=== PATIENT | male | born 1985 | race Caucasian/White ===

== ENCOUNTER 2018-06-15 06:54 | Emergency (ER) | payer OTHER ==
--- OUTSIDE RECORDS SUMMARY | 2018-06-15 06:56 | XMS REPORT | Clinical Summary ---
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 Last Filed Vital Signs Not on file Plan of Treatment Not on file Results Not on fileafter 06/14/2017 Insurance Payer Benefit Plan / Group Subscriber ID Type Phone Address MEDICARE MEDICARE PART A AND B xxxxxxxxxx Medicare [place], [place] Advance Directives Patient has advance care planning documents on file. For more information, please contact:[phone] [place] [address]
[2018-06-15] MEDS ORDERED: LORAZEPAM 1 MG TABLET ONE (07:38)
[2018-06-15] MEDS ORDERED: CLINDAMYCIN 600MG/D5W 0 MG/0 ML BAG IV ONE (07:38)
--- NOTE | 2018-06-15 08:00 | EDPHYS ---
Physician Documentation [facility] Name: Osvaldo Crowe Age: 33 yrs Sex: Male : 1985 Arrival Date: 06/15/2018 Time: 06:57 Bed 6 Private MD: ED Physician Nicola Moore HPI: 06/15 07:35 This 33 yrs old Male presents to ER via Ambulatory with complaints of kb Anxiety, hand cellulitis. 07:37 The patient presents with cellulitis of the left hand. Description: erythematous, kb swollen, warm. Onset: The symptoms/episode began/occurred 2 day(s) ago. Possible cause(s): unknown. Associated signs and symptoms: Pertinent positives: erythema, swelling, Pertinent negatives: discharge, drainage, foreign body sensation, fever, headache, nausea, shortness of breath, vomiting. Modifying factors: the symptoms are alleviated by nothing, the symptoms are aggravated by sitting, squeezing the lesion and expressing the contents, touching. Severity of symptoms: At their worst the symptoms were moderate, severe, in the emergency department the symptoms are unchanged. The patient has not experienced similar symptoms in the past. The patient has not recently seen a physician. Historical: - Allergies: 07:27 No Known Allergies; ss - PMHx: 07:27 Anxiety; Bipolar disorder; Depression; Schizophrenia; Panic Attacks; Seizures; ss - PSHx: 07:27 Open heart surgery; ss - Immunization history:: Adult Immunizations up to date. - Social history:: Smoking status: Patient uses tobacco products, smokes one pack cigarettes per day. - Ebola Screening: : Patient denies exposure to infectious person Patient denies travel to an Ebola-affected area in the 21 days before illness onset. ROS: 07:36 Constitutional: Negative for fever, chills, and weight loss, ENT: Negative for injury, kb pain, and discharge, Neck: Negative for injury, pain, and swelling, Cardiovascular: Negative for chest pain, palpitations, and edema, Respiratory: Negative for shortness of breath, cough, wheezing, and pleuritic chest pain, Abdomen/GI: Negative for abdominal pain, nausea, vomiting, diarrhea, and constipation, Back: Negative for injury and pain, : Negative for injury, bleeding, discharge, and swelling, MS/Extremity: Negative for injury and deformity. 07:36 Skin: Positive for cellulitis, erythema, swelling, of the left hand. 07:37 Psych: Positive for anxiety, Negative for depression, drug dependence, alcohol kb dependence, auditory hallucinations, visual hallucinations, homicidal ideation, insomnia, suicide gesture, suicidal ideation. Exam: 07:36 Constitutional: This is a well developed, well nourished patient who is awake, alert, kb and in no acute distress. Head/Face: Normocephalic, atraumatic. ENT: Nares patent. No nasal discharge, no septal abnormalities noted. Tympanic membranes are normal and external auditory canals are clear. Oropharynx with no redness, swelling, or masses, exudates, or evidence of obstruction, uvula midline. Mucous membranes moist. Neck: Trachea midline, no thyromegaly or masses palpated, and no cervical lymphadenopathy. Supple, full range of motion without nuchal rigidity, or vertebral point tenderness. No Meningismus. Chest/axilla: Normal chest wall appearance and motion. Nontender with no deformity. No lesions are appreciated. Cardiovascular: Regular rate and rhythm with a normal S1 and S2. No gallops, murmurs, or rubs. Normal PMI, no JVD. No pulse deficits. Respiratory: Lungs have equal breath sounds bilaterally, clear to auscultation and percussion. No rales, rhonchi or wheezes noted. No increased work of breathing, no retractions or nasal flaring. Abdomen/GI: Soft, non-tender, with normal bowel sounds. No distension or tympany. No guarding or rebound. No evidence of tenderness throughout. MS/ Extremity: Pulses equal, no cyanosis. Neurovascular intact. Full, normal range of motion. Neuro: Awake and alert, GCS 15, oriented to person, place, time, and situation. Cranial nerves II-XII grossly intact. Motor strength 5/5 in all extremities. Sensory grossly intact. Cerebellar exam normal. Normal gait. 07:36 Skin: cellulitis, that is moderate, that is severe, on the left hand. 07:36 Psych: Behavior/mood is cooperative, anxious, Affect is animated, Oriented to person, place, time, Patient has no thoughts/intents to harm self or others. Judgement / Insight is normal. Memory is normal. Delusions/hallucinations are not present. Vital Signs: 07:27 BP 146 / 91; Pulse 98; Resp 20; Temp 98.9(TE); Pulse Ox 99% on R/A; Weight 63.5 kg; ss Height 5 ft. 3 in. (160.02 cm); Pain 5/10; 07:27 Body Mass Index 24.80 (63.50 kg, 160.02 cm) ss MDM: 07:17 Patient medically screened. kb 07:33 Data reviewed: vital signs, nurses notes. Data interpreted: Pulse oximetry: on room air kb is 99 %. Interpretation: normal. 07:54 Counseling: I had a detailed discussion with the patient and/or guardian regarding: the kb historical points, exam findings, and any diagnostic results supporting the discharge/admit diagnosis, the need for further work-up and treatment in the hospital. Refusal of service: The patient/guardian displays adequate decision making capability and despite a detailed discussion of alternatives, benefits, risks, and consequences refuses: Admission to the hospital for further work-up and treatment, all lab tests, Medications. ED course: Pt refuses IV and blood work. States he cannot handle needles and just wants to go home. States "I will take whatever medicine I need, but please just let me go home. I don't want to be here." Pt tearful and anxious. Educated on need for IV antibiotics due to hand infection and risk of going home without recommended treatment. Pt still wants to leave, refuses IV and labs. Will give PO clindamycin. Pt educated on importance of returning for worsening symptoms. Pt states he will come back if it gets worse. . Administered Medications: 07:31 Drug: Ativan 1 mg Route: PO; sv 08:12 Follow up: Response: No adverse reaction; Anxiety decreased ss 08:02 Not Given (Patient Refused): Clindamycin 600 mg IVPB once over 30 mins; (mix in 50 mL) sv 08:02 Drug: Clindamycin 300 mg Route: PO; sv 08:12 Follow up: Response: Medication administered at discharge. ss Disposition: 06/16 07:32 Co-signature as Attending Physician, Nicola Moore MD I agree with the assessment and kdr plan of care. Disposition: 06/15/18 07:59 Patient has left against medical advice. Impression: Cellulitis of left upper limb - left hand. - Patients states they are going to Home. - Condition is Stable. - Discharge Instructions: Cellulitis, Adult, [id number]. - Prescriptions for Clindamycin HCl 300 mg Oral Capsule - take 1 capsule by ORAL route every 6 hours for 10 days; 40 capsule. Follow up: Emergency Department; When: As needed; Reason: Worsening of condition. Follow up: Private Physician; When: 2 - 3 days; Reason: Recheck today's complaints, Continuance of care, Re-evaluation by your physician. - Problem is new. - Symptoms are unchanged. Signatures: Dispatcher [employer] EDEvie Cody, DANDRE-Germán AMOS-Keri Ash, RN RN sv Nicola Moore MD MD [facility] Divya Conroy RN RN ss Corrections: (The following items were deleted from the chart) 06/15 08:02 07:23 IV Saline Lock ordered. kb 08:12 07:59 06/15/2018 07:59 Patients has left against medical advice. Impression: Cellulitis ss of left upper limb - left hand. Patient states they are going to Home. Condition is Stable. Follow up: Emergency Department; When: As needed; Reason: Worsening of condition. Follow up: Private Physician; When: 2 - 3 days; Reason: Recheck today's complaints, Continuance of care, Re-evaluation by your physician. Problem is new. Symptoms are unchanged. kb
--- NOTE | 2018-06-15 08:00 | ER ---
Nurse's Notes [facility] Name: Osvaldo Crowe Age: 33 yrs Sex: Male : 1985 Arrival Date: 06/15/2018 Time: 06:57 Bed 6 Private MD: Diagnosis: Cellulitis of left upper limb-left hand Presentation: 06/15 07:24 Presenting complaint: Patient states: L hand redness, pain and swelling that began 3 ss weeks ago as a "spider bite" as reported by patient and is now affecting the whole hand. Transition of care: patient was not received from another setting of care. Onset of symptoms was May 2018. Risk Assessment: Do you want to hurt yourself or someone else? Patient reports no desire to harm self or others. Initial Sepsis Screen: Does the patient meet any 2 criteria? HR > 90 bpm. Does the patient have a suspected source of infection? No. Patient's initial sepsis screen is negative. Care prior to arrival: None. 07:24 Method Of Arrival: Ambulatory ss 07:24 Acuity: LUCERO 3 ss Historical: - Allergies: 07:27 No Known Allergies; ss - PMHx: 07:27 Anxiety; Bipolar disorder; Depression; Schizophrenia; Panic Attacks; Seizures; ss - PSHx: 07:27 Open heart surgery; ss - Immunization history:: Adult Immunizations up to date. - Social history:: Smoking status: Patient uses tobacco products, smokes one pack cigarettes per day. - Ebola Screening: : Patient denies exposure to infectious person Patient denies travel to an Ebola-affected area in the 21 days before illness onset. Screenin:27 Abuse screen: Denies threats or abuse. Denies injuries from another. Nutritional sv screening: No deficits noted. Tuberculosis screening: No symptoms or risk factors identified. Fall Risk None identified. Assessment: 07:27 General: Appears uncomfortable, Behavior is anxious, crying, uncooperative, Family at sv the bedside. Pt immediately started crying and trying to get out of bed upon entry to the room to give him Ativan. Pt not wanting anything done. Family at bedside informed pt of the medication and I reinforced education. Pt now ok to take medication to help calm him down.. Neuro: Level of Consciousness is awake, alert, obeys commands, Oriented to person, place, time, situation. Respiratory: Respiratory effort is even, unlabored, Respiratory pattern is regular, symmetrical. 08:10 Reassessment: Pt and family member verbalizes understanding significant importance of ss following up with PCP as soon as possible. Pt is grateful for care received. Vital Signs: 07:27 BP 146 / 91; Pulse 98; Resp 20; Temp 98.9(TE); Pulse Ox 99% on R/A; Weight 63.5 kg; ss Height 5 ft. 3 in. (160.02 cm); Pain 5/10; 07:27 Body Mass Index 24.80 (63.50 kg, 160.02 cm) ss ED Course: 06:57 Patient arrived in ED. es 07:11 Evie Mccormick [facility]-C [facility]. kb 07:11 Connor Harry MD is Attending Physician. kb 07:20 Keri Mcconnell, TANNA is Primary Nurse. sv 07:26 Triage completed. ss 07:27 Arm band placed on right wrist. ss 07:27 Patient has correct armband on for positive identification. Bed in low position. Adult sv w/ patient. 07:59 Nicola Moore MD is Attending Physician. kb 08:10 No provider procedures requiring assistance completed. Patient did not have IV access ss during this emergency room visit. Administered Medications: 07:31 Drug: Ativan 1 mg Route: PO; sv 08:12 Follow up: Response: No adverse reaction; Anxiety decreased ss 08:02 Not Given (Patient Refused): Clindamycin 600 mg IVPB once over 30 mins; (mix in 50 mL) sv 08:02 Drug: Clindamycin 300 mg Route: PO; sv 08:12 Follow up: Response: Medication administered at discharge. ss Outcome: 08:10 AMA AMA form signed ss 08:10 Condition: stable 08:10 Discharge instructions given to patient, family, Instructed on discharge instructions, follow up and referral plans. medication usage, Demonstrated understanding of instructions, follow-up care, medications, Prescriptions given X 1. 08:12 Patient left the ED. ss Signatures: Evie Mccormick FNP-C FNP-Keri Ash, RN RN Sulma Andrade Shelby, RN RN
[2018-06-15] MEDS ORDERED: CLINDAMYCIN HCL 150 MG CAP ONE (08:10)
== END 2018-06-15 08:12 | disposition left against medical advice (07) ==
LOC: ER 06:54
DX: L03.114 Cellulitis of left upper limb (principal); F17.210 Nicotine dependence, cigarettes, uncomplicated
CPT/HCPCS: 99283

== ENCOUNTER 2019-06-15 07:57 | Emergency (ER) | payer OTHER ==
--- OUTSIDE RECORDS SUMMARY | 2019-06-15 08:00 | XMS REPORT ---
:1985 [facility] Address [address] [place] [address] Dr. Juares [address] [place] [id number] Care Team Providers Name Role Phone Unavailable Unavailable Unavailable Problems This patient has no known problems. Allergies, Adverse Reactions, Alerts This patient has no known allergies or adverse reactions. Medications This patient has no known medications.
--- OUTSIDE RECORDS SUMMARY | 2019-06-15 08:01 | XMS REPORT | Summary of Care ---
:1985 Author Organization [facility] - [facility] Address [address] [place] [address] Care Team Providers Name Role Phone Jesus Alberto Hernandez MD Primary Care Provider Unavailable Reason for Referral Radiology Services (STAT) Status Reason Specialty Diagnoses / Referred By Referred To Procedures Contact Contact New Request Diagnostic Diagnoses Suicidal ideation Edenilson Granados Radiology Procedures XR CHEST 1 III, [address] [facility] [place] [address] Radiology Services (STAT) Status Reason Specialty Diagnoses / Referred By Referred To Procedures Contact Contact New Request Diagnostic Diagnoses Suicidal ideation Edenilson Granados Radiology Procedures XR CHEST 1 III, [address] [facility] [place] [address] Reason for Visit Reason Comments Medication Problem Auth/Cert Status Reason Specialty Diagnoses / Referred By Referred To Procedures Contact Contact [facility] [address] [place] [address] [place] [address] Encounter Details Date Type Department Care Team Description 02/17/2019 - Emergency ADC-Emergency Edenilson Granados Suicidal ideation 02/18/2019 Department III, PA (Primary Dx) [address] [place] [address] [place] [address] [place], [place] [id number] Allergies Active Allergy Reactions Severity Noted Date Comments Ibuprofen Palpitations 09/09/2016 documented as of this encounter (statuses as of 02/18/2019) Medications Medication Sig Dispensed Refills Start Date End Date Status acetaminophen (TYLENOL) Take 2 tablets by 30 tablet 0 04/28/2016 Active 325 mg tablet mouth every 6 (six) hours as needed for Pain (scale 1-3) or Pain (scale 4-6). multivitamin tablet Take 1 tablet by 30 tablet 0 04/28/2016 Active mouth daily. documented as of this encounter (statuses as of 02/18/2019) Active Problems Problem Noted Date Acute respiratory failure 04/24/2016 Major depressive disorder, recurrent episode, severe 03/04/2006 Overview: ICD10 Diagnosis Term System Support Analyst Utility Other and unspecified alcohol dependence 03/04/2006 documented as of this encounter (statuses as of 02/18/2019) Social History Tobacco Use Types Packs/Day Years Used Date Never Assessed Sex Assigned at Date Recorded Not on file Job Start Date Occupation Industry Not on file Not on file Not on file Travel History Travel Start Travel End No recent travel history available. documented as of this encounter Last Filed Vital Signs Vital Sign Reading Time Taken Comments Blood Pressure 102/66 02/18/2019 1:30 AM CDT Pulse 71 02/18/2019 1:30 AM CDT Temperature 36.5 C (97.7 F) 02/17/2019 10:19 PM CDT Respiratory Rate 18 02/18/2019 1:30 AM CDT Oxygen Saturation 98% 02/18/2019 1:30 AM CDT Inhaled Oxygen Concentration - - Weight 59.9 kg (132 lb) 02/17/2019 10:19 PM CDT Height 165.1 cm (5' 5") 02/17/2019 10:19 PM CDT Body Mass Index 21.97 02/17/2019 10:19 PM CDT documented in this encounter Plan of Treatment Health Maintenance Due Date Last Done Comments PNEUMOCOCCAL 0-64 YEARS COMBINED SERIES (1 of 1 - 1990 PPSV23) VARICELLA VACCINES (1 of 2 - 13+ 2-dose series) 1997 DTaP,Tdap,and Td Vaccines (1 - Tdap) 2003 INFLUENZA VACCINE (Retired version) 02/26/2019 documented as of this encounter Procedures Procedure Name Priority Date/Time Associated Comments Diagnosis XR CHEST 1 VW STAT 02/17/2019 10:59 Suicidal ideation Results for this PM CDT procedure are in the results section. CBC WITH DIFFERENTIAL STAT 02/17/2019 10:57 Suicidal ideation Results for this PM CDT procedure are in the results section. ADC / LCC - DRUG STAT 02/17/2019 10:57 Suicidal ideation Results for this SCREEN TRIAGE PM CDT procedure are in the results section. URINALYSIS STAT 02/17/2019 10:57 Suicidal ideation Results for this PM CDT procedure are in the results section. CBC WITH DIFF Routine 02/17/2019 10:57 Suicidal ideation Results for this PM CDT procedure are in the results section. ETHANOL STAT 02/17/2019 10:57 Suicidal ideation Results for this PM CDT procedure are in the results section. ACETAMINOPHEN STAT 02/17/2019 10:57 Suicidal ideation Results for this PM CDT procedure are in the results section. COMP. METABOLIC PANEL STAT 02/17/2019 10:57 Suicidal ideation Results for this (99689) PM CDT procedure are in the results section. THYROID STIMULATING STAT 02/17/2019 10:57 Suicidal ideation Results for this HORMONE PM CDT procedure are in the results section. EKG-12 LEAD Routine 02/17/2019 10:31 PM CDT documented in this encounter Results XR CHEST 1 VW (02/17/2019 10:59 PM CDT) Specimen Impressions Performed At [facility]/VR/DOSE No acute cardiopulmonary abnormality. Elizabet Pfeiffer MD., have reviewed this study and agree with the above report. Narrative Performed At * * * * * * * * ORIGINAL REPORT * * * * * * * * [facility]/VR/DOSE XR CHEST 1 VW HISTORY: Admission clearance COMPARISON: 04/16/2016 FINDINGS: The lungs are clear. No focal consolidation, pneumothorax, or pleural effusion is seen. The cardiomediastinal silhouette is normal. No acute osseous abnormality. Procedure Note [facility], Radiant Results Inft User - 02/17/2019 11:52 PM CDT * * * * * * * * ORIGINAL REPORT * * * * * * * * XR CHEST 1 VW HISTORY: Admission clearance COMPARISON: 04/16/2016 FINDINGS: The lungs are clear. No focal consolidation, pneumothorax, or pleural effusion is seen. The cardiomediastinal silhouette is normal. No acute osseous abnormality. IMPRESSION No acute cardiopulmonary abnormality. Tanika Pfeiffer MD., have reviewed this study and agree with the above report. Performing Organization Address City/State/Zipcode Phone Number [facility]//DOSE CBC WITH DIFFERENTIAL (02/17/2019 10:57 PM CDT) WBC 7.35 4.20 - 10.[address] [facility] 10*3/L [facility] RBC 4.68 4.26 - 5.[address] [facility] 10*6/L [facility] HGB 14.0 12.2 - 16.4 g/dL [facility] HCT 42.0 38.4 - 49.3 % [facility] MCV 89.7 81.7 - 95.6 fL [facility] MCH 29.9 26.1 - 32.7 pg [facility] MCHC 33.3 31.2 - 35.0 g/dL [facility] RDW-SD 43.0 38.5 - 51.6 fL [facility] RDW-CV 12.9 12.1 - 15.4 % [facility] PLT 230 150 - [address] [facility] 10*3/L [facility] MPV 9.7 (L) 9.8 - 13.0 fL [facility] NRBC/100 WBC 0.0 0.0 - 10.0 /[address] [facility] WBCs [facility] NRBC x10^3 <0.01 10*3/L [facility] GRAN MAT (NEUT) % 57.3 % [facility] IMM GRAN % 0.40 % [facility] LYMPH % 32.4 % [facility] MONO % 8.7 % [facility] EOS % 0.8 % [facility] BASO % 0.4 % [facility] GRAN MAT x10^3(ANC) 4.21 1.99 - 6.[address] [facility] 10*3/uL [facility] IMM GRAN x10^3 0.03 0.00 - [address] [facility] 10*3/uL [facility] LYMPH x10^3 2.38 1.09 - 3.[address] [facility] 10*3/uL [facility] MONO x10^3 0.64 0.36 - [address] [facility] 10*3/uL [facility] EOS x10^3 0.06 0.06 - [address] [facility] 10*3/uL [facility] BASO x10^3 0.03 0.01 - 0.[address] [facility] 10*3/uL [facility] Specimen Blood - VENOUS Performing Organization Address City/[facility]/Zipcode Phone Number [facility] CLIA: [id number], [address] [place] [address] URINALYSIS (02/17/2019 10:57 PM CDT) APPEARANCE Slightly Cloudy (A) Clear [facility] COLOR Yellow Yellow [facility] PH 7.0 4.8 - 8.0 [facility] SP GRAVITY 1.020 1.003 - 1.030 [facility] GLU U QUAL Negative Negative [facility] BLOOD Negative Negative [facility] KETONES Negative Negative [facility] PROTEIN Negative Negative [facility] UROBILIN 0.2 mg/dL 0-1.0 mg/dL [facility] BILIRUBIN Negative Negative [facility] NITRITE Negative Negative [facility] LEUK LYNN Negative Negative [facility] RBC/HPF 1 0 - 3 HPF [facility] WBC/HPF 0 0 - 5 HPF [facility] BACTERIA Few (A) Negative [facility] AMORPHOUS Moderate HPF [facility] Specimen Urine - URINE, CLEAN CATCH Performing Organization Address City/[facility] Phone Number [facility] CLIA: [id number], [address] [place] [address] COMP. METABOLIC PANEL (76248) (02/17/2019 10:57 PM CDT) NA 142 135 - 145 mmol/L [facility] K 4.0 3.5 - 5.0 mmol/L [facility] CL 107 98 - 108 mmol/L [facility] CO2 TOTAL 24 23 - 31 mmol/L [facility] AGAP 11 2 - 16 [facility] BUN 16 7 - 23 mg/dL [facility] GLUCOSE 105 70 - 110 mg/dL [facility] CREATININE 0.74 0.60 - 1.[address] [facility] mg/dL [facility] TOTAL BILI 0.3 0.1 - 1.1 mg/dL [facility] CALCIUM 9.5 8.6 - 10.6 mg/dL [facility] T PROTEIN 7.0 6.3 - 8.2 g/dL [facility] ALBUMIN 4.3 3.5 - 5.0 g/dL [facility] ALK PHOS 97 34 - 122 U/L [facility] ALT(SGPT) 16 9 - 51 U/L [facility] AST(SGOT) 18 13 - 40 U/L [facility] eGFR Calculation 121.1 mL/min/1.73m2 [facility] (Non-) [facility] eGFR Calculation 146.7 mL/min/1.73m2 [facility] () [facility] Specimen Blood - VENOUS Narrative Performed At Association of Glomerular Filtration Rate (GFR) [facility] and Staging of Kidney Disease* + + +- + | GFR (mL/min/1.73 m2)| With Kidney Damage|Without Kidney Damage + + +- + |>90| Stage one| Normal + + +- + |60-89|S tage two| Decreased GFR + + +- + |30-59|S tage three| Stage three + + +- + |15-29|S tage four | Stage four + + +- + |<15 (or dialysis)|Stage five | Stage five + + +- + *Each stage assumes the associated GFR level has been in effect for at least three months.Stages 1 to 5, with or without kidney disease, indicate chronic kidney disease. Notes: Determination of stages one and two (with eGFR >59mL/min/1.73 m2) requires estimation of kidney damage for at least three months as defined by structural or functional abnormalities of the kidney, manifested by either: Pathological abnormalities or Markers of kidney damage (including abnormalities in the composition of the blood or urine or abnormalities in imaging tests). Performing Organization Address City/[facility]/Zipcode Phone Number [facility] CLIA: [id number], [address] [place] [address] THYROID STIMULATING HORMONE (02/17/2019 10:57 PM CDT) TSH 4.66 0.45 - 4.70 mIU/L [facility] Specimen Blood - VENOUS Performing Organization Address City/[facility]/Zipcode Phone Number [facility] CLIA: [id number], [address] [place] [address] ETHANOL (02/17/2019 10:57 PM CDT) ALCOHOL <10 mg/dL [facility] Specimen Blood - VENOUS Narrative Performed At <10 Negative [facility] LAB[facility]ORY 50-100 Toxic >100 Depression of TIP MENDER >400 Fatalities Reported Performing Organization Address [facility] Facility[facility] Phone Number [facility] CLIA: [id number], [address] [place] [address] ADC / LCC - DRUG SCREEN TRIAGE (02/17/2019 10:57 PM CDT) BENZO U Negative Negative [facility]OR[facility] VENKATESH U Negative Negative [facility] AMPHET Negative Negative [facility] THC Negative Negative [facility] METHADONE Negative Negative [facility] Meth U Negative Negative [facility] OPIATES Negative Negative [facility] Cocaine Metabolite Negative Negative [facility] PROPOXY Negative Negative [facility] Tric U Negative Negative [facility] PCP Negative Negative [facility] OXYCOD Negative Negative [facility] Specimen Urine - URINE, CLEAN CATCH Narrative Performed At Urine Drug Cutoff Ranges [facility] Benzodiazepines: 150 ng/mL Barbiturates: 200 ng/mL Amphetamine: 500 ng/mL Cannabinoids: 50ng/mL Methadone: 200 ng/mL Methamphetamine: 500 ng/mL Opiates: 100 ng/mL or 2000 ng/mL Cocaine: 150 ng/mL Propoxyphene:300 ng/mL Tricyclics:300 ng/mL Oxycodone: 100 ng/mL PCP: 25ng/mL The results are to be used only for medical (i.e., treatment) purposes. Unconfirmed screening results must not be used for non-medical purposes (e.g., employment testing, legal testing). Performing Organization Address [facility] Phone Number [facility] CLIA: [id number], [address] [place] [address] ACETAMINOPHEN (02/17/2019 10:57 PM CDT) ACETAMINOP <10.0 (L) 10.0 - 30.0 ug/mL [facility]ORY Specimen Blood - VENOUS Narrative Performed At Toxic: Greater than 200 ug/mL @ 4 hour post [facility] ingestion or greater than 50 ug/mL @ 12 hour post ingestion Performing Organization Address City/State/Zipcode Phone Number [facility] CLIA: [id number], [address] [place] [address] documented in this encounter Visit Diagnoses Diagnosis Suicidal ideation - Primary documented in this encounter Insurance Payer Benefit Plan / Subscriber ID Effective Dates Phone Address Type Group MEDICARE MEDICARE PART xxxxxxxxxx 2016-Nhi [phone] [address] Medicare [id number] [place] [phone] (Home) [place] [address] documented as of this encounter
--- NOTE | 2019-06-15 08:15 | EDPHYS ---
Physician Documentation [facility] Name: Osvaldo Crowe Age: 34 yrs Sex: Male : 1985 Arrival Date: 06/15/2019 Time: 07:59 Bed 5 Private MD: ED Physician Connor Harry HPI: 06/15 08:39 This 34 yrs old Male presents to ER via Ambulatory with complaints of Hand snw Injury. 08:39 The patient or guardian reports pain. The complaints affect the PIP of right index snw finger, PIP of right middle finger, PIP of right ring finger and PIP of right little finger. Context: The problem was sustained at home, resulted from a direct blow, by a heavy object. Onset: The symptoms/episode began/occurred suddenly, today. Modifying factors: the symptoms are aggravated by touching area. Associated signs and symptoms: The patient has no apparent associated signs or symptoms. Severity of symptoms: At their worst the symptoms were mild, moderate. The patient has experienced similar episodes in the past. It is unknown whether or not the patient has recently seen a physician. multiple surgical procedures on right hand s/p remote injury, very poor rom of fingers since. Historical: - Allergies: 08:04 No Known Drug Allergies; sv - PMHx: 08:04 Anxiety; Bipolar disorder; Depression; Panic Attacks; Schizophrenia; Seizures; sv - PSHx: 08:04 Open heart surgery; sv 08:11 hand; sv - Immunization history:: Adult Immunizations up to date. - Social history:: Smoking status: Patient uses tobacco products. - Ebola Screening: : No symptoms or risks identified at this time. ROS: 08:38 Constitutional: Negative for fever, chills, and weight loss, Eyes: Negative for injury, snw pain, redness, and discharge, ENT: Negative for injury, pain, and discharge, Neck: Negative for injury, pain, and swelling, Cardiovascular: Negative for chest pain, palpitations, and edema, Respiratory: Negative for shortness of breath, cough, wheezing, and pleuritic chest pain, Abdomen/GI: Negative for abdominal pain, nausea, vomiting, diarrhea, and constipation, Back: Negative for injury and pain, : Negative for injury, bleeding, discharge, and swelling, Skin: Negative for injury, rash, and discoloration, Neuro: Negative for headache, weakness, numbness, tingling, and seizure. 08:38 MS/extremity: Positive for abrasion, contusion, pain, of the dorsal aspect of middle phalanx of right index finger, dorsal aspect of middle phalanx of right middle finger, dorsal aspect of middle phalanx of right ring finger and dorsal aspect of middle phalanx of right little finger. Exam: 08:33 Constitutional: This is a well developed, well nourished patient who is awake, alert, snw and in no acute distress. Head/Face: Normocephalic, atraumatic. Eyes: Pupils equal round and reactive to light, extra-ocular motions intact. Lids and lashes normal. Conjunctiva and sclera are non-icteric and not injected. Cornea within normal limits. Periorbital areas with no swelling, redness, or edema. ENT: Nares patent. No nasal discharge, no septal abnormalities noted. Tympanic membranes are normal and external auditory canals are clear. Oropharynx with no redness, swelling, or masses, exudates, or evidence of obstruction, uvula midline. Mucous membranes moist. Neck: Trachea midline, no thyromegaly or masses palpated, and no cervical lymphadenopathy. Supple, full range of motion without nuchal rigidity, or vertebral point tenderness. No Meningismus. Chest/axilla: Normal chest wall appearance and motion. Nontender with no deformity. No lesions are appreciated. + scar to central chest, post heart surgery as a baby Cardiovascular: Regular rate and rhythm with a normal S1 and S2. No gallops, murmurs, or rubs. Normal PMI, no JVD. No pulse deficits. Respiratory: Lungs have equal breath sounds bilaterally, clear to auscultation and percussion. No rales, rhonchi or wheezes noted. No increased work of breathing, no retractions or nasal flaring. Abdomen/GI: Soft, non-tender, with normal bowel sounds. No distension or tympany. No guarding or rebound. No evidence of tenderness throughout. Back: No spinal tenderness. No costovertebral tenderness. Full range of motion. Neuro: Awake and alert, GCS 15, oriented to person, place, time, and situation. Cranial nerves II-XII grossly intact. Motor strength 5/5 in all extremities. Sensory grossly intact. Cerebellar exam normal. Normal gait. Psych: Awake, alert, with orientation to person, place and time. Behavior, mood, and affect are within normal limits. 08:33 Musculoskeletal/extremity: Extremities: grossly normal except: noted in the right hand: decreased ROM, claw shaped hand with decreased ROM of digits 2nd to remote injury with multiple surgical procedures, increased sensation to area, Circulation is intact in all extremities. increased 08:33 Skin: Appearance: normal except for affected area, injury, abrasion(s), small abrasion noted, of the dorsal aspect of middle phalanx of right middle finger. Vital Signs: 08:11 BP 132 / 88; Pulse 85; Resp 18; Temp 98; Pulse Ox 100% ; Weight 59.87 kg; Height 5 ft. sv 5 in. (165.10 cm); Pain 6/10; 08:11 Body Mass Index 21.97 (59.87 kg, 165.10 cm) sv MDM: 08:14 Patient medically screened. snw 08:37 Data reviewed: vital signs, nurses notes. Data interpreted: Pulse oximetry: on room air snw is 100 %. Interpretation: normal. Counseling: I had a detailed discussion with the patient and/or guardian regarding: the historical points, exam findings, and any diagnostic results supporting the discharge/admit diagnosis, the presence of at least one elevated blood pressure reading (>120/80) during this emergency department visit, the need for outpatient follow up, for definitive care, to return to the emergency department if symptoms worsen or persist or if there are any questions or concerns that arise at home. Special discussion: I have referred the patient to see his PCP for further evaluation of high blood pressure. Based on the history and exam findings, there is no indication for further emergent testing or inpatient evaluation. I discussed with the patient/guardian the need to see the hand specialist for further evaluation of the symptoms. I discussed with the patient/guardian the need to see the primary care provider for further evaluation of the symptoms. Administered Medications: 08:25 Drug: [place] 5 mg-325 mg 1 tabs {Note: rass1.} Route: PO; sv 08:25 Follow up: Response: Medication administered at discharge. sv 08:25 Drug: KeFLEX 500 mg Route: PO; sv 08:25 Follow up: Response: Medication administered at discharge. sv Disposition: 08:53 Co-signature as Attending Physician, Connor Harry MD. rn Disposition: 06/15/19 08:14 Discharged to Home. Impression: Contusion of right hand, Abrasion of right hand. - Condition is Stable. - Discharge Instructions: Hand Contusion, Hand Washing, Cryotherapy. - Prescriptions for Keflex 500 mg Oral capsule - take 1 capsule by ORAL route every 8 hours; 30 capsule. Tylenol- Codeine #3 300-30 mg Oral Tablet - take 1 tablet by ORAL route every 6 hours As needed; 6 tablet. - Work release form, Medication Reconciliation Form, Thank You Letter, Antibiotic Education, Prescription Opioid Use form. - Follow up: Emergency Department; When: As needed; Reason: Worsening of condition. Follow up: Private Physician; When: 2 - 3 days; Reason: Recheck today's complaints, Continuance of care, Re-evaluation by your physician. Signatures: Keri Mcconnell RN RN Debra Gonzalez, DUCK FARMER-C DUCK FARMER-Csnw Connor Harry MD MD burner tender: (The following items were deleted from the chart) 08:26 08:14 06/15/2019 08:14 Discharged to Home. Impression: Contusion of right hand; sv Abrasion of right hand. Condition is Stable. Forms are Medication Reconciliation Form, Thank You Letter, Antibiotic Education, Prescription Opioid Use. Follow up: Emergency Department; When: As needed; Reason: Worsening of condition. Follow up: Private Physician; When: 2 - 3 days; Reason: Recheck today's complaints, Continuance of care, Re-evaluation by your physician. snw 08:42 08:33 Constitutional: This is a well developed, well nourished patient who is awake, snw alert, and in no acute distress. Head/Face: Normocephalic, atraumatic. Eyes: Pupils equal round and reactive to light, extra-ocular motions intact. Lids and lashes normal. Conjunctiva and sclera are non-icteric and not injected. Cornea within normal limits. Periorbital areas with no swelling, redness, or edema. ENT: Nares patent. No nasal discharge, no septal abnormalities noted. Tympanic membranes are normal and external auditory canals are clear. Oropharynx with no redness, swelling, or masses, exudates, or evidence of obstruction, uvula midline. Mucous membranes moist. Neck: Trachea midline, no thyromegaly or masses palpated, and no cervical lymphadenopathy. Supple, full range of motion without nuchal rigidity, or vertebral point tenderness. No Meningismus. Chest/axilla: Normal chest wall appearance and motion. Nontender with no deformity. No lesions are appreciated. Cardiovascular: Regular rate and rhythm with a normal S1 and S2. No gallops, murmurs, or rubs. Normal PMI, no JVD. No pulse deficits. Respiratory: Lungs have equal breath sounds bilaterally, clear to auscultation and percussion. No rales, rhonchi or wheezes noted. No increased work of breathing, no retractions or nasal flaring. Abdomen/GI: Soft, non-tender, with normal bowel sounds. No distension or tympany. No guarding or rebound. No evidence of tenderness throughout. Back: No spinal tenderness. No costovertebral tenderness. Full range of motion. Neuro: Awake and alert, GCS 15, oriented to person, place, time, and situation. Cranial nerves II-XII grossly intact. Motor strength 5/5 in all extremities. Sensory grossly intact. Cerebellar exam normal. Normal gait. Psych: Awake, alert, with orientation to person, place and time. Behavior, mood, and affect are within normal limits. snw
--- NOTE | 2019-06-15 08:15 | ER ---
Nurse's Notes [facility] Name: Osvaldo Crowe Age: 34 yrs Sex: Male : 1985 Arrival Date: 06/15/2019 Time: 07:59 Bed 5 Private MD: Diagnosis: Contusion of right hand;Abrasion of right hand Presentation: 06/15 08:09 Presenting complaint: Patient states: right hand injury after having a riding lawn sv mower motor fall on it this morning. Transition of care: patient was not received from another setting of care. Onset of symptoms was June 15, 2019. Risk Assessment: Do you want to hurt yourself or someone else? Patient reports no desire to harm self or others. Initial Sepsis Screen: Does the patient meet any 2 criteria? No. Patient's initial sepsis screen is negative. Does the patient have a suspected source of infection? No. Patient's initial sepsis screen is negative. Care prior to arrival: None. 08:09 Method Of Arrival: Ambulatory sv 08:09 Acuity: LUCERO 3 sv Triage Assessment: 08:09 General: Appears in no apparent distress. uncomfortable, Behavior is cooperative, sv appropriate for age. Pain: Complains of pain in right hand Pain currently is 6 out of 10 on a pain scale. Neuro: Level of Consciousness is awake, alert, obeys commands, Oriented to person, place, time, situation, Moves all extremities. Full function Gait is steady. Respiratory: Airway is patent Respiratory effort is even, unlabored, Respiratory pattern is regular, symmetrical. Musculoskeletal: Range of motion: limited in right hand. Injury Description: Crush injury sustained to right hand was sustained 2-4 hours ago. Historical: - Allergies: 08:04 No Known Drug Allergies; sv - PMHx: 08:04 Anxiety; Bipolar disorder; Depression; Panic Attacks; Schizophrenia; Seizures; sv - PSHx: 08:04 Open heart surgery; sv 08:11 hand; sv - Immunization history:: Adult Immunizations up to date. - Social history:: Smoking status: Patient uses tobacco products. - Ebola Screening: : No symptoms or risks identified at this time. Screenin:11 Abuse screen: Denies threats or abuse. Denies injuries from another. Nutritional sv screening: No deficits noted. Tuberculosis screening: No symptoms or risk factors identified. Fall Risk None identified. Assessment: 08:25 Reassessment: Patient appears in no apparent distress at this time. No changes from sv previously documented assessment. Patient and/or family updated on plan of care and expected duration. Pain level reassessed. Patient is alert, oriented x 3, equal unlabored respirations, skin warm/dry/pink. Mother stated that they are calling for a ride home right now because they do not drive. Vital Signs: 08:11 BP 132 / 88; Pulse 85; Resp 18; Temp 98; Pulse Ox 100% ; Weight 59.87 kg; Height 5 ft. sv 5 in. (165.10 cm); Pain 6/10; 08:11 Body Mass Index 21.97 (59.87 kg, 165.10 cm) sv ED Course: 07:59 Patient arrived in ED. as 08:02 Debra Galindo [facility]-C [facility]. snw 08:02 Connor Harry MD is Attending Physician. snw 08:03 Keri Mcconnell RN is Primary Nurse. sv 08:03 Arm band placed on Patient placed in an exam room, on a stretcher. sv 08:10 Triage completed. sv 08:11 Nurse Practitioner and/or Physician Edge Grinder Machine to see patient. sv 08:11 Patient has correct armband on for positive identification. Bed in low position. Call sv light in reach. Adult w/ patient. Pulse ox on. NIBP on. Door closed. Head of bed elevated. 08:26 No provider procedures requiring assistance completed. Patient did not have IV access sv during this emergency room visit. Administered Medications: 08:25 Drug: [place] 5 mg-325 mg 1 tabs {Note: rass1.} Route: PO; sv 08:25 Follow up: Response: Medication administered at discharge. sv 08:25 Drug: KeFLEX 500 mg Route: PO; sv 08:25 Follow up: Response: Medication administered at discharge. sv Outcome: 08:14 Discharge ordered by . snw 08:26 Discharged to home ambulatory, with family. sv 08:26 Condition: stable 08:26 Discharge instructions given to patient, family, Instructed on discharge instructions, follow up and referral plans. no drinking with medication, no driving heavy equipment, medication usage, Demonstrated understanding of instructions, follow-up care, medications, Prescriptions given X 2. 08:26 Patient left the ED. sv Signatures: Keri Mcconnell RN RN sv Mateo, Debra, CASHIER SELF SERVICE GASOLINE-C CASHIER SELF SERVICE GASOLINE-Csnw Sharmila Tillman as
[2019-06-15] MEDS ORDERED: CEPHALEXIN 250 MG CAP ONE (08:19)
[2019-06-15] MEDS ORDERED: HYDROCODONE/APAP 5/325 MG TAB ONE (08:19)
[2019-06-15 08:37] VITALS: BP 132/88; TEMP 98; O2SAT 100
== END 2019-06-15 08:26 | disposition home or self-care (01) ==
LOC: ER 07:57
DX: S60.511A Abrasion of right hand, initial encounter (principal); W22.8XXA Striking against or struck by other objects, initial encounter; Y93.9 Activity, unspecified; Y92.009 Unspecified place in unspecified non-institutional (private) residence as the place of occurrence of the external cause; Z72.0 Tobacco use
CPT/HCPCS: 99283

== ENCOUNTER 2020-04-17 17:31 | Emergency (ER) | payer OTHER ==
--- OUTSIDE RECORDS SUMMARY | 2020-04-17 17:33 | XMS REPORT | Continuity of Care Document ---
:1985 Author Organization [facility] t Address [address] [place] [address] Care Team Providers Name Role Phone Asked, Pcp Primary Care Physician Unavailable Terri Mendoza Attending Clinician Payers Payer Name Policy Type Policy Effective Date Expiration Date Sour ce Number MEDICAREMEDICARE PART [id number] 2016 Natalio shirin Terri AND 00:00:00 [place] [id number] [address] Problems Condition Condition Condition Status Onset Resolution Last Treating Co mments Source Name Details Category Date Date Treatment Clinician Date Drug-induc Drug-induc Disease Active H [facility] ed ed 3-16 [facility] intensive intensive 00:00: care care 00 psychosis psychosis Allergies, Adverse Reactions, Alerts This patient has no known allergies or adverse reactions. Family History Family Member Diagnosis Comments Start Date Stop Date Source Natural father Bipolar disorder [facility] Judaism Natural mother Alcohol abuse Alexandre Judaism Social History Social Habit Start Date Stop Date Quantity Comments Source History of tobacco Cigarette Smoker Alexandre use Judaism Sex Assigned At [facility] Cigarettes smoked 2016-09-15 2016-09-15 [facility] current (pack per 00:00:00 00:00:[address] day) - Reported Cigarette 2016-09-15 2016-09-15 [facility] pack-years 00:00:00 00:00:00 Judaism Alcohol intake 2016-09-15 2016-09-15 Current drinker [place] on 00:00:00 00:00:00 of alcohol Judaism (finding) Smoking Status Start Date Stop Date Source Current every day smoker 2016-09-15 00:00:00 Marco Antonio lopez Judaism Medications This patient has no known medications. Procedures This patient has no known procedures. Encounters Start End Encounter Admission Attending Care Care Encounter Source Date/Time Date/Time Type Type Clinicians Facility Department ID 2019-02-17 2019-02-18 Emergency [facility] [id number] 22:23:41 01:31:00 [facility] [id number] [place] [id number] [place] [id number] Results This patient has no known results.
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
--- NOTE | 2020-04-17 18:17 | EDPHYS ---
Physician Documentation [facility] Name: Osvaldo Crowe Age: 35 yrs Sex: Male : 1985 Arrival Date: 04/17/2020 Time: 17:33 Bed 25 Private MD: Max Lawson HPI: 04/17 18:13 This 35 yrs old Male presents to ER via Ambulatory with complaints of fernando Toothache. 18:13 The patient presents with broken tooth/teeth, pain, redness, swelling. The problem is fernando located in the right cheek, gums and right buccal mucosa and right jaw. Onset: The symptoms/episode began/occurred 3 day(s) ago. Duration: The symptoms are continuous, and are steadily getting worse. Modifying factors: The symptoms are alleviated by nothing, the symptoms are aggravated by nothing. Associated signs and symptoms: The patient has no apparent associated signs or symptoms. Severity of symptoms: At their worst the symptoms were. Historical: - Allergies: 17:41 No Known Allergies; ca1 - Home Meds: 17:41 None [Active]; ca1 - PMHx: 17:41 Anxiety; Bipolar disorder; Depression; Panic Attacks; Schizophrenia; Seizures; ca1 - PSHx: 17:41 Open heart surgery; hand; ca1 - Immunization history:: Adult Immunizations not up to date, Flu vaccine is not up to date. - Social history:: Smoking status: Patient reports the use of cigarette tobacco products, smokes one-half pack cigarettes per day. - Family history:: not pertinent. ROS: 18:13 Constitutional: Negative for fever, chills, and weight loss, Eyes: Negative for injury, fernando pain, redness, and discharge, Neck: Negative for injury, pain, and swelling, Cardiovascular: Negative for chest pain, palpitations, and edema, Respiratory: Negative for shortness of breath, cough, wheezing, and pleuritic chest pain, Abdomen/GI: Negative for abdominal pain, nausea, vomiting, diarrhea, and constipation, Back: Negative for injury and pain, : Negative for injury, bleeding, discharge, and swelling, MS/Extremity: Negative for injury and deformity, Skin: Negative for injury, rash, and discoloration, Neuro: Negative for headache, weakness, numbness, tingling, and seizure, Psych: Negative for depression, anxiety, suicide ideation, homicidal ideation, and hallucinations, Allergy/Immunology: Negative for hives, rash, and allergies, Endocrine: Negative for neck swelling, polydipsia, polyuria, polyphagia, and marked weight changes, Hematologic/Lymphatic: Negative for swollen nodes, abnormal bleeding, and unusual bruising. 18:13 ENT: Positive for dental pain, Teeth pain Exam: 18:13 Constitutional: This is a well developed, well nourished patient who is awake, alert, fernando and in no acute distress. Eyes: Pupils equal round and reactive to light, extra-ocular motions intact. Lids and lashes normal. Conjunctiva and sclera are non-icteric and not injected. Cornea within normal limits. Periorbital areas with no swelling, redness, or edema. Neck: Trachea midline, no thyromegaly or masses palpated, and no cervical lymphadenopathy. Supple, full range of motion without nuchal rigidity, or vertebral point tenderness. No Meningismus. Chest/axilla: Normal chest wall appearance and motion. Nontender with no deformity. No lesions are appreciated. Cardiovascular: Regular rate and rhythm with a normal S1 and S2. No gallops, murmurs, or rubs. Normal PMI, no JVD. No pulse deficits. Respiratory: Lungs have equal breath sounds bilaterally, clear to auscultation and percussion. No rales, rhonchi or wheezes noted. No increased work of breathing, no retractions or nasal flaring. Abdomen/GI: Soft, non-tender, with normal bowel sounds. No distension or tympany. No guarding or rebound. No evidence of tenderness throughout. Back: No spinal tenderness. No costovertebral tenderness. Full range of motion. Male : Normal genitalia with no discharge or lesions. Skin: Warm, dry with normal turgor. Normal color with no rashes, no lesions, and no evidence of cellulitis. MS/ Extremity: Pulses equal, no cyanosis. Neurovascular intact. Full, normal range of motion. Neuro: Awake and alert, GCS 15, oriented to person, place, time, and situation. Cranial nerves II-XII grossly intact. Motor strength 5/5 in all extremities. Sensory grossly intact. Cerebellar exam normal. Normal gait. Psych: Awake, alert, with orientation to person, place and time. Behavior, mood, and affect are within normal limits. 18:13 Head/face: Noted is swelling, tenderness, that is moderate, of the right cheek, gums and right buccal mucosa. Vital Signs: 17:39 BP 141 / 78; Pulse 73; Resp 16 S; Temp 97.3(TE); Pulse Ox 96% on R/A; Weight 58.97 kg ca1 (R); Height 5 ft. 5 in. (165.10 cm) (R); Pain 7/10; 17:39 Body Mass Index 21.63 (58.97 kg, 165.10 cm) ca1 MDM: 17:57 Patient medically screened. fernando 18:18 Differential diagnosis: dental caries, gingivitis, dental abscess, acute necrotizing fernando ulcerative gingivitis. Data reviewed: vital signs, nurses notes. Data interpreted: compliance monitor: not applicable for this patient encounter. rate is 96 beats/min, rhythm is regular, Pulse oximetry: on room air is 96 %. Counseling: I had a detailed discussion with the patient and/or guardian regarding: the historical points, exam findings, and any diagnostic results supporting the discharge/admit diagnosis, the need for outpatient follow up, for definitive care, a dentist, an oral maxilofacial specialist. Administered Medications: 18:18 Drug: [place] 10 mg-325 mg 1 tabs Route: PO; iw 18:20 Follow up: Response: No adverse reaction iw 18:18 Drug: Clindamycin 300 mg Route: PO; iw 18:20 Follow up: Response: No adverse reaction iw Disposition: 04/17/20 18:17 Discharged to Home. Impression: Dental caries, Dental root caries. - Condition is Stable. - Discharge Instructions: Dental Caries, Adult, Dental Pain, Dental Pain, [id number], Dental Caries, [id number]. - Prescriptions for Clindamycin HCl 300 mg Oral Capsule - take 1 capsule by ORAL route every 6 hours for 10 days; 40 capsule. Tylenol- Codeine #3 300-30 mg Oral Tablet - take 2 tablets by ORAL route every 6 hours As needed; 24 tablet. - Medication Reconciliation Form, Thank You Letter, Antibiotic Education, Prescription Opioid Use form. - Follow up: Private Physician; When: 2 - 3 days; Reason: Recheck today's complaints, Continuance of care, Re-evaluation by your physician. Follow up: Fortunato Balderas DDS; When: Tomorrow; Reason: Recheck today's complaints, Re-evaluation by your physician. - Problem is new. - Symptoms have improved. Signatures: Max Cheek MD MD cha Williams, Irene, RN RN iw Acob, Cheryl, RN RN ca1 Corrections: (The following items were deleted from the chart) 18:27 18:17 04/17/2020 18:17 Discharged to Home. Impression: Dental caries; Dental root iw caries. Condition is Stable. Forms are Medication Reconciliation Form, Thank You Letter, Antibiotic Education, Prescription Opioid Use. Follow up: Private Physician; When: 2 - 3 days; Reason: Recheck today's complaints, Continuance of care, Re-evaluation by your physician. Follow up: Fortunato Balderas; When: Tomorrow; Reason: Recheck today's complaints, Re-evaluation by your physician. Problem is new. Symptoms have improved. fernando
--- NOTE | 2020-04-17 18:17 | ER ---
Nurse's Notes [facility] Name: Osvaldo Crowe Age: 35 yrs Sex: Male : 1985 Arrival Date: 04/17/2020 Time: 17:33 Bed 25 Private MD: Diagnosis: Dental caries;Dental root caries Presentation: 04/17 17:39 Chief complaint: Patient states: tooth abscess x 2 days. Swelling on R side of face. ca1 Coronavirus screen: Client denies travel out of the [place] in the last 14 days. At this time, the client does not indicate any symptoms associated with coronavirus-19. Ebola Screen: Patient negative for fever greater than or equal to 101.5 degrees Fahrenheit, and additional compatible Ebola Virus Disease symptoms Patient denies exposure to infectious person. Patient denies travel to an Ebola-affected area in the 21 days before illness onset. No symptoms or risks identified at this time. Initial Sepsis Screen: Does the patient meet any 2 criteria? No. Patient's initial sepsis screen is negative. Does the patient have a suspected source of infection? No. Patient's initial sepsis screen is negative. Risk Assessment: Do you want to hurt yourself or someone else? Patient reports no desire to harm self or others. Onset of symptoms was April 17, 2020. 17:39 Method Of Arrival: Ambulatory ca1 17:39 Acuity: LUCERO 4 ca1 Historical: - Allergies: 17:41 No Known Allergies; ca1 - Home Meds: 17:41 None [Active]; ca1 - PMHx: 17:41 Anxiety; Bipolar disorder; Depression; Panic Attacks; Schizophrenia; Seizures; ca1 - PSHx: 17:41 Open heart surgery; hand; ca1 - Immunization history:: Adult Immunizations not up to date, Flu vaccine is not up to date. - Social history:: Smoking status: Patient reports the use of cigarette tobacco products, smokes one-half pack cigarettes per day. - Family history:: not pertinent. Screenin:03 Abuse screen: Denies threats or abuse. Denies injuries from another. Nutritional iw screening: No deficits noted. Tuberculosis screening: No symptoms or risk factors identified. Fall Risk None identified. Assessment: 18:02 General: Appears in no apparent distress. Behavior is calm, cooperative. Pain: iw Complains of pain in right cheek and right jaw. Neuro: Level of Consciousness is awake, alert, obeys commands, Oriented to person, place, time, situation, Moves all extremities. Full function. Cardiovascular: Patient's skin is warm and dry. Respiratory: Respiratory effort is even, unlabored, Respiratory pattern is regular, symmetrical. EENT: Reports pain in right cheek and right jaw. Musculoskeletal: Range of motion: intact in all extremities. Vital Signs: 17:39 BP 141 / 78; Pulse 73; Resp 16 S; Temp 97.3(TE); Pulse Ox 96% on R/A; Weight 58.97 kg ca1 (R); Height 5 ft. 5 in. (165.10 cm) (R); Pain 7/10; 17:39 Body Mass Index 21.63 (58.97 kg, 165.10 cm) ca1 ED Course: 17:33 Patient arrived in ED. as 17:34 Max Cheek MD is Attending Physician. fernando 17:40 Triage completed. ca1 17:41 Arm band placed on right wrist. ca1 17:54 Evangelina Washington, RN is Primary Nurse. iw 18:02 Patient has correct armband on for positive identification. iw 18:16 Fortunato Balderas DDS is Referral Physician. fernando 18:26 No provider procedures requiring assistance completed. Patient did not have IV access iw during this emergency room visit. Administered Medications: 18:18 Drug: [place] 10 mg-325 mg 1 tabs Route: PO; iw 18:20 Follow up: Response: No adverse reaction iw 18:18 Drug: Clindamycin 300 mg Route: PO; iw 18:20 Follow up: Response: No adverse reaction iw Outcome: 18:17 Discharge ordered by . fernando 18:26 Discharged to home ambulatory, with family. iw 18:26 Condition: good 18:26 Discharge instructions given to patient, family, Instructed on discharge instructions, follow up and referral plans. medication usage, Demonstrated understanding of instructions, follow-up care, medications, Prescriptions given X 2. 18:27 Patient left the ED. iw Signatures: Max Cheek MD MD cha Martinez, Amelia as Evangelina Washington, RN TNANA iw Marine Sylvester RN RN ca1
[2020-04-17] MEDS ORDERED: HYDROCODONE/APAP 10/325 TAB ONE (18:30)
[2020-04-17 19:07] VITALS: BP 141/78; TEMP 97.3; O2SAT 96
== END 2020-04-17 18:27 | disposition home or self-care (01) ==
LOC: ER 17:31
DX: K02.7 Dental root caries (principal); F31.9 Bipolar disorder, unspecified; F17.210 Nicotine dependence, cigarettes, uncomplicated
CPT/HCPCS: 99283

== ENCOUNTER 2020-08-07 17:10 | Emergency (ER) | payer OTHER ==
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
[2020-08-07 19:22] VITALS: BP 113/75; TEMP 98.8; O2SAT 100
[2020-08-07] MEDS ORDERED: IBUPROFEN 200 MG TAB PO ONE (19:27)
[2020-08-07] MEDS ORDERED: CYCLOBENZAPRINE 10 MG TAB ONE (19:27)
--- OUTSIDE RECORDS SUMMARY | 2020-08-07 20:22 | XMS REPORT | Clinical Summary ---
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
--- OUTSIDE RECORDS SUMMARY | 2020-08-07 20:22 | XMS REPORT | Continuity of Care Document ---
:1985 Author Organization [facility] t Address [address] [place] [address] Care Team Providers Name Role Phone Asked, Pcp Primary Care Physician Unavailable Terri Mendoza Attending Clinician Payers Payer Name Policy Type Policy Effective Date Expiration Date Sour ce Number MEDICAREMEDICARE PART [id number] 2016 Natalio shirin Murray AND 00:00:00 [place] [id number] [place] Problems Condition Condition Condition Status Onset Resolution Last Treating Co mments Source Name Details Category Date Date Treatment Clinician Date Drug-induc Drug-induc Disease Active [facility] ed ed 3-16 Methodi intensive intensive 00:00: care care 00 psychosis psychosis Allergies, Adverse Reactions, Alerts This patient has no known allergies or adverse reactions. Family History Family Member Diagnosis Comments Start Date Stop Date Source Natural father Bipolar disorder [place] Yazdanism Natural mother Alcohol abuse [place] [employer] Social History Social Habit Start Date Stop Date Quantity Comments Source Sex Assigned At [place] Yazdanism History of tobacco Cigarette Smoker [place] use Yazdanism Cigarettes smoked 2016-09-15 2016-09-15 [place] current (pack per 00:00:00 00:00:[address] ) - Reported Cigarette 2016-09-15 2016-09-15 [place] pack-years 00:00:00 00:00:00 Yazdanism Alcohol intake 2016-09-15 2016-09-15 Current drinker [place] on 00:00:00 00:00:00 of alcohol Yazdanism (finding) Smoking Status Start Date Stop Date Source Current every day smoker 2016-09-15 00:00:00 Marco Antonio lopez Yazdanism Medications This patient has no known medications. Procedures This patient has no known procedures. Encounters Start End Encounter Admission Attending Care Care Encounter Source Date/Time Date/Time Type Type Clinicians Facility Department ID 2019-02-17 2019-02-18 Emergency [facility] [id number] 22:23:41 01:31:00 Edenilson Bergman [id number] [place] [id number] [place] [id number] Results This patient has no known results.
== END 2020-08-07 19:17 | disposition home or self-care (01) ==
LOC: ER 17:10
DX: S02.2XXA Fracture of nasal bones, initial encounter for closed fracture (principal); S00.31XA Abrasion of nose, initial encounter; S00.412A Abrasion of left ear, initial encounter; V23.4XXA Motorcycle driver injured in collision with car, pick-up truck or van in traffic accident, initial encounter; F20.9 Schizophrenia, unspecified
CPT/HCPCS: 70450; 70486; 72125; 76377; 99284

== ENCOUNTER 2020-08-10 19:12 | Emergency (ER) | payer OTHER ==
--- NOTE | 2020-08-10 20:52 | EDPHYS ---
Physician Documentation [facility] Name: Osvaldo Crowe Age: 35 yrs Sex: Male : 1985 Arrival Date: 08/10/2020 Time: 19:12 Bed External Waiting Private MD: ED Physician Mukesh Vora HPI: 08/10 20:35 This 35 yrs old Male presents to ER via EMS with complaints of Suicidal mh7 Ideation. 20:35 The patient presents to the emergency department with paranoia, a history of substance mh7 abuse, Type: methamphetamines, the amount of abuse is unknown, for years, suicide ideation, but the patient has no formulated plan. Onset: The symptoms/episode began/occurred yesterday. Past psychiatric history: Prior diagnosis: addiction history, bipolar disorder, depression, schizophrenia, Psychiatric medications include: Primary psychiatric physician: the patient does not have a primary psychiatric physician, the patient has not had a prior suicide gesture. 20:36 Past psychiatric history: the patient has a previous inpatient psychiatric history, mh7 last year, at unsure, the patient's last psychiatric treatment was last year. Associated signs and symptoms: Pertinent positives; paranoia, substance abuse, suicide ideation, Pertinent negatives: abdominal pain, anxiety, chest pain, chills, delusions, fever, hallucinations, headache, homicidal ideation, nausea, night sweats, palpitations, shortness of breath, tremor, vomiting. Severity of symptoms: At their worst the symptoms were mild today, in the emergency department the symptoms have resolved and did so just prior to arrival. The patient has experienced similar episodes in the past, multiple times. [facility] due to wanting to get psychiatric medication refill. He states he feels that people are out to get him. He has had some depression and has had some thoughts of hurting himself when he was arrested but does not feel suicidal currently. He admits to punching a wall out of anger while at [facility] and injured his right middle knuckle. He denies any homicidal ideation, auditory or visual hallucinations. He admits to using methamphetamine, last time was yesterday.. Historical: - Allergies: 19:12 No Known Allergies; jb4 - Home Meds: 19:12 None [Active]; jb4 - PMHx: 19:12 Anxiety; Bipolar disorder; Depression; Panic Attacks; Schizophrenia; Seizures; jb4 - PSHx: 19:12 open heart surgery; jb4 - Immunization history:: Adult Immunizations up to date, Last tetanus immunization: up to date. - Social history:: Smoking status: Patient reports the use of cigarette tobacco products, smokes one pack cigarettes per day. Patient uses alcohol, occasionally. street drugs, Methamphetamine (Meth). ROS: 20:36 Constitutional: Negative for fever, chills, and weight loss, Eyes: Negative for injury, mh7 pain, redness, and discharge, ENT: Negative for injury, pain, and discharge, Neck: Negative for injury, pain, and swelling, Cardiovascular: Negative for chest pain, palpitations, and edema, Respiratory: Negative for shortness of breath, cough, wheezing, and pleuritic chest pain, Abdomen/GI: Negative for abdominal pain, nausea, vomiting, diarrhea, and constipation, Back: Negative for injury and pain, : Negative for injury, bleeding, discharge, and swelling, Neuro: Negative for headache, weakness, numbness, tingling, and seizure, Allergy/Immunology: Negative for hives, rash, and allergies, Endocrine: Negative for neck swelling, polydipsia, polyuria, polyphagia, and marked weight changes, Hematologic/Lymphatic: Negative for swollen nodes, abnormal bleeding, and unusual bruising. Exam: 20:36 Constitutional: This is a well developed, well nourished patient who is awake, alert, mh7 and in no acute distress. Head/Face: Normocephalic, atraumatic. Eyes: Pupils equal round and reactive to light, extra-ocular motions intact. Lids and lashes normal. Conjunctiva and sclera are non-icteric and not injected. Cornea within normal limits. Periorbital areas with no swelling, redness, or edema. Neck: Trachea midline, no thyromegaly or masses palpated, and no cervical lymphadenopathy. Supple, full range of motion without nuchal rigidity, or vertebral point tenderness. No Meningismus. Chest/axilla: Normal chest wall appearance and motion. Nontender with no deformity. No lesions are appreciated. Cardiovascular: Regular rate and rhythm with a normal S1 and S2. No gallops, murmurs, or rubs. Normal PMI, no JVD. No pulse deficits. Respiratory: Lungs have equal breath sounds bilaterally, clear to auscultation and percussion. No rales, rhonchi or wheezes noted. No increased work of breathing, no retractions or nasal flaring. Abdomen/GI: Soft, non-tender, with normal bowel sounds. No distension or tympany. No guarding or rebound. No evidence of tenderness throughout. Back: No spinal tenderness. No costovertebral tenderness. Full range of motion. 20:36 Neuro: Awake and alert, GCS 15, oriented to person, place, time, and situation. Cranial nerves II-XII grossly intact. Motor strength 5/5 in all extremities. Sensory grossly intact. Cerebellar exam normal. Normal gait. 20:36 Musculoskeletal/extremity: Extremities: noted in the right hand middle MCP joint: abrasion, contusion, pain, swelling, tenderness, ROM: intact in all extremities, Circulation is intact in all extremities. Sensation intact. Compartment Syndrome exam of affected extremity: is normal. no numbness, no tingling, no sensation deficit, no palor, no weak pulses, Joints: the MCP of right middle finger displays pain at rest, painful range of motion, swelling, tenderness, Weight bearing: able to fully bear weight, without difficulty, Tendon exam: specific tendon testing normal through active and passive range of motion 20:36 Skin: injury, abrasion(s), small abrasion noted, of the right hand MCP joint, contusion(s), that are superficial, of the Right hand MCP joint. 20:36 Psych: Behavior/mood is cooperative, Affect is calm, Oriented to person, place, time, Patient has no thoughts/intents to harm self or others. Judgement / Insight is normal. Memory is normal. Delusions/hallucinations States that he does not really believe people are out to get him but feels that way sometimes. Denies any suicidal or homicidal ideation. Has no plan for suicidal action.. Vital Signs: 19:12 BP 123 / 86; Pulse 82; Resp 16; Temp 99.5; Pulse Ox 98% on R/A; Weight 58.97 kg (R); jb4 Height 5 ft. 5 in. (165.10 cm); Pain 0/10; 19:12 Body Mass Index 21.63 (58.97 kg, 165.10 cm) jb4 MDM: 20:36 Differential diagnosis: drug withdrawal. acute psychotic break, depression, psychosis [facility] secondary to non-compliance. Data reviewed: vital signs, nurses notes, EMS record. Data interpreted: Pulse oximetry: on room air is 98 %. Interpretation: normal. 20:52 Patient medically screened. [facility] 20:52 Differential diagnosis: right hand fracture, hand contusion. [facility] 20:53 ED course: Informed by nursing staff that patient refused all care and left against [facility] medical advice.. 08/10 19:26 Order name: EKG; Complete Time: 19:27 [facility] 08/10 19:26 Order name: EKG - Nurse/Tech [facility] 08/10 19:26 Order name: IV Saline Lock [facility] 08/10 19:26 Order name: Labs collected and sent [facility] 08/10 19:26 Order name: Urine Dipstick-Ancillary (obtain specimen) [facility] Administered Medications: No medications were administered Disposition: 08/10/20 20:52 Patient has left against medical advice. Impression: Schizophrenia, unspecified, Depression, Methamphetamine Abuse, Right Hand Injury. - Patients states they are going to Home. - Condition is Stable. - Discharge Instructions: Schizophrenia, Stimulant Use Disorder-Methamphetamines, Major Depressive Disorder, [id number], Hand Pain. Follow up: Private Physician; When: 1 - 2 days; Reason: Worsening of condition, Recheck today's complaints, Continuance of care, Re-evaluation by your physician. Follow up: Wai Krishnan MD; When: 1 - 2 days; Reason: Worsening of condition, Recheck today's complaints. Follow up: Ramon Montes MD; When: 1 - 2 days; Reason: Worsening of condition, Recheck today's complaints. - Problem is an ongoing problem. - Symptoms have improved. Signatures: Dispatcher [employer] EDMA Obie Kraft RN RN jb4 Mukesh Vora MD MD 7 Corrections: (The following items were deleted from the chart) 19:48 19:27 Hand Left 3 View+RAD.RAD.BRZ ordered. [facility] 21:11 20:52 08/10/2020 20:52 Patients has left against medical advice. Impression: jb4 Schizophrenia, unspecified; Depression; Methamphetamine Abuse; Right Hand Injury. Patient states they are going to Home. Condition is Stable. Follow up: Private Physician; When: 1 - 2 days; Reason: Worsening of condition, Recheck today's complaints, Continuance of care, Re-evaluation by your physician. Follow up: Wai Krishnan; When: 1 - 2 days; Reason: Worsening of condition, Recheck today's complaints. Follow up: Ramon Montes; When: 1 - 2 days; Reason: Worsening of condition, Recheck today's complaints. Problem is an ongoing problem. Symptoms have improved. 7
--- NOTE | 2020-08-10 20:52 | ER ---
Nurse's Notes [facility] Name: Osvaldo Crowe Age: 35 yrs Sex: Male : 1985 Arrival Date: 08/10/2020 Time: 19:12 Bed External Waiting Private MD: Diagnosis: Schizophrenia, unspecified;Depression;Methamphetamine Abuse;Right Hand Injury Presentation: 08/10 19:12 Chief complaint: Patient states: I was having suicidal thoughts when I was going to [facility] senior living but I do not want to hurt myself currently. I do not want to be admitted I just want my meds refilled. I hurt my hand because I punched the wall when I got angry about going to senior living. EMS states: He was recently released from senior living. Reports SI and was punching the wall and injured his right hand. 19:12 Coronavirus screen: Client denies travel out of the [place] in the last 14 days. At this [facility] time, the client does not indicate any symptoms associated with coronavirus-19. Ebola Screen: No symptoms or risks identified at this time. Initial Sepsis Screen: Does the patient meet any 2 criteria? No. Patient's initial sepsis screen is negative. Does the patient have a suspected source of infection? No. Patient's initial sepsis screen is negative. Risk Assessment: Do you want to hurt yourself or someone else? Patient reports no desire to harm self or others. Onset of symptoms was August 10, 2020. Transition of care: patient was not received from another setting of care. 19:12 Method Of Arrival: EMS: [facility] 19:12 Acuity: LUCERO 3 jb4 Historical: - Allergies: 19:12 No Known Allergies; jb4 - Home Meds: 19:12 None [Active]; jb4 - PMHx: 19:12 Anxiety; Bipolar disorder; Depression; Panic Attacks; Schizophrenia; Seizures; jb4 - PSHx: 19:12 open heart surgery; jb4 - Immunization history:: Adult Immunizations up to date, Last tetanus immunization: up to date. - Social history:: Smoking status: Patient reports the use of cigarette tobacco products, smokes one pack cigarettes per day. Patient uses alcohol, occasionally. street drugs, Methamphetamine (Meth). Screenin:35 Abuse screen: Denies threats or abuse. Denies injuries from another. Nutritional sf screening: No deficits noted. Tuberculosis screening: No symptoms or risk factors identified. Never had TB. Possible symptoms: None Risk factors: None. Fall Risk None identified. No fall in past 12 months (0 pts). No secondary diagnosis (0 pts). No IV (0 pts). Ambulatory Aid- None/Bed Rest/Nurse Assist (0 pts). Gait- Normal/Bed Rest/Wheelchair (0 pts) Mental Status- Oriented to own ability (0 pts). Total Person Fall Scale indicates No Risk (0-24 pts). Assessment: 19:35 General: Appears comfortable, unkempt, Behavior is calm, cooperative, Patient denies sf SI/HI. Does not want to hurt himself or others. No plan to hurt himself or others. Pain: Denies pain. Neuro: No deficits noted. Level of Consciousness is awake, alert, obeys commands, Oriented to person, place, time, situation. Cardiovascular: No deficits noted. Patient's skin is warm and dry. Respiratory: No deficits noted. Airway is patent Respiratory effort is even, unlabored, Respiratory pattern is regular, symmetrical. 19:45 Reassessment: PT continues to deny SI or HI. Pt denies wanting to stay in the hospital. jb4 Verbalized desire to leave. Informed PT of the need for an xray and other test to check his injured hand, and that the injury could worsen. Pt verbalized understanding information and states " that's okay, I am fine. I just want to go." PT was given information about [facility] mental health resources. AMA formed signed, pt left with steady gait. Vital Signs: 19:12 BP 123 / 86; Pulse 82; Resp 16; Temp 99.5; Pulse Ox 98% on R/A; Weight 58.97 kg (R); jb4 Height 5 ft. 5 in. (165.10 cm); Pain 0/10; 19:12 Body Mass Index 21.63 (58.97 kg, 165.10 cm) jb4 ED Course: 19:12 Patient arrived in ED. cl3 19:12 Arm band placed on right wrist. jb4 19:15 Mukesh Vora MD is Attending Physician. mh7 19:22 Almeida, Osmin, RN is Primary Nurse. sf 19:34 Triage completed. jb4 19:35 Patient has correct armband on for positive identification. Bed in low position. Call sf light in reach. Side rails up X2. Patient refused. Door closed. Noise minimized. Verbal reassurance given. 19:49 No provider procedures requiring assistance completed. Patient did not have IV access sf during this emergency room visit. 20:50 Wai Krishnan MD is Referral Physician. [facility] 20:50 Ramon Montes MD is Referral Physician. 7 Administered Medications: No medications were administered Outcome: 19:45 AMA AMA form signed jb4 19:45 Condition: stable 19:45 Discharge instructions given to patient, Instructed on discharge instructions, follow up and referral plans. Demonstrated understanding of instructions, follow-up care. 21:11 Patient left the ED. jb4 Signatures: Obie Kraft RN RN jb4 Leonardo Ray cl3 Mukesh Vora MD MD 7 Osmin Almeida RN RN sf Corrections: (The following items were deleted from the chart) 19:51 19:35 General: Appears comfortable, unkempt, Behavior is calm, cooperative, sf sf 19:52 19:12 Chief complaint: Patient states: I was having suicidal thoughts when I was going [facility] to senior living but I do not want to hurt myself currently. I do not want to be admitted I just want my meds refilled. EMS states: He was recently released from senior living. Reports SI and was punching the wall and injured his right hand. jb4
[2020-08-10 21:15] VITALS: BP 123/86; TEMP 99.5; O2SAT 98
== END 2020-08-10 21:11 | disposition left against medical advice (07) ==
LOC: ER 19:12
DX: F15.10 Other stimulant abuse, uncomplicated (principal); F32.9 Major depressive disorder, single episode, unspecified; F20.9 Schizophrenia, unspecified; S69.91XA Unspecified injury of right wrist, hand and finger(s), initial encounter; W22.8XXA Striking against or struck by other objects, initial encounter; Y93.9 Activity, unspecified; Y92.149 Unspecified place in prison as the place of occurrence of the external cause
CPT/HCPCS: 99283

== ENCOUNTER 2020-09-10 03:56 | Emergency (ER) | payer OTHER ==
--- OUTSIDE RECORDS SUMMARY | 2020-09-10 03:58 | XMS REPORT | Continuity of Care Document ---
:1985 Author Organization [facility] t Address [address] [place] [address] Care Team Providers Name Role Phone Asked, Pcp Primary Care Physician Unavailable Terri Mendoza Attending Clinician Problems Condition Condition Condition Status Onset Resolution Last Treating Co mments Source Name Details Category Date Date Treatment Clinician Date Drug-induc Drug-induc Disease Active [facility] ed ed 3-16 [facility] intensive intensive 00:00: [facility] care 00 psychosis psychosis Allergies, Adverse Reactions, Alerts This patient has no known allergies or adverse reactions. Family History Family Member Diagnosis Comments Start Date Stop Date Source Natural father Bipolar disorder [place] Natural mother Alcohol abuse [place] [employer] Social History Social Habit Start Date Stop Date Quantity Comments Source History of tobacco Cigarette Smoker [place] use Shinto Cigarettes smoked 2016-09-15 2016-09-15 [place] current (pack per 00:00:00 00:00:[address] ) - Reported Cigarette 2016-09-15 2016-09-15 [place] pack-years 00:00:00 00:00:00 Shinto Alcohol intake 2016-09-15 2016-09-15 Current drinker [place] 00:00:00 00:00:00 of alcohol Shinto (finding) Sex [birth year] At [birth year] [place] 00:00:00 00:00:00 Shinto Smoking Status Start Date Stop Date Source Current every day smoker 2016-09-15 00:00:00 Marco Antonio lopez Shinto Medications This patient has no known medications. Procedures This patient has no known procedures. Encounters Start End Encounter Admission Attending Care Care Encounter Source Date/Time Date/Time Type Type Clinicians Facility Department ID 2019-02-17 2019-02-18 Emergency D[facility] [id number] 22:23:41 01:31:00 Edenilson Bergman [id number] [place] [id number] [place] [id number] Results This patient has no known results.
[2020-09-10 09:26] LABS: Absolute Lymphocytes (CBC) 1.9 K/uL (0.7-4.9); Basophils % 0.7 % (0-1.3); Hematocrit 41.5 % (39.6-49.0); Lymphocytes % 31.5 % (15.3-44.8); MPV 7.5 fL (7.6-11.3); RBC Red Blood Cell Count 4.81 M/uL (4.33-5.43)
[2020-09-10 09:59] LABS: ALT/SGPT 31 U/L (12-78); AST/SGOT 22 U/L (15-37); Albumin 3.4 g/dL (3.4-5.0); Alkaline Phosphatase 125 U/L (45-117); BUN Blood Urea Nitrogen 13 mg/dL (7-18); Bicarbonate 27 mmol/L (21-32); Bilirubin Direct < 0.1 mg/dL (0-0.2); Bilirubin Total 0.3 mg/dL (0.2-1.0); Glucose Level 118 mg/dL (74-106); Potassium 3.7 mmol/L (3.5-5.1); Protein, Total 6.6 g/dL (6.4-8.2); Sodium Level 140 mmol/L (136-145)
--- NOTE | 2020-09-10 13:15 | EDPHYS ---
Physician Documentation [facility] Name: Osvaldo Crowe Age: 35 yrs Sex: Male : 1985 Arrival Date: 09/10/2020 Time: 03:57 Bed 17 Private MD: ED Physician Nicola oMore HPI: 09/10 08:41 This 35 yrs old Male presents to ER via Ambulatory with complaints of kdr Paranoid. 08:41 The patient presents to the emergency department with anxiety, over unknown kdr circumstances, paranoia. Onset: The symptoms/episode began/occurred at an unknown time. Past psychiatric history: Prior diagnosis: schizophrenia, Anxiety, bipolar, etc. Associated signs and symptoms: The patient has no apparent associated signs or symptoms. Severity of symptoms: At their worst the symptoms were mild moderate just prior to arrival, in the emergency department the symptoms are unchanged. The patient has experienced similar episodes in the past, chronically. The patient has not recently seen a physician. Has been off of his psych meds for about eight months. States he wants to go back to [facility] to get his meds. He is currently homeless and is unable to stay at any of the local shelters. Historical: - Allergies: 04:52 No Known Allergies; sg - PMHx: 04:52 Anxiety; Bipolar disorder; Depression; Panic Attacks; Schizophrenia; Seizures; sg - PSHx: 04:52 open heart surgery; sg - Immunization history:: Adult Immunizations up to date. - Social history:: Smoking status: Patient denies any tobacco usage or history of. ROS: 08:41 Constitutional: Negative for fever, chills, and weight loss, Eyes: Negative for injury, kdr pain, redness, and discharge, ENT: Negative for injury, pain, and discharge, Neck: Negative for injury, pain, and swelling, Cardiovascular: Negative for chest pain, palpitations, and edema, Respiratory: Negative for shortness of breath, cough, wheezing, and pleuritic chest pain, Abdomen/GI: Negative for abdominal pain, nausea, vomiting, diarrhea, and constipation, Back: Negative for injury and pain, : Negative for injury, bleeding, discharge, and swelling, MS/Extremity: Negative for injury and deformity, Skin: Negative for injury, rash, and discoloration, Neuro: Negative for headache, weakness, numbness, tingling, and seizure activity. Allergy/Immunology: Negative for hives, rash, and allergies, Endocrine: Negative for neck swelling, polydipsia, polyuria, polyphagia, and marked weight changes, Hematologic/Lymphatic: Negative for swollen nodes, abnormal bleeding, and unusual bruising. 08:41 Psych: Positive for anxiety, suicidal ideation, Paranoia - feels that people are following him, Negative for depression, drug dependence, alcohol dependence, auditory hallucinations, visual hallucinations, homicidal ideation, suicide gesture, Has attempted to hang himself about five years ago. Exam: 08:41 Constitutional: This is a well developed, well nourished patient who is awake, alert, kdr and in no acute distress. Head/Face: Normocephalic, atraumatic. Eyes: Pupils equal round and reactive to light, extra-ocular motions intact. Lids and lashes normal. Conjunctiva and sclera are non-icteric and not injected. Cornea within normal limits. Periorbital areas with no swelling, redness, or edema. Neck: Trachea midline, no thyromegaly or masses palpated, and no cervical lymphadenopathy. Supple, full range of motion without nuchal rigidity, or vertebral point tenderness. No Meningismus. Chest/axilla: Normal chest wall appearance and motion. Nontender with no deformity. No lesions are appreciated. Cardiovascular: Regular rate and rhythm with a normal S1 and S2. No gallops, murmurs, or rubs. Normal PMI, no JVD. No pulse deficits. Respiratory: Lungs have equal breath sounds bilaterally, clear to auscultation and percussion. No rales, rhonchi or wheezes noted. No increased work of breathing, no retractions or nasal flaring. Abdomen/GI: Soft, non-tender, with normal bowel sounds. No distension or tympany. No guarding or rebound. No evidence of tenderness throughout. Back: No spinal tenderness. No costovertebral tenderness. Full range of motion. Skin: Warm, dry with normal turgor. Normal color with no rashes, no lesions, and no evidence of cellulitis. MS/ Extremity: Pulses equal, no cyanosis. Neurovascular intact. Full, normal range of motion. Neuro: Awake and alert, GCS 15, oriented to person, place, time, and situation. Cranial nerves II-XII grossly intact. Motor strength 5/5 in all extremities. Sensory grossly intact. Cerebellar exam normal. Normal gait. Psych: Awake, alert, with orientation to person, place and time. Behavior, mood, and affect are within normal limits. Vital Signs: 04:52 sg 13:15 BP 111 / 77; Pulse 61; Resp 17 S; Temp 97.9(TE); Pulse Ox 99% on R/A; Pain 0/10; jd3 20:00 BP 125 / 80; Pulse 65; Resp 16; Pulse Ox 98% ; rr5 04:52 pt refused VS at this time for triage sg MDM: 13:14 Patient medically screened. kdr 13:14 Data reviewed: vital signs, nurses notes, lab test result(s). Counseling: I had a kdr detailed discussion with the patient and/or guardian regarding: the historical points, exam findings, and any diagnostic results supporting the discharge/admit diagnosis, lab results, the need to transfer to another facility. 13:14 ED course: [facility] Er evaluated and recommended inpatient treatment. [facility] 09/10 08:39 Order name: Acetaminophen [facility] 09/10 08:39 Order name: Basic Metabolic Panel [facility] 09/10 08:39 Order name: CBC with Diff [facility] 09/10 08:39 Order name: ETOH Level [facility] 09/10 08:39 Order name: Hepatic Function [facility] 09/10 08:39 Order name: Salicylate; Complete Time: 18:10 kdr 09/10 08:39 Order name: Acetaminophen Level; Complete Time: 10:10 EDMS 09/10 08:39 Order name: Basic Metabolic Panel; Complete Time: 10:10 EDMS 09/10 08:39 Order name: CBC with Automated Diff; Complete Time: 10:10 EDMS 09/10 08:39 Order name: Alcohol Serum/Plasma; Complete Time: 10:10 EDMS 09/10 08:39 Order name: Liver (Hepatic) Function; Complete Time: 10:10 EDMS 09/10 11:29 Order name: SARS-COV-2 RT PCR; Complete Time: 18:10 EDMS 09/10 08:39 Order name: IV Saline Lock; Complete Time: 09:16 kdr 09/10 08:39 Order name: Labs collected and sent; Complete Time: 09:16 kdr 09/10 13:18 Order name: Diet Regular; Complete Time: 13:18 jd3 Administered Medications: No medications were administered Disposition: 09/10/20 13:14 Transfer ordered to Psych Facility. Diagnosis are Paranoid schizophrenia, Anxiety disorder, unspecified, Bipolar disorder, Panic disorder [episodic paroxysmal anxiety] without agoraphobia. - Reason for transfer: Higher level of care. - Accepting physician is Dr. Jeffers. - Condition is Fair. - Problem is an acute exacerbation. - Symptoms are unchanged. Signatures: Dispatcher [employer] EDMI Osmin Tyson RN RN sg Nicola Moore MD MD kdr Carter Morrison RN RN rr5 Corrections: (The following items were deleted from the chart) 10:43 08:40 CORONAVIRUS+MR.LAB.BRZ ordered. EDMI EDMI 18:24 13:14 09/10/2020 13:14 Transfer ordered to Psych Facility. Diagnosis is Paranoid kdr schizophrenia; Anxiety disorder, unspecified; Bipolar disorder; Panic disorder [episodic paroxysmal anxiety] without agoraphobia. Reason for transfer: Higher level of care. Accepting physician is . Condition is Fair. Problem is an acute exacerbation. Symptoms are unchanged. kdr 21:40 18:24 09/10/2020 13:14 Transfer ordered to Psych Facility. Diagnosis is Paranoid rr5 schizophrenia; Anxiety disorder, unspecified; Bipolar disorder; Panic disorder [episodic paroxysmal anxiety] without agoraphobia. Reason for transfer: Higher level of care. Accepting physician is Dr. Jeffers. Condition is Fair. Problem is an acute exacerbation. Symptoms are unchanged. kdr
--- NOTE | 2020-09-10 13:15 | ER ---
Nurse's Notes [facility] Name: Osvaldo Crowe Age: 35 yrs Sex: Male : 1985 Arrival Date: 09/10/2020 Time: 03:57 Bed 17 Private MD: Diagnosis: Paranoid schizophrenia;Anxiety disorder, unspecified;Bipolar disorder;Panic disorder [episodic paroxysmal anxiety] without agoraphobia Presentation: 09/10 04:52 Acuity: LUCERO 3 sg 04:52 Chief complaint: Patient states: Been off normal medications, is feeling paranoid at this time. Denies SI/HI. Coronavirus screen: Client denies travel out of the [place] in the last 14 days. Ebola Screen: Patient negative for fever greater than or equal to 101.5 degrees Fahrenheit, and additional compatible Ebola Virus Disease symptoms Patient denies exposure to infectious person. Patient denies travel to an Ebola-affected area in the 21 days before illness onset. No symptoms or risks identified at this time. Initial Sepsis Screen: Does the patient meet any 2 criteria? No. Patient's initial sepsis screen is negative. Does the patient have a suspected source of infection? No. Patient's initial sepsis screen is negative. Risk Assessment: Do you want to hurt yourself or someone else? Patient reports no desire to harm self or others. Onset of symptoms was September 10, 2020. Care prior to arrival: None. Transition of care: patient was not received from another setting of care. 04:52 Method Of Arrival: Ambulatory sg Historical: - Allergies: 04:52 No Known Allergies; sg - PMHx: 04:52 Anxiety; Bipolar disorder; Depression; Panic Attacks; Schizophrenia; Seizures; sg - PSHx: 04:52 open heart surgery; sg - Immunization history:: Adult Immunizations up to date. - Social history:: Smoking status: Patient denies any tobacco usage or history of. Screenin:26 Abuse screen: Denies threats or abuse. Nutritional screening: No deficits noted. jd3 Tuberculosis screening: No symptoms or risk factors identified. Fall Risk IV access (20 points). Ambulatory Aid- None/Bed Rest/Nurse Assist (0 pts). Gait- Normal/Bed Rest/Wheelchair (0 pts) Mental Status- Oriented to own ability (0 pts). Total Person Fall Scale indicates No Risk (0-24 pts). Assessment: 09:23 Reassessment: pt refusing vitals at this time. General: Appears in no apparent [facility] distress. comfortable, unkempt, Behavior is cooperative, appropriate for age, anxious. Pain: Denies pain. Neuro: Level of Consciousness is awake, alert, obeys commands, Oriented to person, place, time, situation, Reports feeling paranoid and not right in his head. reports being paranoid around or scared of police. verbal reassurance given to pt.. Denies weakness dizziness, numbness , SI or HI behavior. Cardiovascular: Denies chest pain, Capillary refill < 3 seconds Patient's skin is warm and dry. Respiratory: Airway is patent Respiratory effort is even, unlabored, Respiratory pattern is regular, symmetrical, Denies cough, shortness of breath. GI: No signs and/or symptoms were reported involving the gastrointestinal system. Patient currently denies diarrhea, nausea, vomiting. : No signs and/or symptoms were reported regarding the genitourinary system. EENT: No signs and/or symptoms were reported regarding the EENT system. Derm: Skin is intact, Skin is dry, Skin is normal, Skin temperature is warm. Musculoskeletal: Circulation, motion, and sensation intact. Range of motion: intact in all extremities. 10:18 Reassessment: No changes from previously documented assessment. Patient and/or family jd3 updated on plan of care and expected duration. Pain level reassessed. Patient is alert, oriented x 3, equal unlabored respirations, skin warm/dry/pink. pt resting with eyes closed, even and unlabored respirations. pt still refusing vital signs, provider notified. 10:56 Reassessment: awaiting consultation with [facility]. jd3 11:22 Reassessment: Patient appears in no apparent distress at this time. Patient and/or jd3 family updated on plan of care and expected duration. Pain level reassessed. Patient is alert, oriented x 3, equal unlabored respirations, skin warm/dry/pink. pt on ipad with [facility] development representative. 12:22 Reassessment: Patient appears in no apparent distress at this time. No changes from j previously documented assessment. Patient and/or family updated on plan of care and expected duration. Pain level reassessed. Patient is alert, oriented x 3, equal unlabored respirations, skin warm/dry/pink. 13:15 Reassessment: Patient appears in no apparent distress at this time. Patient and/or [facility] family updated on plan of care and expected duration. Pain level reassessed. Patient is alert, oriented x 3, equal unlabored respirations, skin warm/dry/pink. pt agreed to vital signs after explaining that they are needed for transfer. 14:05 Reassessment: Patient appears in no apparent distress at this time. Patient and/or [facility] family updated on plan of care and expected duration. Pain level reassessed. Patient is alert, oriented x 3, equal unlabored respirations, skin warm/dry/pink. pt resting in bed awaiting transfer. 15:03 Reassessment: Patient appears in no apparent distress at this time. No changes from [facility] previously documented assessment. Patient and/or family updated on plan of care and expected duration. Pain level reassessed. Patient is alert, oriented x 3, equal unlabored respirations, skin warm/dry/pink. 16:00 Reassessment: Patient appears in no apparent distress at this time. No changes from [facility] previously documented assessment. Patient and/or family updated on plan of care and expected duration. Pain level reassessed. Patient is alert, oriented x 3, equal unlabored respirations, skin warm/dry/pink. 17:01 Reassessment: Patient appears in no apparent distress at this time. No changes from [facility] previously documented assessment. Patient and/or family updated on plan of care and expected duration. Pain level reassessed. Patient is alert, oriented x 3, equal unlabored respirations, skin warm/dry/pink. resting in bed. 17:40 Reassessment: Reassessment: nurse to nurse given to Kriss CISSE at [address] 18:20 Reassessment: Patient appears in no apparent distress at this time. Patient and/or [facility] family updated on plan of care and expected duration. Pain level reassessed. Patient is alert, oriented x 3, equal unlabored respirations, skin warm/dry/pink. urine sample requested from pt. pt given urinal and water to hydrate. 18:59 Reassessment: Patient and/or family updated on plan of care and expected duration. Pain [facility] level reassessed. Patient is alert, oriented x 3, equal unlabored respirations, skin warm/dry/pink. pt signed transfer sheet. 19:10 General: Appears in no apparent distress. comfortable. Neuro: Level of Consciousness is rr5 awake, alert, obeys commands, Oriented to person, place, time, situation. Cardiovascular: Capillary refill < 3 seconds Patient's skin is warm and dry. Respiratory: Airway is patent Respiratory effort is even, unlabored, Respiratory pattern is regular, symmetrical. GI: No signs and/or symptoms were reported involving the gastrointestinal system. : No signs and/or symptoms were reported regarding the genitourinary system. EENT: No signs and/or symptoms were reported regarding the EENT system. Derm: Skin is intact, is healthy with good turgor, Skin temperature is warm. Musculoskeletal: Capillary refill < 3 seconds. 20:10 Reassessment: Patient appears in no apparent distress at this time. Patient is alert, rr5 oriented x 3, equal unlabored respirations, skin warm/dry/pink. awaiting for EMS trasnport. 21:00 Reassessment: Patient appears in no apparent distress at this time. Patient is alert, rr5 oriented x 3, equal unlabored respirations, skin warm/dry/pink. report given to [facility] awake alert vital signs taken and recorded. Vital Signs: 04:52 sg 13:15 BP 111 / 77; Pulse 61; Resp 17 S; Temp 97.9(TE); Pulse Ox 99% on R/A; Pain 0/10; jd3 20:00 BP 125 / 80; Pulse 65; Resp 16; Pulse Ox 98% ; rr5 04:52 pt refused VS at this time for triage ED Course: 03:57 Patient arrived in ED. ag3 04:52 Triage completed. sg 04:52 Arm band placed on. sg 08:25 Nicola Moore MD is Attending Physician. kdr 09:00 Shoaib Castano RN is Primary Nurse. jd3 09:16 Inserted saline lock: 20 gauge in right wrist, using aseptic technique. Blood collected.jd3 09:26 Patient has correct armband on for positive identification. Bed in low position. Call jd3 light in reach. Side rails up X 1. Verbal reassurance given. 10:30 contacted [facility] to a screener evaluate pt. bd 13:08 Hepatic Function Sent. sv 13:08 ETOH Level Sent. sv 13:08 CBC with Diff Sent. sv 13:08 Basic Metabolic Panel Sent. sv 13:08 Acetaminophen Sent. sv 14:36 faxed chart to [facility]. bd 16:01 confirmed with [facility] that fax was received. bd 16:[address] [facility]. bd 17:23 faxed chart to [facility]. bd 20:56 No provider procedures requiring assistance completed. IV discontinued, intact, rr5 bleeding controlled, No redness/swelling at site. Pressure dressing applied. Administered Medications: No medications were administered Outcome: 13:14 ER care complete, transfer ordered by MD. kdr 20:56 Transferred by ground EMS to other acute care facility: mental facility. Transfer form rr5 completed. 20:56 Condition: stable 20:56 Instructed on the need for transfer. 21:40 Patient left the ED. rr5 Signatures: Aaliyah Preston Stephanie, RN Osmin Ferrari RN Nicola Maria MD MD kdr Davies, Jonathon, RN RN jd3 Gomez, Alice ag3 Roque, Raymond RN RN rr5 Corrections: (The following items were deleted from the chart) 11:22 10:56 Reassessment: [place] 12:22 12:22 Reassessment: Patient appears in no apparent distress at this time. Patient jd3 and/or family updated on plan of care and expected duration. Pain level reassessed. Patient is alert, oriented x 3, equal unlabored respirations, skin warm/dry/pink. [facility] 13:17 13:15 BP 111 / 77; Pulse 61bpm; Resp 17bpm; Spontaneous; Pulse Ox 99% RA; [facility] 17:42 17:40 Reassessment: kristina acevedo 19:06 17:40 Reassessment: nurse to nurse given to Kriss CISSE at [facility] gely Reassessment: nurse to nurse given to Kriss CISSE at [place] [id number]
== END 2020-09-10 21:40 ==
LOC: ER 03:56
DX: F41.0 Panic disorder [episodic paroxysmal anxiety] (principal); F31.9 Bipolar disorder, unspecified; Z20.822 Contact with and (suspected) exposure to COVID-19
CPT/HCPCS: 36415; 80048; 80076; 80320; 80329; 85025; 99285; U0003

== ENCOUNTER 2021-07-15 08:00 | Emergency (ER) | payer OTHER ==
--- OUTSIDE RECORDS SUMMARY | 2021-07-15 08:04 | XMS REPORT | Continuity of Care Document ---
:1985 Author Organization [facility] t Address 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 00:00: Hosp re[facility] care care 00 l psychosis psychosis Acute Acute Disease Active 2015-06 [facility] respirator respirator 0-28 [place] Major Major Disease Active Overview: 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, disorder, 00:00: Diagnosis [place] recurrent recurrent 00 Term Medi ash episode, episode, [employer]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 Utility Other and Other and Disease Active Uni vers unspecifie unspecifie 03-04 it y of d alcohol d alcohol 00[place] dependence dependence 00 Me dical [place] Allergies, Adverse Reactions, Alerts Allergy Allergy Status Severity Reaction(s) Onset Inactive Treating Comm ents Source Name Type Date Date Clinician Ibuprofe Propensi Active Palpitations Univers n ty to 3-15 ity of adverse 00:00: [place] reaction 00 Medical s Branch Family History Family Member Diagnosis Comments Start Date Stop Date Source Natural father Bipolar disorder Meth [facility] Natural mother Alcohol abuse [facility] Social History Social Habit Start Date Stop Date Quantity Comments Source Sex Assigned At [facility] y of [facility] History of tobacco Cigarette Smoker [facility] Alcohol intake 2016-09-15 2016-09-15 1.14 /d [facility] 00:[facility]:00 Hospital Cigarettes smoked 2016-09-15 2016-09-15 [facility] current (pack per 00:00:00 00:00:00 Hospita day) - Reported Cigarette 2016-09-15 2016-09-15 [facility] pack-years 00:00:00 00:00:00 Hospital Smoking Status Start Date Stop Date Source Unknown if ever smoked [facility] Current every day smoker 2016-09-15 00:00:[address] [facility] [place] [place] Medications Ordered Filled Start Stop Current Ordering Indication Dosage Frequency Signature Comments Components Source Medication Medication Date Date Medication? Clinician (SIG) Name Name multivitami 2015-06 Yes 1{tbl} Take 1 Un kinsey n tablet 1-01 tablet by ity of 00:00: mouth [place] 00 daily. Medical Branch acetaminoph 2015-06 Yes 650mg Take 2 Uni vers en 1-01 tablets by ity of (TYLENOL) 00:00: mouth [place] 325 mg 00 every 6 Medical tablet (six) Branch hours as needed for Pain (scale 1-3) or Pain (scale 4-6). No known No Methodi medications [facility]osp[facility] Vital Signs Vital Name Observation Time Observation Value Comments Source Systolic blood 2019-02-18 06:30:00 102 mm[Hg] Univer sity of pressure [facility] Diastolic blood 2019-02-18 06:30:00 66 mm[Hg] [facility] Heart rate 2019-02-18 06:30:00 71 /min [facility] Respiratory rate 2019-02-18 06:30:00 18 /min [facility] O[facility] saturation in 2019-02-18 06:30:00 98 /min [facility] Arterial blood by [facility] Pulse oximetry Branch Body temperature 2019-02-18 03:19:00 36.5 Melonie [facility] Body height 2019-02-18 03:19:00 165.1 cm [facility] Body weight 2019-02-18 03:19:00 59.875 kg [facility] BMI 2019-02-18 03:19:00 21.97 kg/m2 [facility] Systolic blood 2019-02-18 06:30:00 102 mm[Hg] [facility] sity of pressure [facility] Diastolic blood 2019-02-18 06:30:00 66 mm[Hg] [facility] Heart rate 2019-02-18 06:30:00 71 /min [facility] Respiratory rate 2019-02-18 06:30:00 18 /min [facility] Oxygen saturation in 2019-02-18 06:30:00 98 /min [facility] Arterial blood by [facility] Pulse oximetry [place] Body temperature 2019-02-18 03:19:00 36.5 Melonie [facility] Body height 2019-02-18 03:19:00 165.1 cm [facility] Body weight 2019-02-18 03:19:00 59.875 kg [facility] BMI 2019-02-18 03:19:00 21.97 kg/m2 [facility] Procedures Procedure Date / Time Performing Clinician Source Performed XR CHEST 1 VW 2019-02-18 03:59:16 Edenilson Granados [facility] THYROID STIMULATING 2019-02-18 03:57:00 Edenilson Granados [facility] HORMONE [facility] COMP. METABOLIC PANEL 2019-02-18 03:57:00 Edenilson Granados [facility] ([id number]) [facility] ACETAMINOPHEN 2019-02-18 03:57:00 Edenilson Granados [facility] ETHANOL 2019-02-18 03:57:00 Edenilson Granados [facility] CBC WITH DIFFERENTIAL 2019-02-18 03:57:00 Edenilosn Granados [facility] URINALYSIS 2019-02-18 03:57:00 Edenilson Granados [facility] ADC / LCC - DRUG SCREEN 2019-02-18 03:57:00 Edenilson Granados [facility] Branch EKG-12 LEAD 2019-02-18 03:31:24 Edenilson Granados [facility] Encounters Start End Encounter Admission Attending Care Care Encounter Source Date/Time Date/Time Type Type Clinicians Facility Department ID 2019-02-17 2019-02-18 Emergency CLEMENTINA Granados [id number] 22:23:41 01:31:00 Edenilson Bergman [id number] [place] [id number] [place] [id number] 2019-02-17 2019-02-18 Emergency CLEMENTINA Granados [id number] [facility] 22:23:41 01:31:00 Edenilson Bergman [id number] i ty of [place] 4[facility]7.2.686 [facility] [place] [id number] [address] Results Test Description Test Time Test Comments Results Result Comments Source THYROID STIMULATING HORMONE 2019-02-18 05:13:00 Test Item Value Reference Range Interpretation Comme nts TSH (test code = 1325218300) See_Comment [Automated message] The system which generated this result transmitted ref erence range: 0.45 - 4.70 mIU/L. T he reference range was not used to interpret this result as lucinda l/abnormal. Lab Interpretation (test code = Normal 03456-0) [facility] [id number] 04:50:15 No acute cardiopulmonary abnormality. IRamona MD., have reviewed this study and agree with the abovereport.* * * * * * * * ORIGINAL REPORT * * * * * * * *XR CHEST 1 VW HISTORY: Admission clearance COMPARISON: 04/16/2016 FINDINGS: The lungs are clear. No focal consolidation, pneumothorax, or pleuraleffusion is seen. The cardiomediastinal silhouette is normal. No acute osseous abnormality. [facility], Radiant Results Inft User - 02/17/2019 11:52 PM CDT* * * * * * * * ORIGINAL REPORT * * * * * * * *XR CHEST 1 VWHISTORY: Admission clearance COMPARISON: 04/16/2016FINDINGS:The lungs are clear. No focal consolidation, pneumothorax, or pleuraleffusion is seen.The cardiomediastinal silhouette is normal.No acute osseous abnormality.IMPRESSIONNo acute cardiopulmonary abnormality.I, Tanika Moralez MD., havereviewed this study and agree with the abovereport.[facility] Center[facility]ETAMINOPHEN2019-08-24 04:46:00 Test Item Value Reference Range Interpretation Comments ACETAMINOP (test code = <10.0 10-30 L 0612034194) DIYA (test code = DIYA) Toxic: Greater than 200 ug/mL @ 4 hour post ingestion or greater than 50 ug/mL @ 12 hour post ingestion Lab Interpretation (test Abnormal code = 67741-0) [facility]2019-08-24 04:46:00 Test Item Value Reference Range Interpretation Comments ALCOHOL (test code = <10 mg/dL 1258116945) DIYA (test code = DIYA) <10 [id number] Toxic>100 Depression of REGIONAL CRA>400 Fatalities Reported [facility] Center[facility]. METABOLIC PANEL ([id number])2019-02-18 04:43:00 Test Item Value Reference Range Interpretation Comments NA (test code = 142 mmol/L 135-145 5253591845) K (test code = 4.0 mmol/L 3.5-5 7490633899) CL (test code = 107 mmol/L 98-108 9679375070) CO2 TOTAL (test code = 24 mmol/L 23-31 0475399197) AGAP (test code = 2-16 0914862090) BUN (test code = 16 mg/dL 7-23 2159328460) GLUCOSE (test code = 105 mg/dL 70-110 3918479512) CREATININE (test code 0.74 mg/dL 0.6-1.25 = 1388601486) TOTAL BILI (test code 0.3 mg/dL 0.1-1.1 = 0256411815) CALCIUM (test code = 9.5 mg/dL 8.6-10.6 6639757189) T PROTEIN (test code = 7.0 g/dL 6.3-8.2 1218092804) ALBUMIN (test code = 4.3 g/dL 3.5-5 1748600659) ALK PHOS (test code = 97 U/L 34-122 3712747538) ALT(SGPT) (test code = 16 U/L 9-51 6243569084) AST(SGOT) (test code = 18 U/L 13-40 4954324642) eGFR Calculation mL/min/1.73m2 (Non-) (test code = 4933549560) eGFR Calculation mL/min/1.73m2 () (test code = 5462303859) DIYA (test code = DIYA) Association of Glomerular Filtration Rate (GFR) and Staging of Kidney Disease*+ ---------+ --------+ +| GFR (mL/min/1.73 m2)?| With Kidney Damage?|?Without Kidney Damage+ -------+ ------+ ---------+|?>90?|?Stage one?|? Normal?+ --------+ -------+ +|?60-89?|?St age two?|? Decreased GFR? + -+ + ---+|?30-59?|?Stage three?|? Stage three? + -+ + ---+|?15-29?|?Stage four? |? Stage four?+ ------+ -----+ --------+|?<15 (or dialysis)?|?Stage five? |? Stage five?+ ------+ -----+ --------+*Each stage assumes the associated GFR level has been in effect for at least three months.?Stages 1 to 5, with or without kidney disease, indicate chronic kidney disease.Notes: Determination of stages one and two (with eGFR >59mL/min/1.73 m2) requires estimation of kidney damage for at least three months as defined by structural or functional abnormalities of the kidney, manifested by either:Pathological abnormalities or Markers of kidney damage (including abnormalities in the composition of the blood or urine or abnormalities in imaging tests). [facility] Center[facility]IN[facility]IS2019-08-24 04:22:00 Test Item Value Reference Range Interpretation Comments APPEARANCE (test code Slightly Cloudy Clear A = 8382995485) COLOR (test code = Yellow Yellow 8853370225) PH (test code = 4.8-8.0 0927104886) SP GRAVITY (test code 1.003-1.030 = 2871768130) GLU U QUAL (test code Negative Negative = 8327223129) BLOOD (test code = Negative Negative 6436635772) KETONES (test code = Negative Negative 6132030334) PROTEIN (test code = Negative Negative 2887-8) UROBILIN (test code = 0.2 mg/dL See_Comment [Auto mated 0574214696) message] The system which generated this result transmit pao reference range : 0-1.0 mg/dL. Th e reference range was not used to interpret this result as normal/abnormal . BILIRUBIN (test code Negative Negative = 0426009545) NITRITE (test code = Negative Negative 6238304389) LEUK LYNN (test code Negative Negative = 2124636491) RBC/HPF (test code = See_Comment [Autom ated 7912383338) message] The system which generated this result transmit pao reference range : 0 - 3 HPF. The reference range was not used to interpret this result as normal/abnormal . WBC/HPF (test code = See_Comment [Autom ated 1468925914) message] The system which generated this result transmit pao reference range : 0 - 5 HPF. The reference range was not used to interpret this result as normal/abnormal . BACTERIA (test code = Few Negative A 6119427496) AMORPHOUS (test code Moderate HPF = 1581514973) Lab Interpretation Abnormal (test code = 71093-8) [facility] - DRUG SCREEN [id number] 04:21:00 Test Item Value Reference Range Interpretation Comments BENZO U (test code = Negative Negative 5762545320) VENKATESH U (test code = Negative Negative 6719586508) AMPHET (test code = Negative Negative 7562116830) THC (test code = Negative Negative 6842787782) METHADONE (test code = Negative Negative 6121810808) Meth U (test code = Negative Negative 3091336499) OPIATES (test code = Negative Negative 1799538759) Cocaine Metabolite (test Negative Negative code = 0847779554) PROPOXY (test code = Negative Negative 2317397970) Tric U (test code = Negative Negative 9028819953) PCP (test code = Negative Negative 1571806562) OXYCOD (test code = Negative Negative 7979031390) DIYA (test code = DIYA) Urine Drug Cutoff RangesBenzodiazepines : ? ? 150 ng/mLBarbiturates: ?200 ng/mLAmphetamine: ? 500 ng/mLCannabinoids: ?50?ng/mLMethadone: ? 200 ng/mLMethamphetamine: ? 500 ng/mL Opiates: ? 100 ng/mL or 2000 ng/mLCocaine: ? 150 ng/mLPropoxyphene:?30 0 ng/mLTricyclics:?300 ng/mLOxycodone:? 100 ng/mLPCP:? 25?ng/mLThe results are to be used only for medical (i.e., treatment) purposes. Unconfirmed screening results must not be used for non-medical purposes (e.g., employment testing, legal testing). Lab Interpretation (test Normal code = 41273-7) [facility] WITH [id number] 04:08:00 Test Item Value Reference Range Interpretation Comments WBC (test code = See_Comment [Automated 3625-2) message] The sy stem which generated this result transmitted reference range : 4.20 - 10.70 10*3/?L. The reference range was not used to interpret this result as normal/abnormal . RBC (test code = See_Comment [Automated 269-8) message] The sy stem which generated this result transmitted reference range : 4.26 - 5.52 10*6/?L. The reference range was not used to interpret this result as normal/abnormal . HGB (test code = 14.0 g/dL 12.2-16.4 718-7) HCT (test code = 42.0 % 38.4-49.3 4544-3) MCV (test code = 89.7 fL 81.7-95.6 787-2) MCH (test code = 29.9 pg 26.1-32.7 785-6) MCHC (test code = 33.3 g/dL 31.2-35 786-4) RDW-SD (test code = 43.0 fL 38.5-51.6 24396-2) RDW-CV (test code = 12.9 % 12.1-15.4 788-0) PLT (test code = See_Comment [Automated 777-3) message] The sy stem which generated this result transmitted reference range : 150 - 328 10*3/ ?L. The reference r freddy was not used to interpret this result as normal/abnormal . MPV (test code = 9.7 fL 9.8-13 L 54794-5) NRBC/100 WBC (test See_Comment [Automat ed code = 6573075229) message] The system which generated this result transmitted reference range : 0.0 - 10.0 /100 WBCs. The refer ence range was not u sed to interpret th is result as normal/abnormal . NRBC x10^3 (test code <0.01 See_Comment [Auto mated = 2337524365) message] The s ystem which generated this result transmitted reference range : 10*3/?L. The reference range was not used to interpret this result as normal/abnormal . GRAN MAT (NEUT) % 57.3 % (test code = 770-8) IMM GRAN % (test code 0.40 % = 4814648315) LYMPH % (test code = 32.4 % 736-9) MONO % (test code = 8.7 % 5905-5) EOS % (test code = 0.8 % 713-8) BASO % (test code = 0.4 % 706-2) GRAN MAT x10^3(ANC) 4.21 10*3/uL 1.99-6.95 (test code = 3942157428) IMM GRAN x10^3 (test 0.03 10*3/uL 0-0.06 code = 4496706897) LYMPH x10^3 (test code 2.38 10*3/uL 1.09-3.23 = 731-0) MONO x10^3 (test code 0.64 10*3/uL 0.36-1.02 = 742-7) EOS x10^3 (test code = 0.06 10*3/uL 0.06-0.53 711-2) BASO x10^3 (test code 0.03 10*3/uL 0.01-0.09 = 704-7) Lab Interpretation Abnormal (test code = 57164-2) [facility]"
--- NOTE | 2021-07-15 08:54 | ER ---
Nurse's Notes [facility] Name: Osvaldo Crowe Age: 36 yrs Sex: Male : 1985 Arrival Date: 07/15/2021 Time: 08:06 Bed Waiting Private MD: Diagnosis: Assessment: 07/15 08:27 Reassessment: called from ED lobby twice, no answer. Unable to locate patient. 08:52 Reassessment: called from ER lobby. No answer. Unable to locate patient. Asked ER ss registration personnel if they saw the patient leave and stated that "he probably left because he just wanted a medication refill.". ED Course: 08:06 Patient arrived in ED. ophelia Administered Medications: No medications were administered Outcome: 08:53 Patient left the ED. Signatures: Divya Conroy, RN RN Kathleen Villalobos
== END 2021-07-15 08:53 | disposition left against medical advice (07) ==
LOC: ER 08:00
DX: Z02.9 Encounter for administrative examinations, unspecified (principal)

== ENCOUNTER 2022-02-08 19:30 | Emergency (ER) | payer OTHER ==
--- OUTSIDE RECORDS SUMMARY | 2022-02-08 19:34 | XMS REPORT | Continuity of Care Document ---
:1985 Author Organization [facility] t Address [address] [place] [address] Care Team Providers Name Role Phone Asked, No Pcp Primary Care Physician Unavailable Ludwig CISSE, Julita Coello Attending Clinician Unavailable JUAN C MEIER Attending Clinician Unavailable Juan C Meier DO Attending Clinician Doctor Unassigned, [place] Attending Clinician Unavailable JUAN FOOTE Attending Clinician Unavailable BLOSSOM LEIGH Attending Clinician Unavailable JAREN QUINONEZ Attending Clinician Unavailable Edenilson Mendoza Attending Clinician Payers Payer Name Policy Type Policy Number Effective Date Expiration Date Sarah huertas [facility] MEDICARE [id number] 2021 2022 COMPLETE OON 00:00:00 00:00:00 TP24 QUALIFIED [id number] 2019 MEDICARE 00:00:00 BENEFICIARY Problems Condition Condition Condition Status Onset Resolution Last Treating Co mments Source Name Details Category Date Date Treatment Clinician Date Drug-induc Drug-induc Disease Active M ethodi ed 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 Other and Other and Disease Active Uni vers unspecifie unspecifie 03-04 [place] of d alcohol d alcohol 00[place] dependence 00 [facility] Allergies, Adverse Reactions, Alerts Allergy Allergy Status Severity Reaction(s) Onset Inactive Treating Comm ents Source Name Type Date Date Clinician Ibuprofe Propensi Active Palpitations Univers n ty to 3-15 ity of adverse 00:00: [place] reaction 00 [facility] s [place] IBUPROFE DRUG Active Palpitations Un kinsey N INGREDI 3-15 ity of 00:00: [place] [address] [place] [address] NO KNOWN Allergy Active [facility] Family History Family Member Diagnosis Comments Start Date Stop Date Source Natural father Bipolar disorder [facility] Natural mother Alcohol abuse [facility] Social History Social Habit Start Date Stop Date Quantity Comments Source Exposure to Not sure University of SARS-CoV-2 (event) [facility] History of tobacco Cigarette Smoker [facility] Cigarettes smoked 2016-09-15 2016-09-15 [facility] current (pack per 00:00:00 00:00:00 Hospita l day) - Reported Cigarette 2016-09-15 2016-09-15 [facility] pack-years 00:00:00 00:00:00 Hospital Alcohol intake 2016-09-15 2016-09-15 1.14 /d [facility] 00:00:00 00:00:00 Hospital Sex Assigned At [birth year] Universit y of 00:00:00 00:00:00 [facility] Smoking Status Start Date Stop Date Source Unknown if ever smoked [facility] [place] [facility] Current every day smoker 2016-09-15 00:00:00 [facility] Medications Ordered Filled Start Stop Current Ordering Indication Dosage Frequency Signature Comments Components Source Medication Medication Date Date Medication? Clinician (SIG) Name Name bang 2015-06 Yes 1{tbl} Take 1 Un kinsey n tablet 1-01 tablet by ity of 00:00: mouth [place] 00 daily. [facility] 2015-06 Yes 650mg Take 2 Uni vers en 1-01 tablets by ity of (TYLENOL) 00:00: mouth [place] 325 mg 00 every 6 Medical tablet (six) Branch hours as needed for Pain (scale 1-3) or Pain (scale 4-6). [facility] 2015-06 Yes 1{tbl} Take 1 Un kinsey n tablet 1-01 tablet by ity of 00:00: mouth [place] 00 daily. [facility] 2015-06 Yes 650mg Take 2 Uni vers en 1-01 tablets by ity of (TYLENOL) 00:00: mouth [place] 325 mg 00 every 6 Medical tablet (six) Branch hours as needed for Pain (scale 1-3) or Pain (scale 4-6). [facility] 2015-06 Yes 1{tbl} Take 1 Un kinsey n tablet 1-01 tablet by ity of 00:00: mouth [place] 00 daily. Medical Branch [facility] 2015-06 Yes 650mg Take 2 Uni vers en 1-01 tablets by ity of (TYLENOL) 00:00: mouth [place] 325 mg 00 every 6 Medical tablet (six) Branch hours as needed for Pain (scale 1-3) or Pain (scale 4-6). [facility] 2015[facility] Yes 1{tbl} Take 1 Un kinsey n tablet 1-01 tablet by ity of 00:00: mouth [place] 00 daily. [facility] 2015-06 Yes 650mg Take 2 Uni vers en 1-01 tablets by ity of (TYLENOL) 00:00: mouth [place] 325 mg 00 every 6 Medical tablet (six) Branch hours as needed for Pain (scale 1-3) or Pain (scale 4-6). No known No Methodi medications [facility]osp[facility] Vital Signs Vital Name Observation Time Observation Value Comments Source Systolic blood 2021-09-18 11:00:00 109 mm[Hg] Univer sity of pressure [place] [facility] Diastolic blood 2021-09-18 11:00:00 75 mm[Hg] Unive rsity of pressure [place] [facility] Heart rate 2021-09-18 11:00:00 59 /min [facility]i [facility] [place] [facility] Respiratory rate 2021-09-18 11:00:00 12 /min Univ ersity [facility] [place] [facility] Oxygen saturation in 2021-09-18 11:00:00 100 /min University of Arterial blood by [place] Elivar ash Pulse oximetry Branch Body temperature 2021-09-18 02:28:00 35.89 Melonie Univ ers[facility] [place] [facility] Body height 2021-09-18 02:28:00 165.1 cm [facility] [place] [facility] Body weight 2021-09-18 02:28:00 54.432 kg [facility] [place] [facility] BMI 2021-09-18 02:28:00 19.97 kg/m2 [facility] [place] [facility] HEIGHT 2021-08-09 08:53:00 165.1 cm WEIGHT 2021-08-09 08:53:00 57.607 kg HEIGHT 2021-08-09 08:53:00 165.1 cm WEIGHT 2021-08-09 08:53:00 57.607 kg Systolic blood 2019-02-18 06:30:00 102 mm[Hg] Univer sity of pressure [place] [facility] Diastolic blood 2019-02-18 06:30:00 66 mm[Hg] Unive rsity of pressure [place] [facility] Heart rate 2019-02-18 06:30:00 71 /min [facility] [place] [facility] Respiratory rate 2019-02-18 06:30:00 18 /min Univ ersity [facility] [place] [facility] Oxygen saturation in 2019-02-18 06:30:00 98 /min University of Arterial blood by [place] Medi ash Pulse oximetry Branch Body temperature 2019-02-18 03:19:00 36.5 Melonie Univ ers[facility] [place] [facility] Body height 2019-02-18 03:19:00 165.1 cm [facility] [place] [facility] Body weight 2019-02-18 03:19:00 59.875 kg [facility] [place] [facility] BMI 2019-02-18 03:19:00 21.97 kg/m2 [facility] [place] [facility] Systolic blood 2019-02-18 06:30:00 102 mm[Hg] Univer sity [facility] Diastolic blood 2019-02-18 06:30:00 66 mm[Hg] [facility] Heart rate 2019-02-18 06:30:00 71 /min [facility] Respiratory rate 2019-02-18 06:30:00 18 /min [facility] Oxygen saturation in 2019-02-18 06:30:00 98 /min [facility] Arterial blood by [facility] Pulse oximetry [place] Body temperature 2019-02-18 03:19:00 36.5 Melonie [facility] Body height 2019-02-18 03:19:00 165.1 cm [facility] Body weight 2019-02-18 03:19:00 59.875 kg [facility] BMI 2019-02-18 03:19:00 21.97 kg/m2 [facility] Procedures Procedure Date / Time Performing Clinician Source Performed COMP. METABOLIC PANEL 2021-09-18 03:36:00 Juan C Meier [facility] ([id number]) [facility] SALICYLATE 2021-09-18 03:36:00 Singer [facility] ETHANOL 2021-09-18 03:36:00 Singer [facility] CBC WITH DIFF 2021-09-18 03:36:00 Singer [facility] URINALYSIS 2021-09-18 03:36:00 Singer [facility] COVID-19 (ID NOW RAPID 2021-09-18 03:36:00 Juan C Meier [facility] TESTING) [facility] URINE DRUG (IMMUNOASSAY) 2021-09-18 03:36:00 Juan C Meier [facility] DRUG Medical [facility] SCREEN W/O REFLEX CONSENT/REFUSAL FOR 2021-09-18 02:09:30 Doctor Unassigned, No Un [facility] DIAGNOSIS AND TREATMENT Name Medical Branch XR CHEST 1 VW 2019-02-18 03:59:16 Edenilson Granados [facility] THYROID STIMULATING 2019-02-18 03:57:00 Edenilson Granados [facility] HORMONE [facility] COMP. METABOLIC PANEL 2019-02-18 03:57:00 Edenilson Granados [facility] ([id number]) Medical Branch ACETAMINOPHEN 2019-02-18 03:57:00 Edenilson Granados [facility] ETHANOL 2019-02-18 03:57:00 Edenilson Granados [facility] CBC WITH DIFFERENTIAL 2019-02-18 03:57:00 Edenilson Granados [facility] URINALYSIS 2019-02-18 03:57:00 Edenilson Granados [facility] ADC / LCC - DRUG SCREEN 2019-02-18 03:57:00 Edenilson Granados [facility] EKG-12 LEAD 2019-02-18 03:31:24 Edenilson Granados [facility] Encounters Start End Encounter Admission Attending Care Care Encounter Source Date/Time Date/Time Type Type Clinicians Facility Department ID 2021-09-18 Outpatient [facility] [id number] PR 06:10:41 [id number] Health 2021-09-19 2021-09-19 Letter SANNA Munroe [id number] Univers 00:00:00 00:00:00 (Out) Julita ROSE [id number] it y of [place] [id number] Jaguar as [id number] [facility] 019 [place] 2021-09-17 2021-09-18 Emergency X [facility] ERT [id number] Univers 21:25:00 12:29:00 JUAN C lunsford [facility] 2021-09-17 2021-09-18 Emergency [facility] [id number] Univers 21:25:00 12:29:00 Juan C NESBITT 350.1.13.10 i ty of [place] 42.7.2.686 [facility] [id number] [facility] 084 [place] 2021-09-17 2021-09-17 Orders Doctor SANNA [id number] Univers 00:00:00 00:00:00 Only Unassigned, ROSE 350.1.13.10 ity of [place] [address]686 [place] as [id number] [facility] 009 Branch 2021-08-09 2021-08-12 Inpatient [facility] [id number] [place] 12:52:00 18:40:00 Health 2021-08-09 2021-08-09 Emergency ER JUAN FOOTE SLE Emergency 20 [id number] [facility] 08:58:00 12:45:00 2021-08-08 2021-08-09 Emergency [facility] [id number] [place] 19:21:00 06:54:00 BRAYAN [facility] BLOSSOM 2021-08-08 2021-08-08 Emergency [facility] [id number] [place] 17:53:56 18:02:46 Health 2021-08-08 2021-08-08 Emergency [facility] [id number] [place] [address] 00:00:00 00:00:00 [facility] [address] [place] [facility] 2019-02-17 2019-02-18 Emergency [facility] [id number] 22:23:41 01:31:00 Edenilson Nesbitt 350.1.13.10 [place] 4.2.7.2.686 [place] [id number] [facility] 2019-02-17 2019-02-18 Emergency [facility] [id number] [facility] 22:23:41 01:31:00 Edenilson Nesbitt 350.1.13.10 i ty of [place] 4.2.7.2.686 [facility] [id number] [address] Results Test Description Test Time Test Comments Results Result Comments Source ETHANOL 2021-09-18 04:20:56 Test Item Value Reference Range Interpretation Comme nts ALCOHOL (test code = 6514781915) <10 mg/dL DIYA (test code = DIYA) <10 [id number] Toxic>100 Depression of [employer]>400 Fatalities [facility]orted [facility] 04:18:06 Test Item Value Reference Range Interpretation Comments SALICYLATE (test code <10 mg/L = 4677558270) DIYA (test code = DIYA) Therapeutic Range: ? Analgesic and Antipyretic Use ? 20-100 mg/L ? ? Anti-Inflammatory Use ? 100-250 mg/L Toxic Range: ? Greater than 300 mg/L [facility]24 04:18:00 Test Item Value Reference Range Interpretation Comments ACETAMINOP (test code = <10.0 10.0-30.0 L 9355744366) DIYA (test code = DIYA) Toxic: Greater than 200 ug/mL @ 4 hour post ingestion or greater than 50 ug/mL @ 12 hour post ingestion Lab Interpretation (test Abnormal code = 74433-0) [facility] ([id number])2021-09-18 04:15:25 Test Item Value Reference Range Interpretation Comments NA (test code = 136 mmol/L 135-145 5910601927) K (test code = 4.1 mmol/L 3.5-5.0 1399815806) CL (test code = 103 mmol/L 98-108 7607212548) CO2 TOTAL (test code = 29 mmol/L 23-31 0040159033) AGAP (test code = 2-16 4689860023) BUN (test code = 16 mg/dL 7-23 7082023425) GLUCOSE (test code = 69 mg/dL 70-110 L 9262473489) CREATININE (test code = 0.80 mg/dL 0.60-1.25 8911831283) TOTAL BILI (test code = 0.5 mg/dL 0.1-1.0 6137663377) CALCIUM (test code = 9.0 mg/dL 8.6-10.6 4782957687) T PROTEIN (test code = 6.5 g/dL 6.3-8.2 1806494781) ALBUMIN (test code = 4.0 g/dL 3.5-5.0 4198352625) ALK PHOS (test code = 87 U/L 34-122 6286673518) ALTv (test code = 21 U/L 5-50 1742-6) AST(SGOT) (test code = 31 U/L 13-40 7447525492) eGFR (test code = mL/min/1.73m2 4498059703) DIYA (test code = DIYA) Association of Glomerular Filtration Rate (GFR) and Staging of Kidney Disease* + --+ --+ ------+| GFR (mL/min/1.73 m2) ?| With Kidney Damage ?| ?Without Kidney Damage+ --------+ --------+ +| ?>90 ?| ?Stage one ?| ? Normal ?+ ---+ ---+ -------+| ?60-89 ?| ?Stage two ?| ? Decreased GFR ? + --+ --+ ------+| ?30-59 ?| ?Stage three ?| ? Stage three ? + --+ --+ ------+| ?15-29 ?| ?Stage four ? | ? Stage four ?+ ---+ ---+ -------+| ?<15 (or dialysis) ? ?| ?Stage five ? | ? Stage five ?+ ---+ ---+ -------+ *Each stage assumes the associated GFR level has been in effect for at least three months. ?Stages 1 to 5, with or without kidney [...] or urine or abnormalities in imaging tests). Lab Interpretation Abnormal (test code = 62882-8) [facility] WITH [id number] 03:59:43 Test Item Value Reference Range Interpretation Comments WBC (test code = See_Comment [Automated 1937-2) message] The sy stem which generated this result transmitted reference range : 4.20 - 10.70 10*3/?L. The reference range was not used to interpret this result as normal/abnormal . RBC (test code = See_Comment [Automated 021-1) message] The sy stem which generated this result transmitted reference range : 4.26 - 5.52 10*6/?L. The reference range was not used to interpret this result as normal/abnormal . HGB (test code = 15.1 g/dL 12.2-16.4 718-7) HCT (test code = 45.5 % 38.4-49.3 4544-3) MCV (test code = 89.0 fL 81.7-95.6 787-2) MCH (test code = 29.5 pg 26.1-32.7 785-6) MCHC (test code = 33.2 g/dL 31.2-35.0 786-4) RDW-SD (test code = 40.9 fL 38.5-51.6 57172-2) RDW-CV (test code = 12.4 % 12.1-15.4 788-0) PLT (test code = See_Comment [Automated 777-3) message] The sy stem which generated this result transmitted reference range : 150 - 328 10*3/ ?L. The reference r freddy was not used to interpret this result as normal/abnormal . MPV (test code = 9.5 fL 9.8-13.0 L 00623-0) NRBC/100 WBC (test See_Comment [Automat ed code = 4250493832) message] The system which generated this result transmitted reference range : 0.0 - 10.0 /100 WBCs. The refer ence range was not u sed to interpret th is result as normal/abnormal . NRBC x10^3 (test code <0.01 See_Comment [Auto mated = 9292463543) message] The s ystem which generated this result transmitted reference range : 10*3/?L. The reference range was not used to interpret this result as normal/abnormal . GRAN MAT (NEUT) % 62.3 % (test code = 770-8) IMM GRAN % (test code 0.30 % = 5513817099) LYMPH % (test code = 26.3 % 736-9) MONO % (test code = 8.4 % 5905-5) EOS % (test code = 2.1 % 713-8) BASO % (test code = 0.6 % 706-2) GRAN MAT x10^3(ANC) 4.09 10*3/uL 1.99-6.95 (test code = 3524331659) IMM GRAN x10^3 (test <0.03 0.00-0.06 code = 0515554609) LYMPH x10^3 (test code 1.73 10*3/uL 1.09-3.23 = 731-0) MONO x10^3 (test code 0.55 10*3/uL 0.36-1.02 = 742-7) EOS x10^3 (test code = 0.14 10*3/uL 0.06-0.53 711-2) BASO x10^3 (test code 0.04 10*3/uL 0.01-0.09 = 704-7) Lab Interpretation Abnormal (test code = 83144-2) [facility]) 2021-08-09 15:17:01 Test Item Value Reference Range Interpretation Comments SARS-COV2/RT-PCR (test Negative Not Detected, Negative, code = 0232150) See external report for linked test SARS-COV-[address] [facility] (test code = 7124898) Negative result for this test determines that SARS-CoV-2 RNA was not present in the specimen above the Limit of Detection (LOD). However, Negative results do not preclude SARS-CoV-2 infection and should not be used as the sole basis for treatment or patient management decisions. Negative results must be combined with clinical observations, patient history, and epidemiological information. A false negative result may occur if a specimen is improperly collected, transported or handled. A false negative result should be considered if patient's recent exposures or clinical presentation indicate that COVID-19 (SARS-CoV-2) is likely and diagnostic tests for other causes of illness are negative. Re-testing should be considered in cases of suspected false negatives.The limit of detection for this assay is 800 copies/mL.This SARS CoV-2 test is a real-time RT-PCR test intended for the qualitative detection of nucleic acid from SARS-CoV-2 in a nasopharyngeal swab specimen collected from individuals suspected of COVID-19 by their healthcare provider.This test has not been Food and Drug Administration (FDA) cleared or approved. This is a modified version of an approved Emergency Use Authorization (EUA) and is in the process of review by the FDA. Once authorized by the FDA, the issued EUA will be effective until the declaration that circumstances exist justifying the authorization of the emergency use ofin vitro diagnostic tests for detection and/or diagnosis of COVID-19 is terminated under Section 564(b)(2) of the Act or the EUA is revoked under Section 564(g) of the Act.Fact Sheet for Healthcare Prov iders:https://www.[facility]/sites/default/files/product/documents/Fact_Sheet_HC _Ztdrnkjss_Wcmz_WPJU-MxX-6.pdfFact Sheet for Healthcare Patients:https://www.[facility]/sites/default/files/product/docume nts/Vlcd_Mbxyt_Vknsbdjr_Iwij_YBLV-HpC-6.pdfPerforming Laboratory:[facility], [place] [address]GOWHWRIWVB LEVEL 2021-08-09 12:53:37 Test Item Value Reference Range Interpretation Comments SALICYLATE LEVEL (BEAKER) (test code < mg/dL 15.0-30.0 L = 764) Therapeutic Range: 15.0-30.0 mg/dLToxic: >30.0 mg/dL Lethal: >70.0 mg/dL RAPID DRUG SCREEN, [id number] 11:08:48 Test Item Value Reference Range Interpretation Comments BARBITURATE URINE (BEAKER) (test Negative Negative code = 725) BENZODIAZEPINE SCREEN URINE (BEAKER) Negative Negative (test code = 726) COCAINE (METAB.) SCREEN (BEAKER) Negative Negative (test code = 1164) METHADONE SCREEN (BEAKER) (test code Negative Negative = 1436) OPIATE SCREEN URINE (BEAKER) (test Negative Negative code = 734) CANNABINOID SCREEN URINE (BEAKER) Negative Negative (test code = 727) AMPH/METHAMPH SCREEN (BEAKER) (test Positive Negative A code = 1438) PHENCYCLIDINE SCREEN URINE (BEAKER) Negative Negative (test code = 608) PH UA (BEAKER) (test code = 467) 6.5 5.0-8.0 DRUG CUTOFF CONC.Cocaine 300 ng/mL Cannabinoid 50 ng/mLBenzodiazepine 200 ng/mLBarbiturate 200 ng/mLPhencyclidine 25 ng/mLOpiate 300 ng/mLMethadone 300 ng/mLAmphetamine/ 1000 ng/mL MethamphetamineThis assay provides an unconfirmed qualitative test result for the clinical management of patients in emergency situations. Chain of custody not maintained. Some jpmu-ysm-vvwsrzf medications, as well as adulterants, may cause inaccurate results. Clinical correlation should be applied. A more comprehensive drug screen or confirmation of a detected drug may be performed upon request.Melangeur Operator ID - [auto]Melangeur Operator ID - MARVA MOperator ID - techCOMPREHENSIVE METABOLIC [id number] 10:50:53 Test Item Value Reference Range Interpretation Comments TOTAL PROTEIN 7.0 gm/dL 6.0-8.3 (BEAKER) (test code = 770) ALBUMIN (BEAKER) 3.9 g/dL 3.5-5.0 (test code = 1145) ALKALINE PHOSPHATASE 92 U/L 40-150 (BEAKER) (test code = 346) BILIRUBIN TOTAL 0.4 mg/dL 0.2-1.2 (BEAKER) (test code = 377) SODIUM (BEAKER) (test 138 meq/L 136-145 code = 381) POTASSIUM (BEAKER) 4.2 meq/L 3.5-5.1 (test code = 379) CHLORIDE (BEAKER) 107 meq/L 98-107 (test code = 382) CO2 (BEAKER) (test 25 meq/L 22-29 code = 355) BLOOD UREA NITROGEN 14 mg/dL 7-21 (BEAKER) (test code = 354) CREATININE (BEAKER) 0.77 mg/dL 0.57-1.25 (test code = 358) GLUCOSE RANDOM 102 mg/dL 70-105 (BEAKER) (test code = 652) CALCIUM (BEAKER) 9.4 mg/dL 8.4-10.2 (test code = 697) AST (SGOT) (BEAKER) 21 U/L 5-34 (test code = 353) ALT (SGPT) (BEAKER) 19 U/L 6-55 (test code = 347) EGFR (BEAKER) (test 114 ESTIMATE D GFR IS code = 1092) mL/min/1.73 sq NOT ACCURA TE m CREATININE CLEARANCE IN PREDICTING GLOMERULAR FILTRATION RATE . ESTIMATED GFR I S NOT APPLICABLE FOR DIALYSIS PATIEN TS. Melangeur Operator ID - MARVA MACETAMINOPHEN [id number] 10:50:53 Test Item Value Reference Range Interpretation Comments ACETAMINOPHEN LEVEL (BEAKER) (test < ug/mL 10.0-30.0 L code = 344) Therapeutic Range: 10.0-30.0 g/mLToxic Levels: >200.0 g/mLOperator ID - MARVA [id number] 10:48:12 Test Item Value Reference Range Interpretation Comments ETHANOL (BEAKER) < mg/dL See_Comment [Automated message] The (test code = 400) system [employer] generated this result tra nsmitted reference range : <=10. The reference r freddy was not used to int erpret this result as normal/abnormal . Melangeur Operator ID - MARVA MCBC W/PLT COUNT & AUTO [id number] 10:30:51 Test Item Value Reference Range Interpretation Comments WHITE BLOOD CELL COUNT (BEAKER) 8.4 K/ L 3.5-10.5 (test code = 775) RED BLOOD CELL COUNT (BEAKER) 5.30 M/ L 4.63-6.08 (test code = 761) HEMOGLOBIN (BEAKER) (test code = 15.5 GM/DL 13.7-17.5 410) HEMATOCRIT (BEAKER) (test code = 46.5 % 40.1-51.0 411) MEAN CORPUSCULAR VOLUME (BEAKER) 87.7 fL 79.0-92.2 (test code = 753) MEAN CORPUSCULAR HEMOGLOBIN 29.2 pg 25.7-32.2 (BEAKER) (test code = 751) MEAN CORPUSCULAR HEMOGLOBIN CONC 33.3 GM/DL 32.3-36.5 (BEAKER) (test code = 752) RED CELL DISTRIBUTION WIDTH 12.5 % 11.6-14.4 (BEAKER) (test code = 412) PLATELET COUNT (BEAKER) (test 269 K/CU MM 150-450 code = 756) MEAN PLATELET VOLUME (BEAKER) 9.0 fL 9.4-12.4 L (test code = 754) NUCLEATED RED BLOOD CELLS 0 /100 WBC 0-0 (BEAKER) (test code = 413) NEUTROPHILS RELATIVE PERCENT 74 % (BEAKER) (test code = 429) LYMPHOCYTES RELATIVE PERCENT 19 % (BEAKER) (test code = 430) MONOCYTES RELATIVE PERCENT 6 % (BEAKER) (test code = 431) EOSINOPHILS RELATIVE PERCENT 1 % (BEAKER) (test code = 432) BASOPHILS RELATIVE PERCENT 0 % (BEAKER) (test code = 437) NEUTROPHILS ABSOLUTE COUNT 6.26 K/ L 1.78-5.38 H (BEAKER) (test code = 670) LYMPHOCYTES ABSOLUTE COUNT 1.59 K/ L 1.32-3.57 (BEAKER) (test code = 414) MONOCYTES ABSOLUTE COUNT (BEAKER) 0.48 K/ L 0.30-0.82 (test code = 415) EOSINOPHILS ABSOLUTE COUNT 0.04 K/ L 0.04-0.54 (BEAKER) (test code = 416) BASOPHILS ABSOLUTE COUNT (BEAKER) 0.03 K/ L 0.01-0.08 (test code = 417) IMMATURE GRANULOCYTES-RELATIVE 0 % 0-1 PERCENT (BEAKER) (test code = 2801) RAD, CHEST, 1 VIEW, NON [id number] 10:30:00Reason for exam:->MENTAL HEALTH PROBLEMShould this be performed at the bedside?->Yes [facility] : 1985 Sex: MFINALREPORT RAD, CHEST, 1 VIEW, NON DEPT TECHNIQUE: Frontal view(s) of the chest. INDICATION: MENTAL HEALTH PROBLEM COMPARISON: None FINDINGS/IMPRESSION: Lines/Tubes: None Lungs/pleura:No focal consolidation or interstitial pulmonary edema. No pleural effusion. No pneumothorax. Heart and Mediastinum: Unremarkable. Soft Tissues and Bones: Unremarkable. Signed: Main [place] Verified Date/Time: 08/09/2021 10:30:08 Reading Location: [facility] C013X Ortho Consult Reading Room THYROID STIMULATING [id number] 05:13:00 Test Item Value Reference Range Interpretation Comments TSH (test code = See_Comment [Automated message] [id number]) The system [employer] generated this result transmitted ref erence range: 0.45 - 4 .70 mIU/L. The refe rence range was not u sed to interpret this result as normal/abnor mal. Lab Interpretation (test Normal code = 73694-9) [facility] [id number] 04:50:15 No acute cardiopulmonary abnormality. I, MD Ramona., have reviewed this study and agree with the abovereport.* * * * * * * * ORIGINAL REPORT * * * * * * * *XR CHEST 1 VW HISTORY: Admission clearance COMPARISON: 04/16/2016 FINDINGS: The lungs are clear. No focal consolidation, pneumothorax, or pleuraleffusion is seen. The cardiomediastinal silhouette is normal. No acute osseous abnormality. [facility], Radiant Results Inft User - 02/17/2019 11:52 PM CDT* * * * * * * * ORIGINAL REPORT * * * * * * * *XR CHEST 1 VWHISTORY: Admission clearance COMPARISON: 04/16/2016FINDINGS:The lungs are clear. No focalconsolidation, pneumothorax, or pleuraleffusion is seen.The cardiomediastinal silhouette is normal.No acute osseous abnormality.IMPRESSIONNo acute cardiopulmonary abnormality.I, Tanika Moralez MD., have reviewed this study and agree with the abovereport.[facility]ACET[facility]INOPHEN2019-08-24 04:46:00 Test Item Value Reference Range Interpretation Comments ACETAMINOP (test code = <10.0 10-30 L [id number]) DIYA (test code = DIYA) Toxic: Greater than 200 ug/mL @ 4 hour post ingestion or greater than 50 ug/mL @ 12 hour post ingestion Lab Interpretation (test Abnormal code = 06967-7) [facility] 04:46:00 Test Item Value Reference Range Interpretation Comments ALCOHOL (test code = <10 mg/dL 4342432320) DIYA (test code = DIYA) <10 [id number] Toxic>100 Depression of [employer]>400 Fatalities Reported [facility]. METABOLIC PANEL ([id number])2019-02-18 04:43:00 Test Item Value Reference Range Interpretation Comments NA (test code = 142 mmol/L 135-145 8280956404) K (test code = 4.0 mmol/L 3.5-5 4172618811) CL (test code = 107 mmol/L 98-108 4427312309) CO2 TOTAL (test code = 24 mmol/L 23-31 8996391014) AGAP (test code = 2-16 0990898007) BUN (test code = 16 mg/dL 7-23 7456000947) GLUCOSE (test code = 105 mg/dL 70-110 8088192081) CREATININE (test code 0.74 mg/dL 0.6-1.25 = 0606250861) TOTAL BILI (test code 0.3 mg/dL 0.1-1.1 = 1734319497) CALCIUM (test code = 9.5 mg/dL 8.6-10.6 6218327674) T PROTEIN (test code = 7.0 g/dL 6.3-8.2 3906420421) ALBUMIN (test code = 4.3 g/dL 3.5-5 0462200938) ALK PHOS (test code = 97 U/L 34-122 8894628348) ALT(SGPT) (test code = 16 U/L 9-51 1284541344) AST(SGOT) (test code = 18 U/L 13-40 9390004427) eGFR Calculation mL/min/1.73m2 (Non-) (test code = 6804333590) eGFR Calculation mL/min/1.73m2 () (test code = 5195555809) DIYA (test code = DIYA) Association of [...] or urine or abnormalities in imaging tests). [facility]IN[facility]IS2019-08-24 04:22:00 Test Item Value Reference Range Interpretation Comments APPEARANCE (test code Slightly Cloudy Clear A = 8824440058) COLOR (test code = Yellow Yellow 1132127667) PH (test code = 4.8-8.0 2714400471) SP GRAVITY (test code 1.003-1.030 = 5698141635) GLU U QUAL (test code Negative Negative = 2475430525) BLOOD (test code = Negative Negative 4727314694) KETONES (test code = Negative Negative 7290074771) PROTEIN (test code = Negative Negative 2887-8) UROBILIN (test code = 0.2 mg/dL See_Comment [Auto mated 5183962442) message] The system which generated this result transmit pao reference range : 0-1.0 mg/dL. Th e reference range was not used to interpret this result as normal/abnormal . BILIRUBIN (test code Negative Negative = 6324041107) NITRITE (test code = Negative Negative 8386097081) LEUK LYNN (test code Negative Negative = 6673977017) RBC/HPF (test code = See_Comment [Autom ated 4113789870) message] The system which generated this result transmit pao reference range : 0 - 3 HPF. The reference range was not used to interpret this result as normal/abnormal . WBC/HPF (test code = See_Comment [Autom ated 8086450064) message] The system which generated this result transmit pao reference range : 0 - 5 HPF. The reference range was not used to interpret this result as normal/abnormal . BACTERIA (test code = Few Negative A 5664956229) AMORPHOUS (test code Moderate HPF = 0036921384) Lab Interpretation Abnormal (test code = 06405-9) [facility] - DRUG SCREEN [id number] 04:21:00 Test Item Value Reference Range Interpretation Comments BENZO U (test code = Negative Negative 1848289276) VENKATESH U (test code = Negative Negative 7524902391) AMPHET (test code = Negative Negative 7939611028) THC (test code = Negative Negative 2026697833) METHADONE (test code = Negative Negative 6756028230) Meth U (test code = Negative Negative 6487333093) OPIATES (test code = Negative Negative 4145363114) Cocaine Metabolite (test Negative Negative code = 7429470580) PROPOXY (test code = Negative Negative 4574270346) Tric U (test code = Negative Negative 2100923520) PCP (test code = Negative Negative 4613871348) OXYCOD (test code = Negative Negative 5085154911) DIYA (test code = DIYA) Urine Drug [...] testing). Lab Interpretation (test Normal code = 36008-7) [facility] WITH [id number] 04:08:00 Test Item Value Reference Range Interpretation Comments WBC (test code = See_Comment [Automated 6104-2) message] The sy stem which generated this result transmitted reference range : 4.20 - 10.70 10*3/?L. The reference range was not used to interpret this result as normal/abnormal . RBC (test code = See_Comment [Automated 772-3) message] The sy stem which generated this [...] RDW-SD (test code = 43.0 fL 38.5-51.6 48173-6) RDW-CV (test code = 12.9 % 12.1-15.4 788-0) PLT (test code = See_Comment [Automated 777-3) message] The sy stem which generated this result transmitted reference range : 150 - 328 10*3/ ?L. The reference r freddy was not used to interpret this result as normal/abnormal . MPV (test code = 9.7 fL 9.8-13 L 28883-4) NRBC/100 WBC (test See_Comment [Automat ed code = 4066013174) message] The system which generated this result transmitted reference range : 0.0 - 10.0 /100 WBCs. The refer ence range was not u sed to interpret th is result as normal/abnormal . NRBC x10^3 (test code <0.01 See_Comment [Auto mated = 9057724677) message] The s ystem which generated this result transmitted reference range : 10*3/?L. The reference range was not used to interpret this result as normal/abnormal . GRAN MAT (NEUT) % 57.3 % (test code = 770-8) IMM GRAN % (test code 0.40 % = 0188059491) LYMPH % (test code = 32.4 % 736-9) MONO % (test code = 8.7 % 5905-5) EOS % (test code = 0.8 % 713-8) BASO % (test code = 0.4 % 706-2) GRAN MAT x10^3(ANC) 4.21 10*3/uL 1.99-6.95 (test code = 1354845855) IMM GRAN x10^3 (test 0.03 10*3/uL 0-0.06 code = 0119405080) LYMPH x10^3 (test code 2.38 10*3/uL 1.09-3.23 = 731-0) MONO x10^3 (test code 0.64 10*3/uL 0.36-1.02 = 742-7) EOS x10^3 (test code = 0.06 10*3/uL 0.06-0.53 711-2) BASO x10^3 (test code 0.03 10*3/uL 0.01-0.09 = 704-7) Lab Interpretation Abnormal (test code = 38072-7) [facility]"
[2022-02-08 22:52] LABS: Urine Blood Negative (Negative); Urine Glucose Negative (Negative); Urine Protein Negative (Negative); Urine pH 5.5 (5.0-7.0)
[2022-02-08 23:12] LABS: Barbiturates NEGATIVE (NEGATIVE); Benzodiazepines NEGATIVE (NEGATIVE); Cocaine NEGATIVE (NEGATIVE); METHAMPHETAM NEGATIVE (NEGATIVE); Methadone NEGATIVE (NEGATIVE); Opiates NEGATIVE (NEGATIVE); Phencyclidine NEGATIVE (NEGATIVE); THC Cannibis NEGATIVE (NEGATIVE)
--- NOTE | 2022-02-08 23:27 | EDPHYS ---
Physician Documentation [facility] Name: Osvaldo Crowe Age: 36 yrs Sex: Male : 1985 Arrival Date: 02/08/2022 Time: 19:33 Bed 23 Private MD: ED Physician Mukesh Vora HPI: 02/08 22:43 This 36 yrs old Male presents to ER via Ambulatory with complaints of Psych Problem. [facility] 22:43 The patient presents to the emergency department with depression, rehab facility won't [facility] give his medication. 22:43 Onset: The symptoms/episode began/occurred yesterday. Past psychiatric history: Prior [facility] diagnosis: bipolar disorder, Anxiety, Psychiatric medications include: Abilify, hydroxyzine, Primary psychiatric physician: Dr. jordana gomes, the patient has not had a prior suicide gesture, the patient does not have a previous inpatient psychiatric history, the patient's last psychiatric treatment was last year. Associated signs and symptoms: Pertinent positives; anxiety, depression, Pertinent negatives: abdominal pain, chest pain, chills, delusions, fever, hallucinations, headache, homicidal ideation, nausea, night sweats, palpitations, paranoia, shortness of breath, substance abuse, suicide ideation, tremor, vomiting. Severity of symptoms: At their worst the symptoms were mild yesterday, in the emergency department the symptoms have resolved and did so just prior to arrival. The patient has experienced similar episodes in the past, multiple times. 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 He denies any suicidal or homicidal ideation, Denies any auditory or visual hallucinations. He states that he has a follow up with Jordana Gomes tomorrow.. Historical: - Allergies: 20:42 No Known Allergies; kb3 - Home Meds: 20:42 Abilify 5 mg oral tab 1 tab once daily [Active]; hydroxyzine HCl 10 mg Oral tab kb3 [Active]; - PMHx: 20:42 Anxiety; Bipolar disorder; Depression; Panic Attacks; Schizophrenia; Seizures; kb3 - PSHx: 20:42 None; kb3 - Immunization history:: Adult Immunizations up to date, Client reports receiving the 2nd dose of the Covid vaccine, Last tetanus immunization: up to date. - Social history:: Smoking status: Patient reports the use of cigarette tobacco products, smokes one-half pack cigarettes per day, Patient/guardian denies using alcohol, street drugs. ROS: 22:43 Constitutional: Negative for fever, chills, and weight loss, Eyes: Negative for injury, mh7 pain, redness, and discharge, ENT: Negative for injury, pain, and discharge, Neck: Negative for injury, pain, and swelling, Cardiovascular: Negative for chest pain, palpitations, and edema, Respiratory: Negative for shortness of breath, cough, wheezing, and pleuritic chest pain, Abdomen/GI: Negative for abdominal pain, nausea, vomiting, diarrhea, and constipation, Back: Negative for injury and pain, : Negative for injury, bleeding, discharge, and swelling, MS/Extremity: Negative for injury and deformity, Skin: Negative for injury, rash, and discoloration, Neuro: Negative for headache, weakness, numbness, tingling, and seizure, Allergy/Immunology: Negative for hives, rash, and allergies, Endocrine: Negative for neck swelling, polydipsia, polyuria, polyphagia, and marked weight changes, Hematologic/Lymphatic: Negative for swollen nodes, abnormal bleeding, and unusual bruising. 22:43 Psych: Negative for auditory hallucinations, visual hallucinations, homicidal ideation, insomnia, suicide gesture, suicidal ideation. Exam: 22:43 Constitutional: This is a well developed, well nourished patient who is awake, alert, mh7 and in no acute distress. Head/Face: Normocephalic, atraumatic. Eyes: Pupils equal round and reactive to light, extra-ocular motions intact. Lids and lashes normal. Conjunctiva and sclera are non-icteric and not injected. Cornea within normal limits. Periorbital areas with no swelling, redness, or edema. Neck: Trachea midline, no thyromegaly or masses palpated, and no cervical lymphadenopathy. Supple, full range of motion without nuchal rigidity, or vertebral point tenderness. No Meningismus. Chest/axilla: Normal chest wall appearance and motion. Nontender with no deformity. No lesions are appreciated. Cardiovascular: Regular rate and rhythm with a normal S1 and S2. No gallops, murmurs, or rubs. Normal PMI, no JVD. No pulse deficits. Respiratory: Lungs have equal breath sounds bilaterally, clear to auscultation and percussion. No rales, rhonchi or wheezes noted. No increased work of breathing, no retractions or nasal flaring. Abdomen/GI: Soft, non-tender, with normal bowel sounds. No distension or tympany. No guarding or rebound. No evidence of tenderness throughout. Back: No spinal tenderness. No costovertebral tenderness. Full range of motion. Skin: Warm, dry with normal turgor. Normal color with no rashes, no lesions, and no evidence of cellulitis. MS/ Extremity: Pulses equal, no cyanosis. Neurovascular intact. Full, normal range of motion. Neuro: Awake and alert, GCS 15, oriented to person, place, time, and situation. Cranial nerves II-XII grossly intact. Motor strength 5/5 in all extremities. Sensory grossly intact. Cerebellar exam normal. Normal gait. 22:43 Psych: Behavior/mood is pleasant, cooperative, Affect is calm, Oriented to person, place, time, Patient has no thoughts/intents to harm self or others. Judgement / Insight is normal. Memory is normal. Delusions/hallucinations are not present. Vital Signs: 20:40 BP 127 / 87; Pulse 78; Resp 20; Temp 98.3; Pulse Ox 100% ; Weight 68.04 kg; Height 5 kb3 ft. 5 in. (165.10 cm); Pain 0/10; 20:40 Body Mass Index 24.96 (68.04 kg, 165.10 cm) kb3 MDM: 23:25 Differential diagnosis: drug withdrawal. depression, Anxiety. Data reviewed: vital [facility] signs, nurses notes, lab test result(s), urine drug screen. Data interpreted: Pulse oximetry: on room air is 100 %. Interpretation: normal. Counseling: I had a detailed discussion with the patient and/or guardian regarding: the historical points, exam findings, and any diagnostic results supporting the discharge/admit diagnosis, lab results, the need for outpatient follow up, a psychiatrist, to return to the emergency department if symptoms worsen or persist or if there are any questions or concerns that arise at home. Response to treatment: the patient's symptoms have resolved after treatment, the patient's blood pressure is in an acceptable range, mental status has returned to baseline, the patient no longer shows bradycardia, the patient is not short of breath, the patient is not tachycardic, the patient's pain is gone, the patient's temperature has normalized, the patient is now symptom free, patient is well hydrated. Refusal of service: The patient/guardian displays adequate decision making capability and despite a detailed discussion of alternatives, benefits, risks, and consequences refuses: all lab tests. 23:25 ED course: Well appearing, NAD, VSS, no focal neurological deficits. Appropriate [facility] behavior and responses to questions. No suicidal or homicidal ideations. No auditory or visual hallucinations.. 23:27 Patient medically screened. [facility] 02/08 22:42 Order name: UDS; Complete Time: 23:15 [facility] 02/08 22:52 Order name: Urine Dipstick-Ancillary; Complete Time: 23:15 EDMS Administered Medications: No medications were administered Disposition Summary: 02/08/22 23:27 Discharge Ordered Location: Home [facility] Problem: an acute exacerbation [facility] Symptoms: have improved [facility] Condition: Stable [facility] Diagnosis - Depression [facility] - Anxiety 7 - Bipolar disorder, unspecified [facility] Followup: [facility] - With: Private Physician - When: 1 - 2 days - Reason: Worsening of condition, Recheck today's complaints, Continuance of care, Re-evaluation by your physician Followup: [facility] - With: Wai Krishnan MD - When: 1 - 2 days - Reason: Worsening of condition, Recheck today's complaints Discharge Instructions: - Discharge Summary Sheet [facility] - Managing Bipolar Disorder 7 - Managing Depression, Adult 7 - Managing Anxiety, Adult [facility] Forms: - Medication Reconciliation Form [facility] - Thank You Letter [facility] - Antibiotic Education [facility] - Prescription Opioid Use [facility] Signatures: Dispatcher [employer] Mukesh Diaz MD MD 7 Olamide Melchor, RN RN kb3
--- NOTE | 2022-02-08 23:27 | ER ---
Nurse's Notes [facility] Name: Osvaldo Crowe Age: 36 yrs Sex: Male : 1985 Arrival Date: 02/08/2022 Time: 19:33 Bed 23 Private MD: Diagnosis: Depression;Anxiety;Bipolar disorder, unspecified Presentation: 02/08 20:40 Chief complaint: Patient states: he checked himself out of alcohol rehab today because kb3 they "would not give me my medication." PT reports he is manic and has been off of his abilify for 2 days. PT presents with his abilify and his hydroxizine in hand. Coronavirus screen: Vaccine status: Patient reports receiving the 2nd dose of the covid vaccine. At this time, the client does not indicate any symptoms associated with coronavirus-19. Ebola Screen: Patient negative for fever greater than or equal to 101.5 degrees Fahrenheit, and additional compatible Ebola Virus Disease symptoms Patient denies exposure to infectious person. Patient denies travel to an Ebola-affected area in the 21 days before illness onset. No symptoms or risks identified at this time. Initial Sepsis Screen: Does the patient meet any 2 criteria? No. Patient's initial sepsis screen is negative. Does the patient have a suspected source of infection? No. Patient's initial sepsis screen is negative. Risk Assessment: Do you want to hurt yourself or someone else? Patient reports no desire to harm self or others. Onset of symptoms was February 08, 2022. 20:40 Method Of Arrival: Ambulatory kb3 20:40 Acuity: LUCERO 4 kb3 Triage Assessment: 20:42 General: Appears comfortable, Manic. Behavior is cooperative, anxious, restless. kb3 20:42 Pain: Denies pain. kb3 Historical: - Allergies: 20:42 No Known Allergies; kb3 - Home Meds: 20:42 Abilify 5 mg oral tab 1 tab once daily [Active]; hydroxyzine HCl 10 mg Oral tab kb3 [Active]; - PMHx: 20:42 Anxiety; Bipolar disorder; Depression; Panic Attacks; Schizophrenia; Seizures; kb3 - PSHx: 20:42 None; kb3 - Immunization history:: Adult Immunizations up to date, Client reports receiving the 2nd dose of the Covid vaccine, Last tetanus immunization: up to date. - Social history:: Smoking status: Patient reports the use of cigarette tobacco products, smokes one-half pack cigarettes per day, Patient/guardian denies using alcohol, street drugs. Screenin:48 Abuse screen: Denies threats or abuse. Denies injuries from another. Nutritional tw5 screening: No deficits noted. Tuberculosis screening: No symptoms or risk factors identified. Fall Risk None identified. Assessment: 21:48 General: Reports "I have been depressed and I need something for that. They had lost my tw5 Abilify at the rehab place and they found it as I was leaving. I came off lithium and Geodon while at the rehab place and I have just been really depressed.". General: Reports "I am just feeling a little manic and depressed.". Pain: Denies pain. Neuro: Level of Consciousness is awake, alert, obeys commands, Oriented to person, place, time, situation. Respiratory: No deficits noted. GI: No deficits noted. Vital Signs: 20:40 BP 127 / 87; Pulse 78; Resp 20; Temp 98.3; Pulse Ox 100% ; Weight 68.04 kg; Height 5 kb3 ft. 5 in. (165.10 cm); Pain 0/10; 20:40 Body Mass Index 24.96 (68.04 kg, 165.10 cm) kb3 ED Course: 19:33 Patient arrived in ED. rg4 20:42 Triage completed. kb3 20:42 Arm band placed on right wrist. kb3 21:46 Shruthi Wang is Primary Nurse. tw5 21:48 Awaiting ED provider evaluation. tw5 21:48 Patient has correct armband on for positive identification. Bed in low position. Door tw5 closed. Noise minimized. Moved to private room. 21:58 Mukesh Vora MD is Attending Physician. 7 23:06 Urine collected: clean catch specimen, clear, UDS. 5 23:26 Wai Krishnan MD is Referral Physician. 7 Administered Medications: No medications were administered Medication: 21:48 VIS not applicable for this client. tw5 Outcome: 23:27 Discharge ordered by . [facility] 23:54 Patient left the ED. bb Signatures: Sandy Reid RN RN Porsche Morales rg4 Carol Tillman [facility] Mukesh Vora MD MD mh7 Shruthi Wang 5 Olamide Melchor, TANNA RN kb3
[2022-02-09 03:24] VITALS: BP 127/87; TEMP 98.3; O2SAT 100
== END 2022-02-08 23:54 | disposition home or self-care (01) ==
LOC: ER 19:30
DX: F32.A Depression, unspecified (principal); F41.9 Anxiety disorder, unspecified; F20.9 Schizophrenia, unspecified; F17.210 Nicotine dependence, cigarettes, uncomplicated
CPT/HCPCS: 80307; 81003; 99282

== ENCOUNTER 2023-01-04 11:25 | Emergency (ER) | payer OTHER ==
--- OUTSIDE RECORDS SUMMARY | 2023-01-04 11:34 | XMS REPORT | Continuity of Care Document ---
:1985 Author Organization [facility] t Address [address] [facility] Jason. [address] [place] [address] Care Team Providers Name Role Phone Asked, No Pcp Primary Care Physician Unavailable Devi PEÑA, [facility] Attending Clinician Ludwig CISSE, Julita Coello Attending Clinician Unavailable JUAN C MEIER Attending Clinician Unavailable Juan C Meier DO Attending Clinician Doctor Unassigned, [place] Attending Clinician Unavailable JUAN FOOTE Attending Clinician Unavailable BLOSSOM LEIGH Attending Clinician Unavailable Edenilson Mendoza Attending Clinician MD DEVI [facility] Admitting Clinician Unavailable Payers Payer Name Policy Type Policy Number Effective Date Expiration Date S ource DEVOTED [employer] [id number] 2022 (MEDICARE 00:00:00 REPLACEMENT HMO) UHC MEDICARE [id number] 2021 2022 COMPLETE OON 00:00:00 00:00:00 TP24 QUALIFIED [id number] 2019 MEDICARE 00:00:00 BENEFICIARY Problems Condition Condition Condition Status Onset Resolution Last Treating Co mments Source Name Details Category Date Date Treatment Clinician Date Drug-induc Drug-induc Disease Active M ethodi ed 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 ICD10 Diagnosis Term Agility Instructor Utility Other and Other and Disease Active Uni vers unspecifie unspecifie 03-04 it y of d alcohol d alcohol [place] dependence 00 [place] Chest pain Chest pain Disease Active [facility] Suicidal Suicidal Disease Active Harri s ideation ideation Health Malingerin Malingerin Disease Active H arris g g Health Mood Mood Disease Active [place] disorder disorder Health Allergies, Adverse Reactions, Alerts Allergy Allergy Status Severity Reaction(s) Onset Inactive Treating Comm ents Source Name Type Date Date Clinician Ibuprofe Propensi Active Palpitations Univers n ty to 3-15 ity of adverse 00:00: [place] reaction 00 Medical s Branch IBUPROFE DRUG Active Palpitations Un kinsey N INGREDI 3-15 ity of 00:00: [place] 00 Medical Branch NO KNOWN Allergy Active [facility] Family History Family Member Diagnosis Comments Start Date Stop Date Source Natural father Bipolar disorder [facility] Natural mother Alcohol abuse [facility] Social History Social Habit Start Date Stop Date Quantity Comments Source Exposure to Not sure University of SARS-CoV-2 (event) [facility] History of tobacco Occasional [facility] use tobacco smoker Gender identity [facility] Sexual orientation [facility] History of Social 2022-11-23 2022-11-23 [facility] function 00:00:00 00:00:00 Hospital Alcohol intake 2022-11-21 2022-11-21 Current drinker [facility]o dist 00:00:00 00:00:00 of alcohol Hospital (finding) Cigarettes smoked 2016-09-10 2016-09-10 [facility] current (pack per 00:00:00 00:00:00 Hospita l day) - Reported Cigarette 2016-09-10 2016-09-10 Mandaen pack-years 00:00:00 00:00:00 Hospital Sex Assigned At [birth year] Mandaen 00:00:00 00:00:00 Hospital Smoking Status Start Date Stop Date Source Occasional tobacco smoker 2021-08-09 00:00:00 [facility] Smokes tobacco daily 2016-09-10 00:00:00 [facility] Medications Ordered Filled Start Stop Current Ordering Indication Dosage Frequency Signature Comments Components Source Medication Medication Date Date Medication? Clinician (SIG) Name Name diphenhydrA Yes Sleep 50mg Take 1 Mikey ris MINE 2-15 disturbance capsule by He alth (BENADRYL) 00:00: mouth 50 mg 00 nightly at capsule bedtime as needed for Sleep divalproex Yes Mood 1000mg Take 2 Mikey ris (DEPAKOTE) 2-15 disorder tablets by Health 500 mg 00:00: mouth at extended 00 bedtime release nightly tablet nicotine Yes Cigarette Chew and [place] polacrilex 2-15 nicotine park one H ealth (NICORETTE) 00:00: dependence piece of 2 mg Gum 00 without gum every complicatio 1-2 hours n as needed for nicotine cravings. multivitami 2015-06 Yes 1{tbl} Take 1 Un kinsey n tablet 1-01 tablet by ity of 00:00: mouth [place] 00 daily. Medical Branch acetaminoph 2015-06 Yes 650mg Take 2 Uni vers en 1-01 tablets by ity of (TYLENOL) 00:00: mouth [place] 325 mg 00 every 6 Medical tablet (six) Branch hours as needed for Pain (scale 1-3) or Pain (scale 4-6). multivitami 2015-06 Yes 1{tbl} Take 1 Un kinsey n tablet 1-01 tablet by ity of 00:00: mouth [place] 00 daily. Medical Branch acetaminoph 2015-06 Yes 650mg Take 2 Uni vers en 1-01 tablets by ity of (TYLENOL) 00:00: mouth [place] 325 mg 00 every 6 Medical tablet (six) Branch hours as needed for Pain (scale 1-3) or Pain (scale 4-6). multivitami 2015-06 Yes 1{tbl} Take 1 Un kinsey n tablet 1-01 tablet by ity of 00:00: mouth [place] 00 daily. Medical Branch acetaminoph 2015-06 Yes 650mg Take 2 Uni vers en 1-01 tablets by ity of (TYLENOL) 00:00: mouth [place] 325 mg 00 every 6 Medical tablet (six) Branch hours as needed for Pain (scale 1-3) or Pain (scale 4-6). multivitami 2015-06 Yes 1{tbl} Take 1 Un [...] Source Systolic blood 2021-09-18 11:00:00 109 [facility]Hg[facility] Diastolic blood 2021-09-18 11:00:00 75 mm[Hg] [facility] Heart rate 2021-09-18 11:00:00 59 /min [facility] Respiratory rate 2021-09-18 11:00:00 12 /min [facility] Oxygen saturation in 2021-09-18 11:00:00 100 /min [facility] Arterial blood by [facility] Pulse oximetry Branch Body temperature 2021-09-18 02:28:00 35.89 Melonie [facility] Body height 2021-09-18 02:28:00 165.1 cm [facility] [place] [facility] Body weight 2021-09-18 02:28:00 54.432 kg [facility] BMI 2021-09-18 02:28:00 19.97 kg/m2 [facility] HEIGHT 2021-08-09 08:53:00 165.1 cm WEIGHT 2021-08-09 08:53:00 57.607 kg HEIGHT 2021-08-09 08:53:00 165.1 cm WEIGHT 2021-08-09 08:53:00 57.607 kg Systolic blood 2019-02-18 06:30:00 102 mm[Hg] Univer sity of pressure [facility] Diastolic blood 2019-02-18 06:30:00 66 mm[Hg] Unive rsity of pressure [facility] Heart rate 2019-02-18 06:30:00 71 /min [facility] Respiratory rate 2019-02-18 06:30:00 18 /min [facility] Oxygen saturation in 2019-02-18 06:30:00 98 /min University of Arterial blood by [place] [facility] Pulse oximetry Branch Body temperature 2019-02-18 03:19:00 36.5 Melonie [facility] [place] [facility] Body height 2019-02-18 03:19:00 165.1 cm [facility] Body weight 2019-02-18 03:19:00 59.875 kg [facility] BMI 2019-02-18 03:19:00 21.97 kg/m2 [facility] Systolic blood 2019-02-18 06:30:00 102 mm[Hg] Univer sity [facility] [place] [facility] Diastolic blood 2019-02-18 06:30:00 66 mm[Hg] Unive rsity of pressure [facility] Heart rate 2019-02-18 06:30:00 71 /min [facility] Respiratory rate 2019-02-18 06:30:00 18 /min [facility] [place] [facility] Oxygen saturation in 2019-02-18 06:30:00 98 /min University of Arterial blood by [employer] ash Pulse oximetry Branch Body temperature 2019-02-18 03:19:00 36.5 Melonie [facility] [place] [facility] Body height 2019-02-18 03:19:00 165.1 cm [facility] Body weight 2019-02-18 03:19:00 59.875 kg [facility] BMI 2019-02-18 03:19:00 21.97 kg/m2 [facility] Systolic blood 2022-11-24 15:06:00 122 mm[Hg] [facility] pressure Diastolic blood 2022-11-24 15:06:00 78 mm[Hg] [facility] pressure Heart rate 2022-11-24 15:06:00 88 /min [facility] Body temperature 2022-11-24 15:06:00 36.78 Melonie [facility] Respiratory rate 2022-11-24 15:06:00 17 /min [facility] Oxygen saturation in 2022-11-24 15:06:00 99 /min [facility] Arterial blood by Pulse oximetry Body height 2022-11-21 18:54:00 165.1 cm [facility] [place] [facility] Body weight 2022-11-21 18:54:00 58.968 kg [facility] BMI 2022-11-21 18:54:00 21.63 kg/m2 [facility] Procedures Procedure Date / Time Performing Clinician Source Performed URINE CULTURE 2022-11-21 22:19:00 Franky Quinonez [facility] ospital COMPREHENSIVE METABOLIC 2022-11-21 22:19:00 Franky Quinonez [facility] PANEL CREATINE KINASE, TOTAL 2022-11-21 22:19:00 [facility]ALYS[facility] SCREEN AND 2022-11-21 22:19:00 Franky Quinonez [facility] MICROSCOPY, WITH REFLEX TO CULTURE ALCOHOL LEVEL, BLOOD 2022-11-21 22:19:00 [facility] [place] ACETAMINOPHEN LEVEL 2022-11-21 22:19:00 Franky Quinonez [facility] URINE DRUGS OF ABUSE 2022-11-21 22:19:00 Franky Quinonez [facility] SCREEN ESTIMATED GFR 2022-11-21 22:19:00 Franky Quinonez [facility] ospital SALICYLATE LEVEL 2022-11-21 22:19:00 [facility] - EXECUTIVE PROFILE 2022-11-21 22:19:00 [facility] PANEL VALPROIC ACID LEVEL 2022-11-21 22:19:00 Quinonez, [facility] COVID-19 QUALITATIVE 2022-11-21 21:14:00 [facility] [place] RT-PCR ECG 12-LEAD 2022-11-21 20:58:51 Devi [facility] ospital COMP. METABOLIC PANEL 2021-09-18 03:36:00 Juan C Meier [facility] ([id number]) [facility] SALICYLATE 2021-09-18 03:36:00 [facility] ETHANOL 2021-09-18 03:36:00 [facility] CBC WITH DIFF 2021-09-18 03:36:00 [facility] URINALYSIS 2021-09-18 03:36:00 [facility] COVID-19 (ID NOW RAPID 2021-09-18 03:36:00 Juan C Meier [facility] TESTING) [facility] URINE DRUG (IMMUNOASSAY) 2021-09-18 03:36:00 Juan C Meier [facility] - COMPREHENSIVE DRUG Medical Bra nc SCREEN W/O REFLEX CONSENT/REFUSAL FOR 2021-09-18 02:09:30 Doctor Unassigned, No Un [facility] DIAGNOSIS AND TREATMENT Name Medical Branch XR CHEST 1 VW 2019-02-18 03:59:16 Edenilson Granados [facility] THYROID STIMULATING 2019-02-18 03:57:00 Edenilson Granados [facility] HORMONE Medical Branch COMP. METABOLIC PANEL 2019-02-18 03:57:00 Edenilson Granados [facility] ([id number]) Medical Branch ACETAMINOPHEN 2019-02-18 03:57:00 Edenilson Granados [facility] ETHANOL 2019-02-18 03:57:00 Edenilson Granados [facility] CBC WITH DIFFERENTIAL 2019-02-18 03:57:00 Edenilson Granados [facility] sity [facility] URINALYSIS 2019-02-18 03:57:00 Edenilson Granados [facility] ADC / LCC - DRUG SCREEN 2019-02-18 03:57:00 Edenilson Granados [facility] EKG-12 LEAD 2019-02-18 03:31:24 Edenilson Granados [facility] Plan of Care Planned Activity Planned Date Details Comments Source Future Scheduled Test 2023-03-28 IMM Influenza Seasonal [facility] 00:00:00 (>/= 19 yrs) [code = IMM Influenza Seasonal (>/= 19 yrs)] Future Scheduled Test 1990 Imm Pneumococcal 0-64 [facility] 00:00:00 (1 - PCV) [code = Imm Pneumococcal 0-64 (1 - PCV)] Future Scheduled Test 1984 COVID-19 Vaccine (#1) [facility] 00:00:00 [code = COVID-19 Vaccine (#1)] Encounters Start End Encounter Admission Attending Care Care Encounter Source Date/Time Date/Time Type Type Clinicians Facility Department ID 2021-09-18 Outpatient [facility] [id number] [place] 06:10:41 [id number] [facility] 2022-11-21 2022-11-24 Emergency Devi, 1.2.840.1 [id number] Methodi 14:28:00 14:55:00 [facility] [address] 3.430.2.7 Hospit a .3.812321 l .8 2022-11-24 2022-11-24 Travel 1.2.840.1 [id number] [id number] Methodi 00:00:00 00:00:[address] 3.430.2.7 0.2.7.3.698 Ho spita .3.190653 084.8 l .8 2022-11-21 2022-11-24 [facility] [id number] [place] [address] 00:00:00 00:00:00 CAITY-XIMENA [address] 2022-11-21 2022-11-21 Travel 1.2.840.1 [id number] Methodi 00:00:00 00:00:[address] 3.430.2.7 0.2.7.3.698 Ho spita .3.514094 084.8 l .8 2022-02-13 2022-02-13 Outpatient [facility] [id number] Devoted 00:00:00 00:00:00 [id number] Medica l Group 2021-09-19 2021-09-19 Letter SANNA Munroe 1.2.840.114 [id number] Univers 00:00:00 00:00:00 (Out) Julita ROSE 350.1.13.10 it y of [facility] 4.2.7.2.686 Jaguar as [id number] [facility] 019 Branch 2021-09-17 2021-09-18 Emergency X [facility] ERT [id number] Univers 21:25:00 12:29:00 JUAN C lunsford of [facility] 2021-09-17 2021-09-18 Emergency [facility] 1.2.184.895 [id number] Univers 21:25:00 12:29:00 Juan C NESBITT 350.1.13.10 i ty of [place] 4.2.7.2.686 [facility] [id number] [facility] 084 Branch 2021-09-17 2021-09-17 Orders Doctor SANNA 1.2.840.114 [id number] Univers 00:00:00 00:00:00 Only Unassigned, ROSE 350.1.13.10 ity of [place] [facility] 4.2.7.2.686 Jaguar as [id number] [facility] 009 Branch 2021-08-09 2021-08-12 Inpatient [facility] [id number] [address] [place] [address] 12:52:00 18:40:00 Health 2021-08-09 2021-08-09 Emergency ER JUAN FOOTE SLE Emergency 20 [id number] [facility] 08:58:00 12:45:00 2021-08-08 2021-08-09 Emergency [facility] [id number] [place] 19:21:00 06:54:00 Beni SCHMIDT 2021-08-08 2021-08-08 Emergency [facility] [id number] [place] 17:53:56 18:02:46 Health 2021-08-08 2021-08-08 [facility] 064 [id number] [place] 00:00:00 00:00:00 [facility] 2019-02-17 2019-02-18 Emergency [facility] 1.2.557.401 [id number] 22:23:41 01:31:00 Edenilson A Wilmer 350.1.13.10 [place] 4.2.7.2.686 [place] [id number] 084 2019-02-17 2019-02-18 [facility] 1.2.521.548 [id number] [facility] 22:23:41 01:31:00 Edenilson A Wilmer 350.1.13.10 i ty of [place] 4.2.7.2.686 [facility] [id number] [facility] ash 084 Branch Results Test Description Test Time Test Comments Results Result Comments Source ECG 12 lead 2022-11-21 23:06:02 Test Item Value Reference Range Interpretation Comme nts Ventricular rate (test code = 253) 65 Atrial rate (test code = 255) 65 NV interval (test code = 266) 166 QRSD interval (test code = 260) 144 QT interval (test code = 264) 412 QTC interval (test code = 265) 428 P axis 1 (test code = 267) -52 QRS axis 1 (test code = 268) 89 T wave axis (test code = 270) 65 EKG impression (test code = 273) Unusual P axis, possible ectopic a trial rhythm-Right bundle branch block-Abnormal ECG-No previous ECGs available- Mandaen BobbiUrine [id number] 22:47:00 Test Item Value Reference Range Interpretation Comments Urine culture (test SEE COMMENT Bacteriu eunice screen code = 6084505) negative. Mandaen KuinrnccBHSX-XgC-1 (COVID-19) RNA [Presence] in Respiratory specimen by ARLYN with probe [id number] 19:12:41 Test Item Value Reference Range Interpretation Comments SARS-CoV-2 (COVID-19) RNA Not detected [Presence] in Respiratory specimen by ARLYN with probe detection (test code = 82741-8) Whether patient is employed in a Unknown healthcare setting (test code = 65822-0) Whether the patient has symptoms Unknown related to condition of interest (test code = 11148-5) Whether the patient was Unknown hospitalized for condition of interest (test code = 27168-1) Whether the patient was admitted Unknown to intensive care unit (ICU) for condition of interest (test code = 21843-2) Whether patient resides in a Unknown congregate care setting (test code = 62085-0) status (test code = Unknown 73958-1) Date and time of symptom onset Unknown (test code = 33319-1) ELADIO KAPOOR [id number] 04:20:56 Test Item Value Reference Range Interpretation Comments ALCOHOL (test code = <10 mg/dL 8699629311) DIYA (test code = DIYA) <10 Fanilbsb44-525 Toxic>100 Depression of [employer] [employer]>400 Fatalities Reported [facility] 04:18:06 Test Item Value Reference Range Interpretation Comments SALICYLATE (test code <10 mg/L = 6463555282) DIYA (test code = DIYA) Therapeutic Range: ? Analgesic and Antipyretic Use ? 20-100 mg/L ? ? Anti-Inflammatory Use ? 100-250 mg/L Toxic Range: ? Greater than 300 mg/L [facility]2022-03-24 04:18:00 Test Item Value Reference Range Interpretation Comments ACETAMINOP (test code = <10.0 10.0-30.0 L 4701079917) DIYA (test code = DIYA) Toxic: Greater than 200 ug/mL @ 4 hour post ingestion or greater than 50 ug/mL @ 12 hour post ingestion Lab Interpretation (test Abnormal code = 30752-8) [facility]OLIC PAN[facility] (33845)2021-09-18 04:15:25 Test Item Value Reference Range Interpretation Comments NA (test code = 136 mmol/L 135-145 0024218904) K (test code = 4.1 mmol/L 3.5-5.0 8678160000) CL (test code = 103 mmol/L 98-108 5408037752) CO2 TOTAL (test code = 29 mmol/L 23-31 6961432690) AGAP (test code = 2-16 9842730955) BUN (test code = 16 mg/dL 7-23 5718943214) GLUCOSE (test code = 69 mg/dL 70-110 L 1364573278) CREATININE (test code = 0.80 mg/dL 0.60-1.25 5558773477) TOTAL BILI (test code = 0.5 mg/dL 0.1-1.4 4337784119) CALCIUM (test code = 9.0 mg/dL 8.6-10.6 0372622043) T PROTEIN (test code = 6.5 g/dL 6.3-8.2 4321618119) ALBUMIN (test code = 4.0 g/dL 3.5-5.0 6707518399) ALK PHOS (test code = 87 U/L 34-122 5610647981) ALTv (test code = 21 U/L 5-50 1742-6) AST(SGOT) (test code = 31 U/L 13-40 9188544059) eGFR (test code = mL/min/1.73m2 5888396594) DIYA (test code = DIYA) Association of [...] tests). Lab Interpretation Abnormal (test code = 11504-6) [facility] WITH [id number] 03:59:43 Test Item Value Reference Range Interpretation Comments WBC (test code = See_Comment [Automated 9164-2) message] The sy stem which generated this result transmitted reference range : 4.20 - 10.70 10*3/?L. The reference range was not used to interpret this result as normal/abnormal . RBC (test code = See_Comment [Automated 634-8) message] The sy stem which generated this [...] RDW-SD (test code = 40.9 fL 38.5-51.6 96437-5) RDW-CV (test code = 12.4 % 12.1-15.4 788-0) PLT (test code = See_Comment [Automated 017-3) message] The sy stem which generated this result transmitted reference range : 150 - 328 10*3/ ?L. The reference r freddy was not used to interpret this result as normal/abnormal . MPV (test code = 9.5 fL 9.8-13.0 L 72884-4) NRBC/100 WBC (test See_Comment [Automat ed code = 2131717054) message] The system which generated this result transmitted reference range : 0.0 - 10.0 /100 WBCs. The refer ence range was not u sed to interpret th is result as normal/abnormal . NRBC x10^3 (test code <0.01 See_Comment [Auto mated = 4802084617) message] The s ystem which generated this result transmitted reference range : 10*3/?L. The reference range was not used to interpret this result as normal/abnormal . GRAN MAT (NEUT) % 62.3 % (test code = 770-8) IMM GRAN % (test code 0.30 % = 4957047123) LYMPH % (test code = 26.3 % 736-9) MONO % (test code = 8.4 % 5905-5) EOS % (test code = 2.1 % 713-8) BASO % (test code = 0.6 % 706-2) GRAN MAT x10^3(ANC) 4.09 10*3/uL 1.99-6.95 (test code = 9978752927) IMM GRAN x10^3 (test <0.03 0.00-0.06 code = 1124923559) LYMPH x10^3 (test code 1.73 10*3/uL 1.09-3.23 = 731-0) MONO x10^3 (test code 0.55 10*3/uL 0.36-1.02 = 742-7) EOS x10^3 (test code = 0.14 10*3/uL 0.06-0.53 711-2) BASO x10^3 (test code 0.04 10*3/uL 0.01-0.09 = 704-7) Lab Interpretation Abnormal (test code = 89731-8) [facility]OV[facility]) 2021-08-09 15:17:01 Test Item Value Reference Range Interpretation Comments SARS-COV2/RT-PCR (test Negative Not Detected, Negative, code = 1865612) See external report for linked test SARS-COV-2 PERFORMING LAB [facility] SLY (test code = 2725517) Negative result for this test determines that [...] of the Act.Fact Sheet for Healthcare Prov iders:https://www.Codasystem.ReadyDock/sites/default/files/product/documents/Fact_Sheet_HC _Hovprovcr_Mijx_XBQM-NmK-2.pdfFact Sheet for Healthcare Patients:https://www.Codasystem.ReadyDock/sites/default/files/product/docume nts/Sobq_Anwfm_Uveaiwqq_Epju_GFCC-HvT-7.pdfPerforming Laboratory:[facility], [place] [address]GUYDMLTJDE LEVEL 2021-08-09 12:53:37 Test Item Value Reference Range Interpretation Comments SALICYLATE LEVEL (BEAKER) (test code < mg/dL 15.0-30.0 L = 764) Therapeutic Range: 15.0-30.0 mg/dLToxic: >30.0 mg/dL Lethal: >70.0 mg/dL RAPID DRUG SCREEN, [id number] 11:08:48 Test Item Value Reference Range Interpretation [...] ng/mLOpiate 300 ng/mLMethadone 300 ng/mLAmphetamine/ 1000 ng/mL MethamphetamineThisassay provides an unconfirmed qualitative test result for the clinical management of patients in emergency situations. Chain of custody not maintained. Some zbsq-ljp-vwllxiz medications, as well as adulterants, may cause inaccurate results. Clinical correlation should be applied. A more comprehensive drug screen or confirmation of a detected drug may be performed upon request.Sports Team Manager ID - [auto]Sports Team Manager ID - MARVA MOperator ID - techCOMPREHENSIVE METABOLIC [id number] 10:50:53 Test Item Value Reference Range Interpretation [...] S NOT APPLICABLE FOR DIALYSIS PATIEN TS. Sports Team Manager ID - MARVA MACETAMINOPHEN [id number] 10:50:53 Test Item Value Reference Range Interpretation Comments ACETAMINOPHEN LEVEL (BEAKER) (test < ug/mL 10.0-30.0 L code = 344) Therapeutic Range: 10.0-30.0 g/mLToxic Levels: >200.0 g/mLOperator ID - MARVA [id number] 10:48:12 Test Item Value Reference Range Interpretation Comments ETHANOL (BEAKER) < mg/dL See_Comment [Automated message] The (test code = 400) system E-Sign generated this result tra nsmitted reference range : <=10. The reference r freddy was not used to int erpret this result as normal/abnormal . Sports Team Manager ID - MARVA MCBC W/PLT COUNT & AUTO [id number] 10:30:51 Test Item Value Reference Range Interpretation Comments WHITE BLOOD CELL COUNT (BEAKER) 8.4 K/ L 3.5-10.5 (test code = 035) RED BLOOD CELL COUNT (BEAKER) 5.30 M/ [...] = 2801) RAD, CHEST, 1 VIEW, NON [id number] 10:30:00Reason for exam:->MENTAL HEALTH PROBLEMShould this be performed at the bedside?->Yes [facility] LISSETTE CROWE : 1985 Sex: MFINALREPORT RAD, CHEST, 1 VIEW, NON DEPT TECHNIQUE: Frontal view(s) of the chest. INDICATION: MENTAL HEALTH PROBLEM COMPARISON: None FINDINGS/IMPRESSION: Lines/Tubes: None Lungs/pleura:No focal consolidation or interstitial pulmonary edema. No pleural effusion. No pneumothorax. Heart and Mediastinum: Unremarkable. Soft Tissues and Bones: Unremarkable. Signed: Main [place] MDReport Verified Date/Time: 08/09/2021 10:30:08 Reading Location: [address] [facility] Reading Room THYROID STIMULATING [id number] 05:13:00 Test Item Value Reference Range Interpretation Comments TSH (test code = See_Comment [Automated message] [id number]) The system [employer] generated this result transmitted ref erence range: 0.45 - 4 .70 mIU/L. The refe rence range was not u sed to interpret this result as normal/abnor mal. Lab Interpretation (test Normal code = 07771-7) [facility] [id number] 04:50:15 No acute cardiopulmonary abnormality. IRamona MD., [...] reviewed this study and agree with the abovereport.[facility]2019-08-24 04:46:00 Test Item Value Reference Range Interpretation Comments ACETAMINOP (test code = <10.0 10-30 L 8163565716) DIYA (test code = DIYA) Toxic: Greater than 200 ug/mL @ 4 hour post ingestion or greater than 50 ug/mL @ 12 hour post ingestion Lab Interpretation (test Abnormal code = 45574-0) [facility] 04:46:00 Test Item Value Reference Range Interpretation Comments ALCOHOL (test code = <10 mg/dL 7092123981) DIYA (test code = DIYA) <10 Adrmxfag92-435 Toxic>100 Depression of [employer]>400 Fatalities Reported [facility]. METABOLIC PANEL (75734)2019-02-18 04:43:00 Test Item Value Reference Range Interpretation Comments NA (test code = 142 mmol/L 135-145 3869526185) K (test code = 4.0 mmol/L 3.5-5 3421253835) CL (test code = 107 mmol/L 98-108 9300262930) CO2 TOTAL (test code = 24 mmol/L 23-31 0486411022) AGAP (test code = 2-16 6171218751) BUN (test code = 16 mg/dL 7-23 0424798818) GLUCOSE (test code = 105 mg/dL 70-110 0227756347) CREATININE (test code 0.74 mg/dL 0.6-1.25 = 9133787748) TOTAL BILI (test code 0.3 mg/dL 0.1-1.1 = 1181250315) CALCIUM (test code = 9.5 mg/dL 8.6-10.6 1106983901) T PROTEIN (test code = 7.0 g/dL 6.3-8.2 1481179438) ALBUMIN (test code = 4.3 g/dL 3.5-5 3546342471) ALK PHOS (test code = 97 U/L 34-122 5561351890) ALT(SGPT) (test code = 16 U/L 9-51 6518944659) AST(SGOT) (test code = 18 U/L 13-40 7896149485) eGFR Calculation mL/min/1.73m2 (Non-) (test code = 0894848040) eGFR Calculation mL/min/1.73m2 () (test code = 9507830192) DIYA (test code = DIYA) Association of [...] or urine or abnormalities in imaging tests). [facility] [id number] 04:22:00 Test Item Value Reference Range Interpretation Comments APPEARANCE (test code Slightly Cloudy Clear A = 9198224587) COLOR (test code = Yellow Yellow 9694777107) PH (test code = 4.8-8.0 5311577368) SP GRAVITY (test code 1.003-1.030 = 5000760509) GLU U QUAL (test code Negative Negative = 8837987125) BLOOD (test code = Negative Negative 7621989413) KETONES (test code = Negative Negative 7922021474) PROTEIN (test code = Negative Negative 2887-8) UROBILIN (test code = 0.2 mg/dL See_Comment [Auto mated 1381203828) message] The system which generated this result transmit pao reference range : 0-1.0 mg/dL. Th e reference range was not used to interpret this result as normal/abnormal . BILIRUBIN (test code Negative Negative = 2991445111) NITRITE (test code = Negative Negative 5708138304) LEUK LYNN (test code Negative Negative = 2349800505) RBC/HPF (test code = See_Comment [Autom ated 4520468731) message] The system which generated this result transmit pao reference range : 0 - 3 HPF. The reference range was not used to interpret this result as normal/abnormal . WBC/HPF (test code = See_Comment [Autom ated 1913019455) message] The system which generated this result transmit pao reference range : 0 - 5 HPF. The reference range was not used to interpret this result as normal/abnormal . BACTERIA (test code = Few Negative A 8005810602) AMORPHOUS (test code Moderate HPF = 7392935528) Lab Interpretation Abnormal (test code = 12516-1) [facility] / [facility] - DRUG SCREEN [id number] 04:21:00 Test Item Value Reference Range Interpretation Comments BENZO U (test code = Negative Negative 6766317714) VENKATESH U (test code = Negative Negative 0295209801) AMPHET (test code = Negative Negative 5774376675) THC (test code = Negative Negative 6274346772) METHADONE (test code = Negative Negative 8964062876) Meth U (test code = Negative Negative 0719361462) OPIATES (test code = Negative Negative 2165849686) Cocaine Metabolite (test Negative Negative code = 2243858943) PROPOXY (test code = Negative Negative 6311176888) Tric U (test code = Negative Negative 7498262382) PCP (test code = Negative Negative 0703817829) OXYCOD (test code = Negative Negative 3724927359) DIYA (test code = DIYA) Urine Drug [...] testing). Lab Interpretation (test Normal code = 06210-6) [facility] WITH [id number] 04:08:00 Test Item Value Reference Range Interpretation Comments WBC (test code = See_Comment [Automated 3205-2) message] The sy stem which generated this result transmitted reference range : 4.20 - 10.70 10*3/?L. The reference range was not used to interpret this result as normal/abnormal . RBC (test code = See_Comment [Automated 284-8) message] The sy stem which generated this [...] RDW-SD (test code = 43.0 fL 38.5-51.6 81248-3) RDW-CV (test code = 12.9 % 12.1-15.4 788-0) PLT (test code = See_Comment [Automated 987-3) message] The sy stem which generated this result transmitted reference range : 150 - 328 10*3/ ?L. The reference r freddy was not used to interpret this result as normal/abnormal . MPV (test code = 9.7 fL 9.8-13 L 93211-1) NRBC/100 WBC (test See_Comment [Automat ed code = 1112494933) message] The system which generated this result transmitted reference range : 0.0 - 10.0 /100 WBCs. The refer ence range was not u sed to interpret th is result as normal/abnormal . NRBC x10^3 (test code <0.01 See_Comment [Auto mated = 2808275694) message] The s ystem which generated this result transmitted reference range : 10*3/?L. The reference range was not used to interpret this result as normal/abnormal . GRAN MAT (NEUT) % 57.3 % (test code = 770-8) IMM GRAN % (test code 0.40 % = 8939031846) LYMPH % (test code = 32.4 % 736-9) MONO % (test code = 8.7 % 5905-5) EOS % (test code = 0.8 % 713-8) BASO % (test code = 0.4 % 706-2) GRAN MAT x10^3(ANC) 4.21 10*3/uL 1.99-6.95 (test code = 2014809790) IMM GRAN x10^3 (test 0.03 10*3/uL 0-0.06 code = 7742439685) LYMPH x10^3 (test code 2.38 10*3/uL 1.09-3.23 = 731-0) MONO x10^3 (test code 0.64 10*3/uL 0.36-1.02 = 742-7) EOS x10^3 (test code = 0.06 10*3/uL 0.06-0.53 711-2) BASO x10^3 (test code 0.03 10*3/uL 0.01-0.09 = 704-7) Lab Interpretation Abnormal (test code = 37455-2) [facility]"
--- NOTE | 2023-01-04 12:20 | ER ---
Nurse's Notes [facility] Name: Osvaldo Crowe Age: 37 yrs Sex: Male : 1985 Arrival Date: 01/04/2023 Time: 11:25 Bed Waiting Private MD: Diagnosis: Presentation: 01/04 12:15 Note CALLED TWICE WITH NO RESPONSE. cm10 ED Course: 11:27 Patient arrived in ED. mr 11:28 Olga Pendleton PA-C is PHCP. sb4 11:28 Max Cheek MD is Attending Physician. sb4 Administered Medications: No medications were administered Outcome: 12:20 Patient left the ED. cm10 Signatures: Patricia Laoz mr Olga Pendleton PA-C PA-C sb4 Pearl Tillman RN RN cm10
== END 2023-01-04 12:20 | disposition left against medical advice (07) ==
LOC: ER 11:25
DX: Z02.9 Encounter for administrative examinations, unspecified (principal)

== ENCOUNTER 2023-02-10 01:07 | Emergency (ER) | payer OTHER ==
--- OUTSIDE RECORDS SUMMARY | 2023-02-10 01:12 | XMS REPORT | Continuity of Care Document ---
:1985 Author Organization [facility] t Address [address] [facility] [address]. [address] [place] [address] Care Team Providers Name Role Phone Asked, No Pcp Primary Care Physician Unavailable Devi PEÑA, [facility] Attending Clinician Ludwig CISSE, Julita T Attending Clinician Unavailable JUAN C MEIER Attending Clinician Unavailable Juan C Meier DO Attending Clinician Doctor Unassigned, [place] Attending Clinician Unavailable JUAN FOOTE Attending Clinician Unavailable BLOSSOM LEIGH Attending Clinician Unavailable Edenilson Mendoza Attending Clinician MD [facility] Admitting Clinician Unavailable Payers Payer Name Policy Type Policy Number Effective Date Expiration Date S [facility] [id number] 2022 (MEDICARE 00:00:00 REPLACEMENT HMO) UHC MEDICARE [id number] 2021 2022 COMPLETE OON 00:00:00 00:00:00 TP24 QUALIFIED [id number] 2019 MEDICARE 00:00:00 BENEFICIARY Problems Condition Condition [...] different from the original. 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 Other and Other and Disease Active Uni vers unspecifie unspecifie 03-04 it y of d alcohol d [place] 00 [facility] Chest pain Chest pain Disease Active H [...] N INGREDI 3-15 ity of 00:00: [place] [facility] NO KNOWN Allergy Active [facility] Family History Family Member Diagnosis Comments Start Date Stop Date Source Natural father Bipolar disorder [facility] Natural mother Alcohol abuse [facility] Social History Social Habit Start Date Stop Date Quantity Comments Source Exposure to Not sure University of SARS-CoV-2 (event) [facility] Gender identity [facility] Sexual orientation [facility] History of tobacco Cigarette Smoker [facility] use History of Social 2022-11-23 2022-11-23 [facility] function 00:00:00 00:00:00 Hospital Alcohol intake 2022-11-21 2022-11-21 Current drinker [facility] 00:00:00 00:00:00 of alcohol Hospital (finding) Cigarettes smoked 2016-09-10 2016-09-10 [facility] current (pack per 00:00:00 00:00:00 Hospita l day) - Reported Cigarette 2016-09-10 2016-09-10 [facility] pack-years 00:00:00 00:00:00 Hospital Sex Ass[birth year] At [birth year] TRISHA Rivera 00:00:00 00:00:00 [facility] Smoking Status Start Date Stop Date Source Occasional tobacco smoker 2021-08-09 00:00:00 [facility] Unknown if ever smoked [facility] Smokes tobacco daily 2016-09-10 00:00:00 [facility] Medications Ordered Filled Start Stop Current Ordering Indication Dosage Frequency Signature Comments Components Source Medication Medication Date Date Medication? Clinician (SIG) Name Name diphenhydrA Yes Sleep 50mg Take 1 Mikey ris MINE 2-15 disturbance capsule by Jonathan rogers (BENADRYL) 00:00: mouth 50 mg 00 nightly [...] hours n as needed for nicotine cravings. diphenhydrA Yes Sleep 50mg Take 1 Mikey [...] 00:00: mouth [place] 00 daily. [facility] 2015[facility]06 Yes 650mg Take 2 Uni vers en 1-01 tablets by ity of (TYLENOL) 00:00: mouth [place] 325 mg 00 every 6 Medical tablet (six) Branch hours as needed for Pain (scale 1-3) or Pain (scale 4-6). multivitami 2015-06 Yes 1{tbl} Take 1 Un kinsey n tablet 1-01 tablet by ity of 00:00: mouth [place] 00 daily. [facility] Yes 650mg Take 2 Uni vers en 1-01 tablets by ity of (TYLENOL) 00:00: mouth [place] 325 mg 00 every 6 Medical tablet (six) Branch hours as needed for Pain (scale 1-3) or Pain (scale 4-6). multivitami 2015-06 Yes 1{tbl} Take 1 Un kinsey n tablet 1-01 tablet by ity of 00:00: mouth [place] 00 daily. [facility] Yes 650mg Take 2 Uni vers en 1-01 tablets by ity of (TYLENOL) 00:00: mouth [place] 325 mg 00 every 6 Medical tablet (six) Branch hours as needed for Pain (scale 1-3) or Pain (scale 4-6). multivitami 2015-06 Yes 1{tbl} Take 1 Un kinsey n tablet 1-01 tablet by ity of 00:00: mouth [place] 00 daily. [facility] Yes 650mg Take 2 Uni [...] 11:00:00 109 mm[Hg] Univer sity of pressure [facility] Diastolic blood 2021-09-18 11:00:00 75 mm[Hg] Unive rsity of pressure [facility] Heart rate 2021-09-18 11:00:00 59 /min [facility]i [facility] Respiratory rate 2021-09-18 11:00:00 12 /min Univ ersity of [facility] Oxygen saturation in 2021-09-18 11:00:00 100 /min University of Arterial blood by [place] [employer] ash Pulse oximetry Branch Body temperature 2021-09-18 02:28:00 35.89 Melonie Univ ers[facility] Body height 2021-09-18 02:28:00 165.1 cm [facility] Body weight 2021-09-18 02:28:00 54.432 kg [facility] BMI 2021-09-18 02:28:00 19.97 kg/m2 [facility] HEIGHT 2021-08-09 08:53:00 165.1 cm WEIGHT 2021-08-09 08:53:00 57.607 kg HEIGHT 2021-08-09 08:53:00 165.1 cm WEIGHT 2021-08-09 08:53:00 57.607 kg Systolic blood 2019-02-18 06:30:00 102 mm[Hg] Univer sity of [facility] Diastolic blood 2019-02-18 06:30:00 66 mm[Hg] Unive rsity of [facility] Heart rate 2019-02-18 06:30:00 71 /min [facility] Respiratory rate 2019-02-18 06:30:00 18 /min Univ ers[facility] Oxygen saturation in 2019-02-18 06:30:00 98 /min University of Arterial blood by [place] [employer] ash Pulse oximetry Branch Body temperature 2019-02-18 03:19:00 36.5 Melonie Univ [facility] Body height 2019-02-18 03:19:00 165.1 cm [facility] Body weight 2019-02-18 03:19:00 59.875 kg [facility] BMI 2019-02-18 03:19:00 21.97 kg/m2 [facility] Systolic blood 2019-02-18 06:30:00 102 mm[Hg] Univer sity of pressure [facility] Diastolic blood 2019-02-18 06:30:00 66 mm[Hg] Unive rsity of [facility] Heart rate 2019-02-18 06:30:00 71 /[facility] 2019-02-18 06:30:00 18 /min [facility] Oxygen saturation in 2019-02-18 06:30:00 98 /min University Arterial blood by [facility] Pulse oximetry [place] Body temperature 2019-02-18 03:19:00 36.5 Melonie [facility] Body height 2019-02-18 03:19:00 165.1 cm [facility] Body weight 2019-02-18 03:19:00 59.875 kg [facility] BMI 2019-02-18 03:19:00 21.97 kg/m2 [facility] Systolic blood 2022-11-24 15:06:00 122 mm[Hg] [facility] pressure Diastolic blood 2022-11-24 15:06:00 78 mm[Hg] [facility] pressure Heart rate 2022-11-24 15:06:00 88 /min [facility] Body temperature 2022-11-24 15:06:00 36.78 Melonie [facility] Respiratory rate 2022-11-24 15:06:00 17 /min [facility] Oxygen saturation in 2022-11-24 15:06:00 99 /min [facility] Arterial blood by Pulse oximetry Body height 2022-11-21 18:54:00 165.1 cm [facility] Body weight 2022-11-21 18:54:00 58.968 kg [facility] BMI 2022-11-21 18:54:00 21.63 kg/m2 [facility] Procedures Procedure Date / Time Performing Clinician Source Performed URINALYSIS SCREEN AND 2022-11-21 22:19:00 Franky Quinonez [facility] MICROSCOPY, WITH REFLEX TO CULTURE ALCOHOL LEVEL, BLOOD 2022-11-21 22:19:00 Franky Quinonez [facility] ACETAMINOPHEN LEVEL 2022-11-21 22:19:00 [facility] URINE DRUGS OF ABUSE 2022-11-21 22:19:00 Cr [facility] SCREEN ESTIMATED GFR 2022-11-21 22:19:00 [facility] SALICYLATE LEVEL 2022-11-21 22:19:00 [facility] - EXECUTIVE PROFILE 2022-11-21 22:19:00 Cr Quinonezh Met [facility] PANEL VALPROIC ACID LEVEL 2022-11-21 22:19:00 [facility]ity [facility] URINE CULTURE 2022-11-21 22:19:00 [facility] COMPREHENSIVE METABOLIC 2022-11-21 22:19:00 [facility] PANEL CREATINE KINASE, TOTAL 2022-11-21 22:19:00 Franky Quinonez [facility] (CPK) COVID-19 QUALITATIVE 2022-11-21 21:14:00 Cr [facility]zFormerly [facility] RT-PCR ECG 12-LEAD 2022-11-21 20:58:51 [facility] COMP. METABOLIC PANEL 2021-09-18 03:36:00 [facility] ([id number]) [facility] SALICYLATE 2021-09-18 03:36:00 Singer [facility] ETHANOL 2021-09-18 03:36:00 Singer [facility] CBC WITH DIFF 2021-09-18 03:36:00 Singer [facility] URINALYSIS 2021-09-18 03:36:00 Singer [facility] COVID-19 (ID NOW RAPID 2021-09-18 03:36:00 Juan [facility]The [facility] [place] [facility] (IMMUNOASSAY) 2021-09-18 03:36:00 Juan C Meier [facility] - COMPREHENSIVE DRUG Medical Bra nch SCREEN W/O REFLEX CONSENT/REFUSAL FOR 2021-09-18 02:09:30 Doctor Unassigned, No Un [facility] DIAGNOSIS AND TREATMENT Name Medical Branch XR CHEST 1 VW 2019-02-18 03:59:16 Edenilson Granados [facility] THYROID STIMULATING 2019-02-18 03:57:00 Edenilson Granados [facility] HORMONE [facility] COMP. METABOLIC PANEL 2019-02-18 03:57:00 Edenilson Granados [facility] ([id number]) [facility] ACETAMINOPHEN 2019-02-18 03:57:00 Edenilson Granados [facility] ETHANOL 2019-02-18 03:57:00 Edenilson Granados [facility] CBC WITH DIFFERENTIAL 2019-02-18 03:57:00 Edenilson [facility] URINALYSIS 2019-02-18 03:57:00 Edenilson Granados [facility] ADC / LCC - DRUG SCREEN 2019-02-18 03:57:00 Edenilson Granados [facility] TRIAGE [facility] EKG-12 LEAD 2019-02-18 03:31:24 Edenilson Granados [facility] Plan of Care Planned Activity Planned Date Details Comments Source Future Scheduled 2023-03-28 IMM Influenza [facility]al [facility] Test 00:00:00 (>/= 19 yrs) [code = IMM Influenza Seasonal (>/= 19 yrs)] Future Scheduled 2023-03-28 IMM Influenza Seasonal [facility] Test 00:00:00 (>/= 19 yrs) [code = IMM Influenza Seasonal (>/= 19 yrs)] Future Scheduled 2023-02-26 Influenza Vaccine (#1) [facility] 00:[facility]00 [code = Influenza Vaccine [facility] Center (#1)] Future Scheduled 2022-06-29 MEDICARE ANNUAL WELLNESS [facility] Test 00:00:00 (YEAR 2 or FIRST YEAR if Med ical Center no IPPE) [code = MEDICARE ANNUAL WELLNESS (YEAR 2 or FIRST YEAR if no IPPE)] Future Scheduled 2022-06-[address] [facility] Test 00:00:00 (12+) [code = DEPRESSION Med ical Center SCREENING (12+)] Future Scheduled 2019 Lipid panel (procedure) [facility] Test 00:00:00 [code = 58984780] Medical Ce nter Future Scheduled 2003 DTAP/TDAP/TD VACCINES ([address] [facility] Test 00:00:00 - Tdap) [code = Medical Cent er DTAP/TDAP/TD VACCINES (1 - Tdap)] Future Scheduled 2002 HEPATITIS C SCREENING [facility] Test 00:00:00 [code = HEPATITIS C Medical Center SCREENING] Future Scheduled [address] [facility] Test 00:00:00 virus screening Medical Cent er (procedure) [code = 844999947] Future Scheduled [address] [facility] Test 00:00:00 Counseling and Screening Med [facility] Center (12+) [code = Tobacco Cessation Counseling and Screening (12+)] Future Scheduled 1990 Imm Pneumococcal 0-64 (1 [facility] Test 00:00:00 - PCV) [code = Imm Pneumococcal 0-64 (1 - PCV)] Future Scheduled 1990 Imm Pneumococcal 0-64 (1 [facility] Test 00:00:00 - PCV) [code = Imm Pneumococcal 0-64 (1 - PCV)] Future Scheduled 1984 COVID-19 Vaccine (#1) [facility] Test 00:00:00 [code = COVID-19 Vaccine (#1)] Future Scheduled 1984 COVID-19 VACCINE (#1) [facility] Test 00[facility]00:00 [code = COVID-19 VACCINE Med ical Center (#1)] Future Scheduled 1984 COVID-19 Vaccine (#1) [facility] Test 00:00:00 [code = COVID-19 Vaccine (#1)] Encounters Start End Encounter Admission Attending Care Care Encounter Source Date/Time Date/Time Type Type Clinicians Facility Department ID 2021-09-18 Outpatient [facility] [id number] [place] 06:10:41 [id number] Health 2022-11-21 2022-11-24 Emergency Quinonez, 1.2.840.1 [id number] Methodi 14:28:00 14:55:[address] [facility] [address] [facility] 3.430.2.7 Hospit a .3.611359 l .8 2022-11-24 2022-11-24 Travel 1.2.840.1 1.2.241.247 [id number] Methodi 00:00:00 00:00:[address] 3.430.2.7 0.2.7.3.698 Ho spita .3.734209 084.8 l .8 2022-11-24 2022-11-24 Travel 1.2.840.1 1.2.011.523 [id number] Methodi 00:00:00 00:00:[address] 3.430.2.7 0.2.7.3.698 Ho spita .3.193253 084.8 l .8 2022-11-21 2022-11-[address] [facility] [id number] [place] [address] 00:00:00 00:00:00 [facility] [address] 2022-11-21 2022-11-21 Travel 1.2.840.1 1.2.870.891 [id number] Methodi 00:00:00 00:00:[address] 3.430.2.7 0.2.7.3.698 Ho spita .3.566464 084.8 l .8 2022-11-21 2022-11-21 Travel 1.2.840.1 1.2.515.476 [id number] Methodi 00:00:00 00:00:[address] 3.430.2.7 0.2.7.3.698 Ho spita .3.041592 084.8 l .8 2022-02-13 2022-02-13 Outpatient [facility] [id number] [facility]oted 00:00:00 00:00:00 [id number] Medica l Group 2021-09-19 2021-09-19 SANNA Cruz 1.2.840.114 [id number] Univers 00:00:00 00:00:00 (Out) Julita Coello ROSE 350.1.13.10 it y of [facility] 4.2.7.2.686 Jaguar as [id number] [facility] 019 Branch 2021-09-17 2021-09-18 Emergency X [facility] ERT [id number] Univers 21:25:00 12:29:00 JUAN C isatu of [facility] 2021-09-17 2021-09-18 Emergency [facility] 1.2.244.709 [id number] Univers 21:25:00 12:29:00 Juan C NESBITT 350.1.13.10 i ty [facility] 4.2.7.2.686 [facility] [phone] [facility] 084 Branch 2021-09-17 2021-09-17 Orders Doctor SANNA 1.2.840.114 [id number] Univers 00:00:00 00:00:00 Only Unassigned, ROSE 350.1.13.10 ity of [facility] 4.2.7.2.686 Jagu[place] as [id number] [facility] 009 Branch 2021-08-09 2021-08-12 Inpatient [facility] [id number] [place] 12:52:00 18:40:[address] [facility] 2021-08-09 2021-08-09 Emergency ER JUAN FOOTE [facility] Emergency 20 [id number] [facility] 08:58:00 12:45:00 2021-08-08 2021-08-09 Emergency FRANCHESKA [facility] [id number] [place] 19:21:00 06:54:00 SCHMIDT, [facility] BLOSSOM 2021-08-08 2021-08-08 Emergency [facility] [id number] [place] 17:53:56 18:02:[address] [facility] 2021-08-08 2021-08-08 [facility]64 [id number] [place] 00:00:00 00:00:00 [facility] 2019-02-17 2019-02-18 [facility] 1.2.969.697 [id number] 22:23:41 01:31:00 Edenilson Nesbitt 350.1.13.10 [place] 4.2.7.2.686 [place] [id number] 2019-02-17 2019-02-18 Emergency Darwin, [facility] 1.2.044.308 [id number] [facility] 22:23:41 01:31:00 Edenilson Nesbitt 350.1.13.10 i ty of [place] 4.2.7.2.686 [facility] [place] [id number] [facility] ash 084 Branch Results Test Description Test Time Test Comments Results Result Comments Source ECG 12 lead 2022-11-21 23:06:02 Test Item Value Reference Range Interpretation Comme nts Ventricular rate (test code = 253) 65 Atrial rate (test code = 255) 65 OH interval (test code = 266) 166 QRSD [...] bundle branch block-Abnormal ECG-No previous ECGs available- [facility] 12 [id number] 23:06:02 Test Item Value Reference Range Interpretation Comments Ventricular rate (test 65 code = 253) Atrial rate (test code = 65 255) OH interval (test code = 166 266) QRSD interval (test code 144 = 260) QT interval (test code = 412 264) QTC interval (test code 428 = 265) P axis 1 (test code = -52 267) QRS axis 1 (test code = 89 268) T wave axis (test code = 65 270) EKG impression (test Unusual P axis, code = 273) possible ectopic atrial rhythm-Right bundle branch block-Abnormal ECG-No previous ECGs available-Electronica lly Signed By Tulio Patrick MD ([id number]) on 11/21/2022 6:05:57 PM [facility] [id number] 22:47:00 Test Item Value Reference Range Interpretation Comments Urine culture (test SEE COMMENT Bacteriu eunice screen code = 4492220) negative. [facility]2023-05-27 22:47:00 Test Item Value Reference Range Interpretation Comments Urine culture (test SEE COMMENT Bacteriu eunice screen code = 9105922) negativeJuanis SladeARS-CoV-2 (COVID-19) RNA [Presence] in Respiratory specimen by ARLYN with probe [id number] 19:12:41 Test Item Value Reference Range Interpretation Comments SARS-CoV-2 (COVID-19) RNA Not detected [Presence] in Respiratory specimen by ARLYN with probe detection (test code = 59342-5) Whether patient is employed in a Unknown healthcare setting (test code = 72612-2) Whether the patient has symptoms Unknown related to condition of interest (test code = 83224-8) Whether the patient was Unknown hospitalized for condition of interest (test code = 39863-1) Whether the patient was admitted Unknown to intensive care unit (ICU) for condition of interest (test code = 91188-3) Whether patient resides in a Unknown congregate care setting (test code = 74654-2) status (test code = Unknown 29460-0) Date and time of symptom onset Unknown (test code = 80788-2) ELADIO KAPOOR [id number] 04:20:56 Test Item Value Reference Range Interpretation Comments ALCOHOL (test code = <10 mg/dL 9190010013) DIYA (test code = DIYA) <10 Rknpchmo23-018 Toxic>100 Depression of SENIOR DESIGN ENGINEERING SPECIALIST>400 [facility] 04:18:06 Test Item Value Reference Range Interpretation Comments SALICYLATE (test code <10 mg/L = 7061017893) DIYA (test code = DIYA) Therapeutic Range: ? Analgesic and Antipyretic Use ? 20-100 mg/L ? ? Anti-Inflammatory Use ? 100-250 mg/L Toxic Range: ? Greater than 300 mg/L [facility]24 04:18:00 Test Item Value Reference Range Interpretation Comments ACETAMINOP (test code = <10.0 10.0-30.0 L 2072316987) DIYA (test code = DIYA) Toxic: Greater than 200 ug/mL @ 4 hour post ingestion or greater than 50 ug/mL @ 12 hour post ingestion Lab Interpretation (test Abnormal code = 85936-4) [facility]. METABOLIC PANEL (25612)2021-09-18 04:15:25 Test Item Value Reference Range Interpretation Comments NA (test code = 136 mmol/L 135-145 8685310248) K (test code = 4.1 mmol/L 3.5-5.0 9914442750) CL (test code = 103 mmol/L 98-108 5747416581) CO2 TOTAL (test code = 29 mmol/L 23-31 1056271026) AGAP (test code = 2-16 7467494315) BUN (test code = 16 mg/dL 7-23 6051129637) GLUCOSE (test code = 69 mg/dL 70-110 L 3300679913) CREATININE (test code = 0.80 mg/dL 0.60-1.25 2932752751) TOTAL BILI (test code = 0.5 mg/dL 0.1-1.4 5307842308) CALCIUM (test code = 9.0 mg/dL 8.6-10.6 6970764171) T PROTEIN (test code = 6.5 g/dL 6.3-8.2 1069465399) ALBUMIN (test code = 4.0 g/dL 3.5-5.0 3118551402) ALK PHOS (test code = 87 U/L 34-122 2194422463) ALTv (test code = 21 U/L 5-50 1742-6) AST(SGOT) (test code = 31 U/L 13-40 8850957338) eGFR (test code = mL/min/1.73m2 1709202133) DIYA (test code = DIYA) Association of [...] tests). Lab Interpretation Abnormal (test code = 78528-5) [facility] WITH [id number] 03:59:43 Test Item Value Reference Range Interpretation Comments WBC (test code = See_Comment [Automated 2137-2) message] The sy stem which generated this result transmitted reference range : 4.20 - 10.70 10*3/?L. The reference range was not used to interpret this result as normal/abnormal . RBC (test code = See_Comment [Automated 111-8) message] The sy stem which generated this [...] RDW-SD (test code = 40.9 fL 38.5-51.6 67398-0) RDW-CV (test code = 12.4 % 12.1-15.4 788-0) PLT (test code = See_Comment [Automated 909-3) message] The sy stem which generated this result transmitted reference range : 150 - 328 10*3/ ?L. The reference r freddy was not used to interpret this result as normal/abnormal . MPV (test code = 9.5 fL 9.8-13.0 L 17757-7) NRBC/100 WBC (test See_Comment [Automat ed code = 7685908530) message] The system which generated this result transmitted reference range : 0.0 - 10.0 /100 WBCs. The refer ence range was not u sed to interpret th is result as normal/abnormal . NRBC x10^3 (test code <0.01 See_Comment [Auto mated = 3903639981) message] The s ystem which generated this result transmitted reference range : 10*3/?L. The reference range was not used to interpret this result as normal/abnormal . GRAN MAT (NEUT) % 62.3 % (test code = 770-8) IMM GRAN % (test code 0.30 % = 1196254913) LYMPH % (test code = 26.3 % 736-9) MONO % (test code = 8.4 % 5905-5) EOS % (test code = 2.1 % 713-8) BASO % (test code = 0.6 % 706-2) GRAN MAT x10^3(ANC) 4.09 10*3/uL 1.99-6.95 (test code = 0904271447) IMM GRAN x10^3 (test <0.03 0.00-0.06 code = 2464627438) LYMPH x10^3 (test code 1.73 10*3/uL 1.09-3.23 = 731-0) MONO x10^3 (test code 0.55 10*3/uL 0.36-1.02 = 742-7) EOS x10^3 (test code = 0.14 10*3/uL 0.06-0.53 711-2) BASO x10^3 (test code 0.04 10*3/uL 0.01-0.09 = 704-7) Lab Interpretation Abnormal (test code = 85456-3) [facility]) 2021-08-09 15:17:01 Test Item Value Reference Range Interpretation Comments SARS-COV2/RT-PCR (test Negative Not Detected, Negative, code = 7967193) See external report for linked test SARS-COV-2 PERFORMING LAB [facility] SLY (test code = 2148788) Negative result for this test determines that [...] of the Act.Fact Sheet for Healthcare Prov iders:https://www.[employer].com/sites/default/files/product/documents/Fact_Sheet_HC _Cvqpzgpaq_Opgm_RDYM-SbT-4.pdfFact Sheet for Healthcare Patients:https://www.[employer].com/sites/default/files/product/docume nts/Dxfk_Aikca_Cpqnuysh_Rccz_CLLM-JxF-1.pdfPerforming Laboratory:[place] [address] [address].[place], [place] [address]UEIGPROFVX LEVEL 2021-08-09 12:53:37 Test Item Value Reference Range Interpretation Comments SALICYLATE LEVEL (BEAKER) (test code < mg/dL 15.0-30.0 L = 764) Therapeutic Range: 15.0-30.0 mg/dLToxic: >30.0 mg/dL Lethal: >70.0 mg/dL RAPID DRUG SCREEN, [id number] 11:08:48 Test Item Value Reference Range Interpretation [...] situations. Chain of custody not maintained. Some [id number] medications, as well as adulterants, may cause inaccurate results. Clinical correlation should be applied. A more comprehensive drug screen or confirmation of a detected drug may be performed upon request.Candy Cutter Machine ID - [auto]Candy Cutter Machine ID - MARVA MOperator ID - techCOMPREHENSIVE METABOLIC [id number] 10:50:53 Test Item Value Reference Range Interpretation [...] S NOT APPLICABLE FOR DIALYSIS PATIEN TS. Candy Cutter Machine ID - MARVA MACETAMINOPHEN [id number] 10:50:53 Test Item Value Reference Range Interpretation Comments ACETAMINOPHEN LEVEL (BEAKER) (test < ug/mL 10.0-30.0 L code = 344) Therapeutic Range: 10.0-30.0 g/mLToxic Levels: >200.0 g/mLOperator ID - MARVA [id number] 10:48:12 Test Item Value Reference Range Interpretation Comments ETHANOL (BEAKER) < mg/dL See_Comment [Automated message] The (test code = 400) system i generated this result tra nsmitted reference range : <=10. The reference r freddy was not used to int erpret this result as normal/abnormal . Candy Cutter Machine ID - MARVA MCBC W/PLT COUNT & AUTO [id number] 10:30:51 Test Item Value Reference Range Interpretation [...] = 2801) RAD, CHEST, 1 VIEW, NON [id number] 10:30:00Reason for exam:->MENTAL HEALTH PROBLEMShould this be performed at the bedside?->Yes [facility] : 1985 Sex: MFINALREPORT RAD, CHEST, 1 VIEW, NON DEPT TECHNIQUE: Frontal view(s) of the chest. INDICATION: MENTAL HEALTH PROBLEM COMPARISON: None FINDINGS/IMPRESSION: Lines/Tubes: None Lungs/pleura:No focal consolidation or interstitial pulmonary edema. No pleural effusion. No pneumothorax. Heart and Mediastinum: Unremarkable. Soft Tissues and Bones: Unremarkable. Signed: Main [place] Verified Date/Time: 08/09/2021 10:30:08 Reading Location: [address] Ortho Consult Reading Room THYROID STIMULATING [id number] 05:13:00 Test Item Value Reference Range Interpretation Comments TSH (test code = See_Comment [Automated message] [id number]) The system Voicendo generated this result transmitted ref erence range: 0.45 - 4 .70 mIU/L. The refe rence range was not u sed to interpret this result as normal/abnor mal. Lab Interpretation (test Normal code = 38248-7) [facility] [id number] 04:50:15 No acute cardiopulmonary abnormality. IRamona MD., have reviewed this study and agree with the abovereport.* * * * * * * * ORIGINAL REPORT * * * * * * * *XR CHEST 1 VW HISTORY: Admission clearance COMPARISON: 04/16/2016 FINDINGS: The lungs are clear. No focal consolidation, pneumothorax, or pleuraleffusion is seen. The cardiomediastinal silhouette is normal. No acute osseous abnormality. [facility], Radiant Results Inft User - 02/17/2019 11:52 [...] reviewed this study and agree with the abovereport.[facility] CenterACET[facility]INOPHEN2019-08-24 04:46:00 Test Item Value Reference Range Interpretation Comments ACETAMINOP (test code = <10.0 10-30 L 7598048725) DIYA (test code = DIYA) Toxic: Greater than 200 ug/mL @ 4 hour post ingestion or greater than 50 ug/mL @ 12 hour post ingestion Lab Interpretation (test Abnormal code = 90046-6) [facility]2019-[facility] 04:46:00 Test Item Value Reference Range Interpretation Comments ALCOHOL (test code = <10 mg/dL 4492684492) DIYA (test code = DIYA) <10 [id number] Toxic>100 Depression of SENIOR DESIGN ENGINEERING SPECIALIST>400 Fatalities Reported [facility] CenterCOM. METABOLIC PANEL ([id number])2019-02-18 04:43:00 Test Item Value Reference Range Interpretation Comments NA (test code = 142 mmol/L 135-145 1631750915) K (test code = 4.0 mmol/L 3.5-5 1977683429) CL (test code = 107 mmol/L 98-108 9393862393) CO2 TOTAL (test code = 24 mmol/L 23-31 6563368766) AGAP (test code = 2-16 2032182639) BUN (test code = 16 mg/dL 7-23 5874730109) GLUCOSE (test code = 105 mg/dL 70-110 6036422796) CREATININE (test code 0.74 mg/dL 0.6-1.25 = 6926561340) TOTAL BILI (test code 0.3 mg/dL 0.1-1.1 = 5465620062) CALCIUM (test code = 9.5 mg/dL 8.6-10.6 6969092134) T PROTEIN (test code = 7.0 g/dL 6.3-8.2 9563163932) ALBUMIN (test code = 4.3 g/dL 3.5-5 7428878372) ALK PHOS (test code = 97 U/L 34-122 4758773877) ALT(SGPT) (test code = 16 U/L 9-51 5953848402) AST(SGOT) (test code = 18 U/L 13-40 9714416092) eGFR Calculation mL/min/1.73m2 (Non-) (test code = 6215300106) eGFR Calculation mL/min/1.73m2 () (test code = 9669571061) DIYA (test code = DIYA) Association of [...] or urine or abnormalities in imaging tests). [facility] [id number] 04:22:00 Test Item Value Reference Range Interpretation Comments APPEARANCE (test code Slightly Cloudy Clear A = 8187736889) COLOR (test code = Yellow Yellow 9747539224) PH (test code = 4.8-8.0 1219584056) SP GRAVITY (test code 1.003-1.030 = 1102832109) GLU U QUAL (test code Negative Negative = 0994658312) BLOOD (test code = Negative Negative 5149043315) KETONES (test code = Negative Negative 7239190342) PROTEIN (test code = Negative Negative 2887-8) UROBILIN (test code = 0.2 mg/dL See_Comment [Auto mated 1294156234) message] The system which generated this result transmit pao reference range : 0-1.0 mg/dL. Th e reference range was not used to interpret this result as normal/abnormal . BILIRUBIN (test code Negative Negative = 1239925973) NITRITE (test code = Negative Negative 6593490935) LEUK LYNN (test code Negative Negative = 7269357057) RBC/HPF (test code = See_Comment [Autom ated 3541777427) message] The system which generated this result transmit pao reference range : 0 - 3 HPF. The reference range was not used to interpret this result as normal/abnormal . WBC/HPF (test code = See_Comment [Autom ated 9828703065) message] The system which generated this result transmit pao reference range : 0 - 5 HPF. The reference range was not used to interpret this result as normal/abnormal . BACTERIA (test code = Few Negative A 1736612472) AMORPHOUS (test code Moderate HPF = 3674331002) Lab Interpretation Abnormal (test code = 56507-6) [facility] - DRUG SCREEN [id number] 04:21:00 Test Item Value Reference Range Interpretation Comments BENZO U (test code = Negative Negative 4167332892) VENKATESH U (test code = Negative Negative 0358794422) AMPHET (test code = Negative Negative 1006036838) THC (test code = Negative Negative 3904586723) METHADONE (test code = Negative Negative 1985431744) Meth U (test code = Negative Negative 3272843280) OPIATES (test code = Negative Negative 0669305729) Cocaine Metabolite (test Negative Negative code = 7935027482) PROPOXY (test code = Negative Negative 1830196703) Tric U (test code = Negative Negative 9220037572) PCP (test code = Negative Negative 0253125121) OXYCOD (test code = Negative Negative 0336239218) DIYA (test code = DIYA) Urine Drug [...] testing). Lab Interpretation (test Normal code = 28775-9) [facility] WITH [id number] 04:08:00 Test Item Value Reference Range Interpretation Comments WBC (test code = See_Comment [Automated 6136-2) message] The sy stem which generated this result transmitted reference range : 4.20 - 10.70 10*3/?L. The reference range was not used to interpret this result as normal/abnormal . RBC (test code = See_Comment [Automated 223-8) message] The sy stem which generated this [...] RDW-SD (test code = 43.0 fL 38.5-51.6 17411-6) RDW-CV (test code = 12.9 % 12.1-15.4 788-0) PLT (test code = See_Comment [Automated 777-3) message] The sy stem which generated this result transmitted reference range : 150 - 328 10*3/ ?L. The reference r freddy was not used to interpret this result as normal/abnormal . MPV (test code = 9.7 fL 9.8-13 L 46711-3) NRBC/100 WBC (test See_Comment [Automat ed code = 3179749839) message] The system which generated this result transmitted reference range : 0.0 - 10.0 /100 WBCs. The refer ence range was not u sed to interpret th is result as normal/abnormal . NRBC x10^3 (test code <0.01 See_Comment [Auto mated = 0541916502) message] The s ystem which generated this result transmitted reference range : 10*3/?L. The reference range was not used to interpret this result as normal/abnormal . GRAN MAT (NEUT) % 57.3 % (test code = 770-8) IMM GRAN % (test code 0.40 % = 8323182031) LYMPH % (test code = 32.4 % 736-9) MONO % (test code = 8.7 % 5905-5) EOS % (test code = 0.8 % 713-8) BASO % (test code = 0.4 % 706-2) GRAN MAT x10^3(ANC) 4.21 10*3/uL 1.99-6.95 (test code = 6727519206) IMM GRAN x10^3 (test 0.03 10*3/uL 0-0.06 code = 6557956019) LYMPH x10^3 (test code 2.38 10*3/uL 1.09-3.23 = 731-0) MONO x10^3 (test code 0.64 10*3/uL 0.36-1.02 = 742-7) EOS x10^3 (test code = 0.06 10*3/uL 0.06-0.53 711-2) BASO x10^3 (test code 0.03 10*3/uL 0.01-0.09 = 704-7) Lab Interpretation Abnormal (test code = 55642-9) [facility]"
--- NOTE | 2023-02-10 01:35 | ER ---
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 Coronavirus screen: Client denies travel out of the [place] in the last 14 days. At this time, the client does not indicate any symptoms associated with coronavirus-19. Ebola Screen: Patient negative for fever greater than or equal to 101.5 degrees Fahrenheit, and additional compatible Ebola Virus Disease symptoms Patient denies exposure to infectious person. Patient denies travel to an Ebola-affected area in the 21 days before illness onset. No symptoms or risks identified at this time. Risk Assessment: Do you want to hurt yourself or someone else? Patient reports no desire to harm self or others. Onset of symptoms was February 08, 2023. 01:35 Method Of Arrival: Ambulatory vc1 01:35 Acuity: LUCERO 4 vc1 01:38 Initial Sepsis Screen: Does the patient meet any 2 criteria?. kd3 Historical: - Allergies: 01:36 No Known Allergies; vc1 - Home Meds: 01:36 Abilify 5 mg Oral tab 1 tab once daily [Active]; hydroxyzine HCl 10 mg Oral tab vc1 [Active]; - PMHx: 01:36 Anxiety; Bipolar disorder; Depression; Panic Attacks; Schizophrenia; Seizures; vc1 - PSHx: 01:36 None; vc1 - Immunization history:: unknown. - Social history:: Smoking status: Patient reports the use of cigarette tobacco products, unknown amount. - Family history:: not pertinent. Screenin:33 [facility] ED Fall Risk Assessment (Adult) History of falling in the last 3 months, kd3 including since admission No falls in past 3 months (0 pts) Confusion or Disorientation No (0 pts) Intoxicated or Sedated No (0 pts) Impaired Gait No (0 pts) Mobility Assist Device Used No (0 pt) Altered Elimination No (0 pt) Score/Fall Risk Level 0 - 2 = Low Risk Maintained a safe environment. Abuse screen: Denies threats or abuse. Denies injuries from another. Nutritional screening: No deficits noted. Tuberculosis screening: No symptoms or risk factors identified. Assessment: 01:32 General: Appears in no apparent distress. Behavior is anxious. General: PT examined by kd3 provider. Pt refused treatment. Pt refused vital signs. . Pain: Denies pain. Respiratory: Airway is patent Trachea midline Respiratory effort is even, unlabored. Vital Signs: 01:38 vc1 01:38 refused vitals vc1 ED Course: 01:10 Patient arrived in ED. mr 01:14 Yordan Lazar MD is Attending Physician. sp4 01:16 Patient has correct armband on for positive identification. Bed in low position. vc1 01:17 Patient's name was called from ER lobby. No response. vc1 01:32 Edilia Hansen RN is Primary Nurse. kd3 01:36 Triage completed. vc1 01:37 Arm band placed on right wrist. kd3 01:37 chaperoned testicular exam. Patient did not have IV access during this emergency room vc1 visit. Administered Medications: No medications were administered Medication: 01:37 VIS not applicable for this client. kd3 Outcome: 01:35 Discharge ordered by . sp4 01:37 Discharged to home ambulatory. kd3 01:37 Condition: stable 01:37 Discharge instructions given to patient, Instructed on discharge instructions, follow up and referral plans. Demonstrated understanding of instructions, follow-up care. 01:38 Patient left the ED. kd3 Signatures: Lazo Patricia burleson Edilia Hansen, RN RN kd3 Maria Antonia Hadley RN RN vc1 Yordan Lazar MD MD sp4 Corrections: (The following items were deleted from the chart) 01:39 01:38 Initial Sepsis Screen: Does the patient meet any 2 criteria? vc1 vc1
--- NOTE | 2023-02-10 01:35 | EDPHYS ---
Physician Documentation [facility] Name: Osvaldo Crowe Age: 37 yrs Sex: Male : 1985 Arrival Date: 02/10/2023 Time: 01:07 Bed 8 Private MD: ED Physician Yordan Lazar HPI: 02/10 01:14 This 37 yrs old Male presents to ER via Unassigned with complaints of sp4 Testicular Pain, Mental Evaluation. 03:01 37-year-old male presents with complaint of bilateral testicular pain from riding on sp4 his bicycle. Patient states that he has also been hearing voices and responding to voices outside of the hospital. Patient states that somebody speaking to him from the loud speaker outside. After some time patient did admit to use of crystal meth. On presentation patient is having persistent psychomotor agitation indicative of stimulant intoxication. After some additional questioning patient reported that he would like to be released from the emergency department. . Historical: - Allergies: 01:36 No Known Allergies; vc1 - Home Meds: 01:36 Abilify 5 mg Oral tab 1 tab once daily [Active]; hydroxyzine HCl 10 mg Oral tab vc1 [Active]; - PMHx: 01:36 Anxiety; Bipolar disorder; Depression; Panic Attacks; Schizophrenia; Seizures; vc1 - PSHx: 01:36 None; vc1 - Immunization history:: unknown. - Social history:: Smoking status: Patient reports the use of cigarette tobacco products, unknown amount. - Family history:: not pertinent. ROS: 03:01 Constitutional: Negative for fever, chills, and weight loss, : Negative for injury, sp4 bleeding, discharge, and swelling, positive bilateral testicular pain Psych: Negative for depression, anxiety, positive for auditory hallucinations and mild agitation 03:01 All other systems are negative. Exam: 03:01 Constitutional: This is a well developed, well nourished patient who is awake, alert, sp4 patient has persistent psychomotor agitation, mild to moderate anxiety, there is also poor dentition, large midsternal scar from prior sternotomy. Patient is small in stature Head/Face: Normocephalic, atraumatic. Eyes: Pupils equal round and reactive to light, extra-ocular motions intact. Lids and lashes normal. Conjunctiva and sclera are not injected. Cornea within normal limits. Periorbital areas with no swelling, redness, or edema. ENT: Nares patent. No nasal discharge, no septal abnormalities noted. Tympanic membranes are normal and external auditory canals are clear. Oropharynx with no redness, swelling, or masses, exudates, or evidence of obstruction, uvula midline. Mucous membranes moist. Poor dental health Neck: Trachea midline, no thyromegaly or masses palpated, and no cervical lymphadenopathy. Supple, full range of motion without nuchal rigidity, or vertebral point tenderness. Chest/axilla: Normal chest wall appearance and motion. Nontender with no deformity. No lesions are appreciated. Cardiovascular: Regular rate and rhythm with a normal S1 and S2. No gallops, murmurs, or rubs. Normal PMI, no JVD. No pulse deficits. Respiratory: Lungs have equal breath sounds bilaterally, clear to auscultation and percussion. No rales, rhonchi or wheezes noted. No increased work of breathing, no retractions or nasal flaring. Abdomen/GI: Soft, non-tender, with normal bowel sounds. No distension or tympany. No guarding or rebound. No evidence of tenderness throughout. Back: No spinal tenderness. No costovertebral tenderness. Male : Normal genitalia with no discharge or lesions. Patient did agree to testicular exam, there is normal bilateral testicular exam, no mass, no swelling, no tenderness, no redness, no rashes, patient is circumcised male, no sign of inguinal hernia, no sign of inguinal lymphadenopathy. Normal bilateral femoral pulses. Otherwise normal exam. Skin: Warm, dry with normal turgor. Normal color with no rashes, no lesions, and no evidence of cellulitis. MS/ Extremity: Pulses equal, no cyanosis. Neurovascular intact. Full, normal range of motion. Neuro: Awake and alert, GCS 15, oriented to person, place, Cranial nerves II-XII grossly intact. Motor strength 5/5 in all extremities. Sensory grossly intact. Psych: Awake, alert, with orientation to person, place , positive reported auditory hallucinations, on exam there is psychomotor agitation, fidgeting, poorly cooperative, pressured speech, signs of stimulant intoxication Vital Signs: 01:38 vc1 01:38 refused vitals vc1 MDM: 01:35 Patient medically screened. sp4 03:01 Differential diagnosis: nonspecific abdominal pain, UTI, urinary retention, sp4 prostatitis, urethritis. Data reviewed: vital signs, nurses notes, old medical records. ED course: Patient was offered lorazepam for agitation and also was advised to discontinue methamphetamine abuse. Testicular exam is normal today. Scrotal exam is normal today requiring no further work-up. At this time patient is refusing any further treatment and evaluation. Patient has walked out of the emergency room. Since patient is not homicidal or suicidal. We have no grounds to hold patient in the emergency department. Administered Medications: No medications were administered Disposition Summary: 02/10/23 01:35 Discharge Ordered Location: Home sp4 Problem: new sp4 Symptoms: have improved sp4 Condition: Stable sp4 Diagnosis - Methicillin resistant Staphylococcus aureus infection as the cause of diseases sp4 classified elsewhere - Acute bilateral testicular discomfort, acute methamphetamine abuse, anxiety sp4 secondary to methamphetamine abuse Followup: sp4 - With: Private Physician - When: As needed - Reason: Recheck today's complaints Discharge Instructions: - Discharge Summary Sheet sp4 - Methamphetamines Use Disorder sp4 Forms: - Patient Portal Instructions sp4 Signatures: Maria Antonia Hadley RN RN vc1 Yordan Lazar MD MD sp4
== END 2023-02-10 01:38 | disposition home or self-care (01) ==
LOC: ER 01:07
DX: N50.812 Left testicular pain (principal); N50.811 Right testicular pain; B95.62 Methicillin resistant Staphylococcus aureus infection as the cause of diseases classified elsewhere; F15.180 Other stimulant abuse with stimulant-induced anxiety disorder; F20.9 Schizophrenia, unspecified; Z72.0 Tobacco use

== ENCOUNTER 2023-02-14 14:40 | Emergency (ER) | payer OTHER ==
--- OUTSIDE RECORDS SUMMARY | 2023-02-14 14:44 | XMS REPORT | Continuity of Care Document ---
:1985 Author Organization [facility] t Address [address] [place] [address] Care Team Providers Name Role Phone Asked, No Pcp Primary Care Physician Unavailable Devi PEÑA, [facility] Attending Clinician Ludwig CISSE, Julita Coello Attending Clinician Unavailable JUAN C MEIER Attending Clinician Unavailable Juan C Meier DO Attending Clinician Doctor Unassigned, [place] Attending Clinician Unavailable JUAN FOOTE Attending Clinician Unavailable BLOSSOM LEIGH Attending Clinician Unavailable Edenilson Mendoza Attending Clinician MD DEVI [facility] Admitting Clinician Unavailable Payers Payer Name Policy Type Policy Number Effective Date Expiration Date S [facility] [id number] 2022 (MEDICARE 00:00:00 REPLACEMENT HMO) UHC MEDICARE [id number] 2021 2022 COMPLETE OON 00:00:00 00:00:00 TP24 QUALIFIED [id number] 2019 MEDICARE 00:00:00 BENEFICIARY Problems Condition Condition [...] different from the original. 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 Natural mother Alcohol abuse [facility] Social History Social Habit Start Date Stop Date Quantity Comments Source Exposure to Not sure University [facility] SARS-CoV-2 (event) [facility] Gender identity Markus [facility]gers Sexual orientation [facility] History of tobacco Cigarette Smoker [facility] use History of Social 2022-07-24 2022-07-24 [facility] function 00:00:00 00:00:00 Alcohol intake 2021-08-09 2021-08-09 Ex-drinker Markus Kapadia lt 00:00:00 00:00:00 (finding) Cigarettes smoked 2016-09-10 2016-09-10 [facility] current (pack per 00:00:00 00:00:00 Hospita l day) - Reported Cigarette 2016-09-10 2016-09-10 Mandaen pack-years 00:00:00 00:00:00 Hospital Sex Assigned At [birth year] TRISHA Rivera 00:00:00 00:00:00 [facility] Center Smoking Status Start Date Stop Date Source Occasional tobacco smoker 2021-08-09 00:00:00 [facility] Unknown if ever smoked [facility] Smokes tobacco daily 2016-09-10 00:00:00 [facility] Medications Ordered Filled Start Stop Current Ordering [...] ris MINE 2-15 disturbance capsule by Jonathan alth (BENADRYL) 00:00: mouth 50 mg 00 [...] 4-6). No known No Methodi medications [facility] Vital Signs Vital Name Observation Time Observation Value Comments Source Systolic blood 2021-09-18 11:00:00 109 mm[facility]Hg[facility] blood 2021-09-18 11:00:00 75 mm[Hg] Unive [facility] Heart rate 2021-09-18 11:00:00 59 /min [facility] Respiratory rate 2021-09-18 11:00:00 12 /[facility] Oxygen saturation in 2021-09-18 11:00:00 100 /min [facility] Arterial blood by [facility] Pulse oximetry [place] Body temperature 2021-09-18 02:28:00 35.89 [facility] Body height 2021-09-18 02:28:00 165.1 cm [facility] Body weight 2021-09-18 02:28:00 54.432 kg [facility] BMI 2021-09-18 02:28:00 19.97 kg/m2 [facility] HEIGHT 2021-08-09 08:53:00 165.1 cm WEIGHT 2021-08-09 08:53:00 57.607 kg HEIGHT 2021-08-09 08:53:00 165.1 cm WEIGHT 2021-08-09 08:53:00 57.607 kg Systolic blood 2019-02-18 06:30:00 102 mm[Hg] [facility] Diastolic blood 2019-02-18 06:30:00 66 mm[Hg] Unive [facility] Heart rate 2019-02-18 06:30:00 71 /min [facility] Respiratory rate 2019-02-18 06:30:00 18 /min Univ [facility] Oxygen saturation in 2019-02-18 06:30:00 98 /min [facility] Arterial blood by [facility] Pulse oximetry Branch Body temperature 2019-02-18 03:19:00 36.5 Melonie [facility] ersity of [facility] Body height 2019-02-18 03:19:00 165.1 cm [facility] Body weight 2019-02-18 03:19:00 59.875 kg [facility] BMI 2019-02-18 03:19:00 21.97 kg/m2 [facility] Systolic blood 2019-02-18 06:30:00 102 mm[Hg] Univer [facility]ity [facility] Diastolic blood 2019-02-18 06:30:00 66 mm[Hg] Unive rsity of pressure [facility] Heart rate 2019-02-18 06:30:00 71 /min [facility] Respiratory rate 2019-02-18 06:30:00 18 /min [facility] ersity [facility] Oxygen saturation in 2019-02-18 06:30:00 98 /min [facility] Arterial blood by [facility] Pulse oximetry Branch Body temperature 2019-02-18 03:19:00 36.5 Melonie [facility] ersity [facility] Body height 2019-02-18 03:19:00 165.1 cm [facility] Body weight 2019-02-18 03:19:00 59.875 kg [facility] BMI 2019-02-18 03:19:00 21.97 kg/m2 [facility] Systolic blood 2022-11-24 15:06:00 122 mm[Hg] Method ist [facility] pressure Diastolic blood 2022-11-24 15:06:00 78 mm[Hg] [facility] pressure Heart rate 2022-11-24 15:06:00 88 /min [facility] Body temperature 2022-11-24 15:06:00 36.78 Melonie [facility] Respiratory rate 2022-11-24 15:06:00 17 /min [facility] Oxygen saturation in 2022-11-24 15:06:00 99 /min [facility] Arterial blood by Pulse oximetry Body height 2022-11-21 18:54:00 165.1 cm [facility] Body weight 2022-11-21 18:54:00 58.968 kg [facility] BMI 2022-11-21 18:54:00 21.63 kg/m2 [facility] Procedures Procedure Date / Time Performing Clinician Source Performed URINALYSIS SCREEN AND 2022-11-21 22:19:00 Devi [facility] MICROSCOPY, WITH REFLEX TO CULTURE ALCOHOL LEVEL, BLOOD 2022-11-21 22:19:00 Devi [facility] ACETAMINOPHEN LEVEL 2022-11-21 22:19:00 Devi [facility] URINE DRUGS OF ABUSE 2022-11-21 22:19:00 Devi [facility] SCREEN ESTIMATED GFR 2022-11-21 22:19:00 Devi [facility] SALICYLATE LEVEL 2022-11-21 22:19:00 Devi [facility] MWS - EXECUTIVE PROFILE 2022-11-21 22:19:00 [facility] PANEL VALPROIC ACID LEVEL 2022-11-21 22:19:00 Devi [facility] URINE CULTURE 2022-11-21 22:19:00 Quinonez [facility] COMPREHENSIVE METABOLIC 2022-11-21 22:19:00 Quinonez [facility] PANEL CREATINE KINASE, TOTAL 2022-11-21 22:19:00 [facility] (CPK) COVID-19 QUALITATIVE 2022-11-21 21:14:00 Devi [facility] RT-PCR ECG 12-LEAD 2022-11-21 20:58:51 Devi [facility] COMP. METABOLIC PANEL 2021-09-18 03:36:00 Juan C Meier [facility] ([id number]) Medical Branch SALICYLATE 2021-09-18 03:36:00 Singer [facility] ETHANOL 2021-09-18 03:36:00 Singer [facility] CBC WITH DIFF 2021-09-18 03:36:00 Singer [facility] URINALYSIS 2021-09-18 03:36:00 Singer [facility] COVID-19 (ID NOW RAPID 2021-09-18 03:36:00 Juan C Meier [facility] TESTING) Medical Branch URINE DRUG (IMMUNOASSAY) 2021-09-18 03:36:00 Juan C Meier [facility] - COMPREHENSIVE DRUG Medical Bra nch SCREEN W/O REFLEX CONSENT/REFUSAL FOR 2021-09-18 02:09:30 Doctor Unassigned, No Un [facility] DIAGNOSIS AND TREATMENT Name Medical Branch XR CHEST 1 VW 2019-02-18 03:59:16 Edenilson Granados [facility] THYROID STIMULATING 2019-02-18 03:57:00 Edenilson Granados [facility] HORMONE Medical Branch COMP. METABOLIC PANEL 2019-02-18 03:57:00 Edenilson Granados [facility] ([id number]) [facility] Branch ACETAMINOPHEN 2019-02-18 03:57:00 Edenilson Granados [facility] ETHANOL 2019-02-18 03:57:00 Edenilson Granados [facility] CBC WITH DIFFERENTIAL 2019-02-18 03:57:00 Edenilson Granados [facility] URINALYSIS 2019-02-18 03:57:00 Edenilson Granados [facility] ADC / LCC - DRUG SCREEN 2019-02-18 03:57:00 Edenilson Granados [facility] TRIAGE [facility] EKG-12 LEAD 2019-02-18 03:31:24 Edenilson Granados [facility] Plan of Care Planned Activity Planned Date [...] [facility] 00:[facility] [code = Influenza Vaccine Me dical Center (#1)] Future Scheduled 2023-02-26 Influenza Vaccine (#1) [facility] 00:[facility]00 [code = Influenza Vaccine Me dical Center (#1)] Future Scheduled 2022-06-29 MEDICARE ANNUAL WELLNESS [facility] 00:00:00 (YEAR 2 or FIRST YEAR if Med ical Center no IPPE) [code = MEDICARE ANNUAL WELLNESS (YEAR 2 or FIRST YEAR if no IPPE)] Future Scheduled 2022-06-29 MEDICARE ANNUAL WELLNESS [facility] Test 00:00:00 (YEAR 2 or FIRST YEAR if Med ical Center no IPPE) [code = MEDICARE ANNUAL WELLNESS (YEAR 2 or FIRST YEAR if no IPPE)] Future Scheduled 2022-06-[address] [facility] 00:00:00 (12+) [code = DEPRESSION Med ical Center SCREENING (12+)] Future Scheduled 2022-06-[address] [facility] 00:00:00 (12+) [code = DEPRESSION Med ical Center SCREENING (12+)] Future Scheduled 2019 Lipid panel (procedure) [facility] Test 00:00:00 [code = 22141292] Medical Ce nter Future Scheduled 2019 Lipid panel (procedure) [facility] Test 00:00:00 [code = 66893839] Medical Ce nter Future Scheduled 2003 DTAP/TDAP/TD VACCINES ([address] [facility] 00:00:00 - Tdap) [code = Medical Cent er DTAP/TDAP/TD VACCINES (1 - Tdap)] Future Scheduled 2003 DTAP/TDAP/TD VACCINES ([address] [facility] Test 00:00:00 - Tdap) [code = Medical Cent er DTAP/TDAP/TD VACCINES (1 - Tdap)] Future Scheduled 2002 HEPATITIS C SCREENING [facility] 00:00:00 [code = HEPATITIS C Medical Center SCREENING] Future Scheduled 2002 HEPATITIS C [facility]CRE[facility]ING [facility] 00:00:00 [code = HEPATITIS C Medical Center SCREENING] Future Scheduled [address] [facility] 00:00:00 virus screening Medical Cent er (procedure) [code = 504341788] Future Scheduled [address] [facility] Test 00:00:00 virus screening Medical Cent er (procedure) [code = 418727589] Future Scheduled [address] [facility] Test 00:00:00 Counseling and Screening Med ical Center (12+) [code = Tobacco Cessation Counseling and Screening (12+)] Future Scheduled [address] [facility] Test 00:00:00 Counseling and Screening Med ical Center (12+) [code = Tobacco Cessation Counseling [...] (1 - PCV)] Future Scheduled 1984 COVID-19 VACCINE (#1) CH [...] COVID-19 Vaccine (#1)] Future Scheduled 1984 COVID-19 Vaccine (#1) Pimentel [facility] Test 00:00:00 [code = COVID-19 Vaccine (#1)] Encounters Start End Encounter Admission Attending Care Care Encounter Source Date/Time Date/Time Type Type Clinicians Facility Department ID 2021-09-18 Outpatient [facility] [id number] [place] 06:10:41 [id number] [facility] 2022-11-21 2022-11-24 Emergency Quinonez, 1.2.840.1 [id number] Methodi 14:28:00 14:55:00 [facility] [address] [facility] 3.430.2.7 Hospit a .3.284843 l .8 2022-11-24 2022-11-24 Travel 1.2.840.1 1.2.210.359 [id number] Methodi 00:00:00 00:00:[address] 3.430.2.7 0.2.7.3.698 Ho spita .3.681226 084.8 l .8 2022-11-21 2022-11-21 Travel 1.2.840.1 1.2.455.581 [id number] Methodi 00:00:00 00:00:[address] 3.430.2.7 0.2.7.3.698 Ho spita .3.337742 084.8 l .8 2022-02-13 2022-02-13 [facility] [id number]oted 00:00:00 00:00:00 [id number] Medica l Group 2021-09-19 2021-09-19 Letter SANNA Munroe 1.2.840.114 [id number] Univers 00:00:00 00:00:00 (Out) Julita ROSE 350.1.13.10 it y [facility] 4.2.7.2.686 [place] as [id number] [place] [address] Branch 2021-09-17 2021-09-18 Emergency X CLEMENTINA MEIER ERT [id number] Univers 21:25:00 12:29:00 JUAN C itrobert of [facility] 2021-09-17 2021-09-18 [facility] 1.2.431.065 [id number] Univers 21:25:00 12:29:00 Juan C NESBITT 350.1.13.10 i ty [facility] 4.2.7.2.686 [facility] [id number] [address] 2021-09-17 2021-09-17 Orders Doctor SANNA 1.2.840.114 [id number] [facility] 00:00:00 00:00:00 Only Unassigned, ROSE 350.1.13.10 ity of [place] [address] [place] [id number] 2021-08-09 2021-08-12 Inpatient [facility] [id number] [place] 12:52:00 18:40:00 [facility] 2021-08-09 2021-08-09 Emergency ER JUAN FOOTE [facility] Emergency 20 [id number] [facility] 08:58:00 12:45:00 2021-08-08 2021-08-09 Emergency FRANCHESKA [facility] MED [id number] [place] 19:21:00 06:54:00 SCHMIDT [facility] BLOSSOM 2021-08-08 2021-08-08 Emergency [facility] [id number] [place] 17:53:56 18:02:46 [facility] 2021-08-08 2021-08-08 Emergency [facility] [id number] [place] [address] 00:00:00 00:00:00 [facility] [address] [facility] 2019-02-17 2019-02-18 [facility] [id number] [facility] 22:23:41 01:31:00 Edenilsoncaitlyn Nesbitt 350.1.13.10 i ty of [place] 4.2.7.2.686 [facility] [id number] [address] 2019-02-17 2019-02-18 [facility] 1.2.050.671 [id number] 22:23:41 01:31:00 Edenilson Nesbitt 350.1.13.10 [place] 4.2.7.2.686 [place] [id number] 084 Results Test Description Test Time Test Comments Results Result Comments Source ECG 12 lead 2022-11-21 23:06:02 Test Item Value Reference Range Interpretation Comme nts Ventricular rate (test code = 253) 65 Atrial rate (test code = 255) 65 WI interval (test code = 266) 166 QRSD [...] bundle branch block-Abnormal ECG-No previous ECGs available- [facility] [id number] 23:06:02 Test Item Value Reference Range Interpretation Comments Ventricular rate (test 65 code = 253) Atrial rate (test code = 65 255) WI interval (test code = 166 266) QRSD [...] Patrick MD ([id number]) on 11/21/2022 6:05:57 PM [facility] [id number] 22:47:00 Test Item Value Reference Range Interpretation Comments Urine culture (test SEE COMMENT Bacteriu eunice screen code = 6208294) negative. [facility] [id number] 22:47:00 Test Item Value Reference Range Interpretation Comments Urine culture (test SEE COMMENT Bacteriu eunice screen code = 3966518) negative. [facility] RNA [Presence] in Respiratory specimen by ARLYN with probe [id number] 19:12:41 Test Item Value Reference Range Interpretation Comments SARS-CoV-2 (COVID-19) RNA Not detected [Presence] in Respiratory specimen by ARLYN with probe detection (test code = 90106-2) Whether patient is employed in a Unknown healthcare setting (test code = 77541-4) Whether the patient has symptoms Unknown related to condition of interest (test code = 08940-5) Whether the patient was Unknown hospitalized for condition of interest (test code = 16955-5) Whether the patient was admitted Unknown to intensive care unit (ICU) for condition of interest (test code = 25316-1) Whether patient resides in a Unknown congregate care setting (test code = 61222-5) status (test code = Unknown 48880-0) Date and time of symptom onset Unknown (test code = 56208-0) ELADIO KAPOOR [id number] 04:20:56 Test Item Value Reference Range Interpretation Comments ALCOHOL (test code = <10 mg/dL 4340141275) DIYA (test code = DIYA) <10 [id number] Toxic>100 Depression of PAGE MAKEUP SYSTEM OPERATOR>400 Fatalities Reported [facility]2022-[facility]-24 04:18:06 Test Item Value Reference Range Interpretation Comments SALICYLATE (test code <10 mg/L = 8112003857) DIYA (test code = DIYA) Therapeutic Range: ? Analgesic and Antipyretic Use ? 20-100 mg/L ? ? Anti-Inflammatory Use ? 100-250 mg/L Toxic Range: ? Greater than 300 mg/L [facility] SpringsACETAMINOPHEN2022-03-24 04:18:00 Test Item Value Reference Range Interpretation Comments ACETAMINOP (test code = <10.0 10.0-30.0 L 0229762701) DIYA (test code = DIYA) Toxic: Greater than 200 ug/mL @ 4 hour post ingestion or greater than 50 ug/mL @ 12 hour post ingestion Lab Interpretation (test Abnormal code = 02487-9) [facility] SpringsCOM. METABOLIC PANEL (34541)2021-09-18 04:15:25 Test Item Value Reference Range Interpretation Comments NA (test code = 136 mmol/L 135-145 5561657651) K (test code = 4.1 mmol/L 3.5-5.0 1933372046) CL (test code = 103 mmol/L 98-108 0853616640) CO2 TOTAL (test code = 29 mmol/L 23-31 2706590715) AGAP (test code = 2-16 1224277153) BUN (test code = 16 mg/dL 7-23 6026303110) GLUCOSE (test code = 69 mg/dL 70-110 L 7834805793) CREATININE (test code = 0.80 mg/dL 0.60-1.25 1883414217) TOTAL BILI (test code = 0.5 mg/dL 0.1-1.3 7512447714) CALCIUM (test code = 9.0 mg/dL 8.6-10.6 5825659183) T PROTEIN (test code = 6.5 g/dL 6.3-8.2 0683791780) ALBUMIN (test code = 4.0 g/dL 3.5-5.0 1344665102) ALK PHOS (test code = 87 U/L 34-122 8186161221) ALTv (test code = 21 U/L 5-50 1742-6) AST(SGOT) (test code = 31 U/L 13-40 6279020668) eGFR (test code = mL/min/1.73m2 4532986392) DIYA (test code = DIYA) Association of [...] tests). Lab Interpretation Abnormal (test code = 59428-5) [facility] WITH [id number] 03:59:43 Test Item Value Reference Range Interpretation Comments WBC (test code = See_Comment [Automated 2190-2) message] The sy stem which generated this result transmitted reference range : 4.20 - 10.70 10*3/?L. The reference range was not used to interpret this result as normal/abnormal . RBC (test code = See_Comment [Automated 789-8) message] The sy stem which generated this [...] RDW-SD (test code = 40.9 fL 38.5-51.6 19196-8) RDW-CV (test code = 12.4 % 12.1-15.4 788-0) PLT (test code = See_Comment [Automated 777-3) message] The sy stem which generated this result transmitted reference range : 150 - 328 10*3/ ?L. The reference r freddy was not used to interpret this result as normal/abnormal . MPV (test code = 9.5 fL 9.8-13.0 L 54432-9) NRBC/100 WBC (test See_Comment [Automat ed code = 6619283705) message] The system which generated this result transmitted reference range : 0.0 - 10.0 /100 WBCs. The refer ence range was not u sed to interpret th is result as normal/abnormal . NRBC x10^3 (test code <0.01 See_Comment [Auto mated = 2905307846) message] The s ystem which generated this result transmitted reference range : 10*3/?L. The reference range was not used to interpret this result as normal/abnormal . GRAN MAT (NEUT) % 62.3 % (test code = 770-8) IMM GRAN % (test code 0.30 % = 8010344165) LYMPH % (test code = 26.3 % 736-9) MONO % (test code = 8.4 % 5905-5) EOS % (test code = 2.1 % 713-8) BASO % (test code = 0.6 % 706-2) GRAN MAT x10^3(ANC) 4.09 10*3/uL 1.99-6.95 (test code = 8626396642) IMM GRAN x10^3 (test <0.03 0.00-0.06 code = 9584231469) LYMPH x10^3 (test code 1.73 10*3/uL 1.09-3.23 = 731-0) MONO x10^3 (test code 0.55 10*3/uL 0.36-1.02 = 742-7) EOS x10^3 (test code = 0.14 10*3/uL 0.06-0.53 711-2) BASO x10^3 (test code 0.04 10*3/uL 0.01-0.09 = 704-7) Lab Interpretation Abnormal (test code = 53558-6) [facility]ARS-COV2/RT-PCR ([facility] 2021-08-09 15:17:01 Test Item Value Reference Range Interpretation Comments SARS-COV2/RT-PCR (test Negative Not Detected, Negative, code = 7213913) See external report for linked test SARS-COV-[address] [facility] SLY (test code = 8552345) Negative result for this test determines that [...] of the Act.Fact Sheet for Healthcare Prov iders:https://www.Skyp[employer]/sites/default/files/product/documents/Fact_Sheet_HC _Zsjziaeqe_Okwg_UQMS-OyP-3.pdfFact Sheet for Healthcare Patients:https://www.[employer]/sites/default/files/product/docume nts/Kycv_Mqtxp_Oqqyyyii_Vdbi_LDNK-CeX-3.pdfPerforming Laboratory:[facility], [place] [address]BKMXEBDPYL LEVEL 2021-08-09 12:53:37 Test Item Value Reference Range Interpretation Comments SALICYLATE LEVEL (BEAKER) (test code < mg/dL 15.0-30.0 L = 764) Therapeutic Range: 15.0-30.0 mg/dLToxic: >30.0 mg/dL Lethal: >70.0 mg/dL RAPID DRUG SCREEN, [id number] 11:08:48 Test Item Value Reference Range Interpretation [...] situations. Chain of custody not maintained. Some szyk-yhu-wvjhdox medications, as well as adulterants, may cause inaccurate results. Clinical correlation should be applied. A more comprehensive drug screen or confirmation of a detected drug may be performed upon request.Sap Manager ID - [auto]Sap Manager ID - MARVA MOperator ID - techCOMPREHENSIVE METABOLIC [id number] 10:50:53 Test Item Value Reference Range Interpretation [...] S NOT APPLICABLE FOR DIALYSIS PATIEN TS. Sap Manager ID - MARVA MACETAMINOPHEN [id number] 10:50:53 Test Item Value Reference Range Interpretation Comments ACETAMINOPHEN LEVEL (BEAKER) (test < ug/mL 10.0-30.0 L code = 344) Therapeutic Range: 10.0-30.0 g/mLToxic Levels: >200.0 g/mLOperator ID - MARVA [id number] 10:48:12 Test Item Value Reference Range Interpretation Comments ETHANOL (BEAKER) < mg/dL See_Comment [Automated message] The (test code = 400) system [facility] generated this result tra nsmitted reference range : <=10. The reference r freddy was not used to int erpret this result as normal/abnormal . Sap Manager ID - MARVA MCBC W/PLT COUNT & AUTO [id number] 10:30:51 Test Item Value Reference Range Interpretation [...] = 2801) RAD, CHEST, 1 VIEW, NON [id number] 10:30:00Reason for exam:->MENTAL HEALTH PROBLEMShould this be performed at the bedside?->Yes [facility] : 1985 Sex: MFINALREPORT RAD, CHEST, 1 VIEW, NON DEPT TECHNIQUE: Frontal view(s) of the chest. INDICATION: MENTAL HEALTH PROBLEM COMPARISON: None FINDINGS/IMPRESSION: Lines/Tubes: None Lungs/pleura:No focal consolidation or interstitial pulmonary edema. No pleural effusion. No pneumothorax. Heart and Mediastinum: Unremarkable. Soft Tissues and Bones: Unremarkable. Signed: Main Israel Verified Date/Time: 08/09/2021 10:30:08 Reading Location: [address] Ortho Consult Reading Room THYROID STIMULATING [id number] 05:13:00 Test Item Value Reference Range Interpretation Comments TSH (test code = See_Comment [Automated message] [id number]) The system [employer] generated this result transmitted ref erence range: 0.45 - 4 .70 mIU/L. The refe rence range was not u sed to interpret this result as normal/abnor mal. Lab Interpretation (test Normal code = 60396-4) [facility] 1 [id number] 04:50:15 No acute cardiopulmonary abnormality. I, MD [...] reviewed this study and agree with the abovereport.[facility] SpringsACETAMINOPHEN2019-08-24 04:46:00 Test Item Value Reference Range Interpretation Comments ACETAMINOP (test code = <10.0 10-30 L [id number]) DIYA (test code = DIYA) Toxic: Greater than 200 ug/mL @ 4 hour post ingestion or greater than 50 ug/mL @ 12 hour post ingestion Lab Interpretation (test Abnormal code = 07511-0) [facility]2019-08-24 04:46:00 Test Item Value Reference Range Interpretation Comments ALCOHOL (test code = <10 mg/dL 3710801282) DIYA (test code = DIYA) <10 [id number] Toxic>100 Depression of PAGE MAKEUP SYSTEM OPERATOR>400 Fatalities Reported [facility] Springs[facility]. METABOLIC PANEL ([id number])2019-02-18 04:43:00 Test Item Value Reference Range Interpretation Comments NA (test code = 142 mmol/L 135-145 4349500093) K (test code = 4.0 mmol/L 3.5-5 3904356316) CL (test code = 107 mmol/L 98-108 0834664251) CO2 TOTAL (test code = 24 mmol/L 23-31 4520613260) AGAP (test code = 2-16 9324074564) BUN (test code = 16 mg/dL 7-23 3151245558) GLUCOSE (test code = 105 mg/dL 70-110 2093112510) CREATININE (test code 0.74 mg/dL 0.6-1.25 = 9971252026) TOTAL BILI (test code 0.3 mg/dL 0.1-1.1 = 2701340107) CALCIUM (test code = 9.5 mg/dL 8.6-10.6 2444945673) T PROTEIN (test code = 7.0 g/dL 6.3-8.2 2112896710) ALBUMIN (test code = 4.3 g/dL 3.5-5 6577224119) ALK PHOS (test code = 97 U/L 34-122 9749057526) ALT(SGPT) (test code = 16 U/L 9-51 7577737514) AST(SGOT) (test code = 18 U/L 13-40 6808875401) eGFR Calculation mL/min/1.73m2 (Non-) (test code = 4064091320) eGFR Calculation mL/min/1.73m2 () (test code = 1965387845) DIYA (test code = DIYA) Association of [...] or urine or abnormalities in imaging tests). [facility]INAL[facility]IS2019-08-24 04:22:00 Test Item Value Reference Range Interpretation Comments APPEARANCE (test code Slightly Cloudy Clear A = 2161343770) COLOR (test code = Yellow Yellow 0386344324) PH (test code = 4.8-8.0 0723447884) SP GRAVITY (test code 1.003-1.030 = 2391678519) GLU U QUAL (test code Negative Negative = 6034593792) BLOOD (test code = Negative Negative 1316081136) KETONES (test code = Negative Negative 4008499927) PROTEIN (test code = Negative Negative 2887-8) UROBILIN (test code = 0.2 mg/dL See_Comment [Auto mated 0158986204) message] The system which generated this result transmit pao reference range : 0-1.0 mg/dL. Th e reference range was not used to interpret this result as normal/abnormal . BILIRUBIN (test code Negative Negative = 5220783357) NITRITE (test code = Negative Negative 6446735155) LEUK LYNN (test code Negative Negative = 7178448701) RBC/HPF (test code = See_Comment [Autom ated 2737197649) message] The system which generated this result transmit pao reference range : 0 - 3 HPF. The reference range was not used to interpret this result as normal/abnormal . WBC/HPF (test code = See_Comment [Autom ated 3062095521) message] The system which generated this result transmit pao reference range : 0 - 5 HPF. The reference range was not used to interpret this result as normal/abnormal . BACTERIA (test code = Few Negative A 1763244103) AMORPHOUS (test code Moderate HPF = 1115101447) Lab Interpretation Abnormal (test code = 53699-3) [facility] / [facility] - DRUG SCREEN [id number] 04:21:00 Test Item Value Reference Range Interpretation Comments BENZO U (test code = Negative Negative 0481590951) VENKATESH U (test code = Negative Negative 6061534391) AMPHET (test code = Negative Negative 7109575345) THC (test code = Negative Negative 4191920123) METHADONE (test code = Negative Negative 4812999375) Meth U (test code = Negative Negative 6158025120) OPIATES (test code = Negative Negative 8169934969) Cocaine Metabolite (test Negative Negative code = 0998421849) PROPOXY (test code = Negative Negative 8389462364) Tric U (test code = Negative Negative 3338701844) PCP (test code = Negative Negative 9809702856) OXYCOD (test code = Negative Negative 7287828777) DIYA (test code = DIYA) Urine Drug [...] testing). Lab Interpretation (test Normal code = 20911-8) [facility] WITH [id number] 04:08:00 Test Item Value Reference Range Interpretation Comments WBC (test code = See_Comment [Automated 3746-2) message] The sy stem which generated this result transmitted reference range : 4.20 - 10.70 10*3/?L. The reference range was not used to interpret this result as normal/abnormal . RBC (test code = See_Comment [Automated 621-8) message] The sy stem which generated this [...] RDW-SD (test code = 43.0 fL 38.5-51.6 39503-5) RDW-CV (test code = 12.9 % 12.1-15.4 788-0) PLT (test code = See_Comment [Automated 630-3) message] The sy stem which generated this result transmitted reference range : 150 - 328 10*3/ ?L. The reference r freddy was not used to interpret this result as normal/abnormal . MPV (test code = 9.7 fL 9.8-13 L 60769-4) NRBC/100 WBC (test See_Comment [Automat ed code = 1218763690) message] The system which generated this result transmitted reference range : 0.0 - 10.0 /100 WBCs. The refer ence range was not u sed to interpret th is result as normal/abnormal . NRBC x10^3 (test code <0.01 See_Comment [Auto mated = 8999251783) message] The s ystem which generated this result transmitted reference range : 10*3/?L. The reference range was not used to interpret this result as normal/abnormal . GRAN MAT (NEUT) % 57.3 % (test code = 770-8) IMM GRAN % (test code 0.40 % = 6787886166) LYMPH % (test code = 32.4 % 736-9) MONO % (test code = 8.7 % 5905-5) EOS % (test code = 0.8 % 713-8) BASO % (test code = 0.4 % 706-2) GRAN MAT x10^3(ANC) 4.21 10*3/uL 1.99-6.95 (test code = 0494044236) IMM GRAN x10^3 (test 0.03 10*3/uL 0-0.06 code = 9866467175) LYMPH x10^3 (test code 2.38 10*3/uL 1.09-3.23 = 731-0) MONO x10^3 (test code 0.64 10*3/uL 0.36-1.02 = 742-7) EOS x10^3 (test code = 0.06 10*3/uL 0.06-0.53 711-2) BASO x10^3 (test code 0.03 10*3/uL 0.01-0.09 = 704-7) Lab Interpretation Abnormal (test code = 98659-2) [facility]"
--- NOTE | 2023-02-14 15:02 | EDPHYS ---
Physician Documentation [facility] Name: Osvaldo Crowe Age: 37 yrs Sex: Male : 1985 Arrival Date: 02/14/2023 Time: 14:40 Bed 17 Private MD: ED Physician Teresa Polk HPI: 02/14 15:56 This 37 yrs old Male presents to ER via Ambulatory with complaints of Ear ringing. snw 15:56 The patient or guardian reports ear ringing bilaterally. Onset: The symptoms/episode snw began/occurred gradually. Modifying factors: The symptoms are alleviated by nothing. the symptoms are aggravated by nothing. Severity of symptoms: At their worst the symptoms were mild moderate. The patient has experienced similar episodes in the past. The patient has been recently seen at the [facility] Emergency Department, this week, for similar complaints pt discharged from ED with recommendation to stop using meth. Historical: - Allergies: 14:47 No Known Allergies; nj1 - PMHx: 14:47 Anxiety; Bipolar disorder; Depression; Panic Attacks; Schizophrenia; Seizures; nj1 - PSHx: 14:47 Open heart surgery; nj1 - Immunization history:: Client reports receiving the 2nd dose of the Covid vaccine. - Social history:: Smoking status: Patient reports the use of cigarette tobacco products, smokes one-half pack cigarettes per day, Patient uses street drugs, Methamphetamine (Meth). ROS: 15:58 Constitutional: Negative for fever, chills, and weight loss, Eyes: Negative for injury, snw pain, redness, and discharge, Neck: Negative for injury, pain, and swelling, Cardiovascular: Negative for chest pain, palpitations, and edema, Respiratory: Negative for shortness of breath, cough, wheezing, and pleuritic chest pain, Abdomen/GI: Negative for abdominal pain, nausea, vomiting, diarrhea, and constipation, Back: Negative for injury and pain, : Negative for injury, bleeding, discharge, and swelling, MS/Extremity: Negative for injury and deformity, Skin: Negative for injury, rash, and discoloration, Neuro: Negative for headache, weakness, numbness, tingling, and seizure, Psych: Negative for depression, anxiety, suicide ideation, homicidal ideation, and hallucinations. 15:58 ENT: Positive for tinnitus. Exam: 15:58 Head/Face: Normocephalic, atraumatic. Eyes: Pupils equal round and reactive to light, snw extra-ocular motions intact. Lids and lashes normal. Conjunctiva and sclera are non-icteric and not injected. Cornea within normal limits. Periorbital areas with no swelling, redness, or edema. Neck: Trachea midline, no thyromegaly or masses palpated, and no cervical lymphadenopathy. Supple, full range of motion without nuchal rigidity, or vertebral point tenderness. No Meningismus. Chest/axilla: Normal chest wall appearance and motion. Nontender with no deformity. No lesions are appreciated. Cardiovascular: Regular rate and rhythm with a normal S1 and S2. No gallops, murmurs, or rubs. Normal PMI, no JVD. No pulse deficits. Respiratory: Lungs have equal breath sounds bilaterally, clear to auscultation and percussion. No rales, rhonchi or wheezes noted. No increased work of breathing, no retractions or nasal flaring. Abdomen/GI: Soft, non-tender, with normal bowel sounds. No distension or tympany. No guarding or rebound. No evidence of tenderness throughout. Back: No spinal tenderness. No costovertebral tenderness. Full range of motion. Skin: Warm, dry with normal turgor. Normal color with no rashes, no lesions, and no evidence of cellulitis. MS/ Extremity: Pulses equal, no cyanosis. Neurovascular intact. Full, normal range of motion. Neuro: Awake and alert, GCS 15, oriented to person, place, time, and situation. Cranial nerves II-XII grossly intact. Motor strength 5/5 in all extremities. Sensory grossly intact. Cerebellar exam normal. Normal gait. 15:58 Constitutional: The patient appears alert, awake, anxious, restless. 15:58 ENT: External ear(s): are unremarkable, Ear canal(s): are normal, Nose: is normal, Posterior pharynx: no acute changes, Dental exam: fractured teeth are noted, diffusely, missing teeth. 15:58 Psych: Behavior/mood is cooperative, anxious, Affect is animated, Patient has no thoughts/intents to harm self or others. Vital Signs: 14:46 BP 113 / 95; Pulse 87; Resp 18; Temp 97.6(O); Pulse Ox 100% ; Weight 59.87 kg; Height 5 nj1 ft. 5 in. ; Pain 710; 14:46 Body Mass Index 21.97 (59.87 kg, 165.1 cm) nj1 14:46 Pain Scale: Adult nj1 MDM: 14:56 Patient medically screened. snw 15:54 Differential diagnosis: bronchitis, flu, psychosis, hydroxyzine overuse. Data reviewed: snw vital signs, nurses notes. Counseling: I had a detailed discussion with the patient and/or guardian regarding the historical points, exam findings, and any diagnostic results supporting the discharge/admit diagnosis, the need for outpatient follow up, for definitive care, smoking cessation. Special discussion: Based on the history and exam findings, there is no indication for further emergent testing or inpatient evaluation. I discussed with the patient/guardian the need to see the primary care provider for further evaluation of the symptoms. I discussed with the patient/guardian the need to see the psychiatrist for further evaluation of the symptoms, pt not taking prescribed abx. Administered Medications: 15:15 Drug: hydrOXYzine PO 50 mg Route: PO; db 15:23 Follow up: Response: No adverse reaction db Disposition Summary: 02/14/23 15:02 Discharge Ordered Location: Home snw Condition: Stable snw Diagnosis - Patient's unintentional underdosing of medication regimen - financial snw Followup: snw - With: Emergency Department - When: As needed - Reason: Worsening of condition Followup: snw - With: Private Physician - When: Tomorrow - Reason: Recheck today's complaints, Continuance of care, Re-evaluation by your physician Discharge Instructions: - Discharge Summary Sheet snw - Basics of Medicine Management snw - Using Medicines Safely snw Forms: - Medication Reconciliation Form snw - Thank You Letter snw - Antibiotic Education snw - Prescription Opioid Use snw - Patient Portal Instructions snw - Leadership Thank You Letter snw Prescriptions: - Hydroxyzine HCl 50 mg Oral Tablet - take 1 tablet by ORAL route every 8 hours As needed; 20 tablet; Refills: 0, snw Product Selection Permitted Signatures: Debra More FNP-C EDUCATIONAL GUIDANCE COUNSELOR-Csnw Hannah Chu RN RN db Sherrie Fernandez RN RN nj1
--- NOTE | 2023-02-14 15:02 | ER ---
Nurse's Notes [facility] Name: Osvaldo Crowe Age: 37 yrs Sex: Male : 1985 Arrival Date: 02/14/2023 Time: 14:40 Bed 17 Private MD: Diagnosis: Patient's unintentional underdosing of medication regimen-financial Presentation: 02/14 14:46 Chief complaint: Patient states: Left shoulder, back pain since yesterday. Bilateral nj1 ear ringing. Coronavirus screen: Vaccine status: Patient reports receiving the 2nd dose of the covid vaccine. Ebola Screen: Patient denies travel to an Ebola-affected area in the 21 days before illness onset. Initial Sepsis Screen: Does the patient meet any 2 criteria? No. Patient's initial sepsis screen is negative. Does the patient have a suspected source of infection? No. Patient's initial sepsis screen is negative. Risk Assessment: Do you want to hurt yourself or someone else? Patient reports no desire to harm self or others. Onset of symptoms was February 13, 2023. 14:46 Method Of Arrival: Ambulatory [facility] 14:46 Acuity: LUCERO 3 [facility] Triage Assessment: 15:23 General: Appears in no apparent distress. Behavior is anxious. db Historical: - Allergies: 14:47 No Known Allergies; nj1 - PMHx: 14:47 Anxiety; Bipolar disorder; Depression; Panic Attacks; Schizophrenia; Seizures; [facility] - PSHx: 14:47 Open heart surgery; nj1 - Immunization history:: Client reports receiving the 2nd dose of the Covid vaccine. - Social history:: Smoking status: Patient reports the use of cigarette tobacco products, smokes one-half pack cigarettes per day, Patient uses street drugs, Methamphetamine (Meth). Screenin:21 [facility] ED Fall Risk Assessment (Adult) History of falling in the last 3 months, db including since admission No falls in past 3 months (0 pts) Confusion or Disorientation No (0 pts) Intoxicated or Sedated No (0 pts) Impaired Gait No (0 pts) Mobility Assist Device Used No (0 pt) Altered Elimination No (0 pt) Score/Fall Risk Level 0 - 2 = Low Risk Oriented to surroundings, Maintained a safe environment. Abuse screen: Denies threats or abuse. Denies injuries from another. Nutritional screening: No deficits noted. Tuberculosis screening: No symptoms or risk factors identified. Assessment: 15:21 Reassessment: Patient appears in no apparent distress at this time. Patient and/or db family updated on plan of care and expected duration. Pain level reassessed. Patient is alert, oriented x 3, equal unlabored respirations, skin warm/dry/pink. Pain: Complains of pain in right ear and left ear. Vital Signs: 14:46 BP 113 / 95; Pulse 87; Resp 18; Temp 97.6(O); Pulse Ox 100% ; Weight 59.87 kg; Height 5 nj1 ft. 5 in. ; Pain 7/10; 14:46 Body Mass Index 21.97 (59.87 kg, 165.1 cm) nj1 14:46 Pain Scale: Adult [facility] ED Course: 14:41 Patient arrived in ED. im 14:47 Triage completed. nj1 14:48 Arm band placed on left wrist. nj1 14:50 Kathy Nix RN is Primary Nurse. [facility] 14:55 Debra More FNP-C is [facility]. snw 14:55 Teresa Polk MD is Attending Physician. snw 15:21 Patient has correct armband on for positive identification. Bed in low position. Call db light in reach. Side rails up X 1. Provided Education on: DISCHARGE. 15:21 No provider procedures requiring assistance completed. Patient did not have IV access db during this emergency room visit. Administered Medications: 15:15 Drug: hydrOXYzine PO 50 mg Route: PO; db 15:23 Follow up: Response: No adverse reaction db Medication: 15:21 VIS not applicable for this client. db Outcome: 15:02 Discharge ordered by . snw 15:21 Discharged to home ambulatory. db 15:21 Condition: stable 15:21 Discharge instructions given to patient, Instructed on discharge instructions, follow up and referral plans. Prescriptions given X 1. 15:23 Patient left the ED. db Signatures: Debra More FNP-C FNP-Kathy Arevalo, RN RN [id number] Hannah Chu RN RN Sherrie Schwartz RN RN nj1 Marcelina Hutchinson im
[2023-02-14] MEDS ORDERED: hydrOXYzine HCL 25 MG TAB ONE (15:28)
[2023-02-14 15:51] VITALS: BP 113/95; TEMP 97.6; O2SAT 100
== END 2023-02-14 15:23 | disposition home or self-care (01) ==
LOC: ER 14:40
DX: H93.13 Tinnitus, bilateral (principal); Z91.138 Patient's unintentional underdosing of medication regimen for other reason; F17.210 Nicotine dependence, cigarettes, uncomplicated
CPT/HCPCS: 99283